=== PATIENT | female | born 1940 | race Two or more races ===

== ENCOUNTER 2017-01-17 09:47 | Inpatient (IN) | payer MEDICARE, OTHER ==
[2017-01-17] VITALS (7 sets, daily range): BP systolic 119–149; BP diastolic 55–71; PULSE 74–82; RESP 18–22; TEMP 98.4; Ht 157.5 cm; Wt 114.0 kg
[~2017-01-17] VITALS: Ht 157.5 cm; Wt 114.0 kg
[~2017-01-17 09:47] MED LIST: ALBU8.5H5 IH; ASPI-781 PO; BACL10TA PO; CARV3.12 PO; CELE200C PO; CHOL2000 PO; CLON-379 PO; GABA300C16 PO; GLIM2TAB PO; LEVO112T42 PO; LINA145C PO; LORA1TAB PO; MONT10TA21 PO; NIT4 SL; PANT40TA3 PO; PRAM0.25 PO; TRAM50TA2 PO
--- NOTE | 2017-01-17 10:27 | RADRPT ---
PROCEDURE: XR Chest. CLINICAL INDICATION: Stroke TECHNIQUE: Chest AP portable. COMPARISON: 09/25/2015 FINDINGS: The mediastinal structures are unremarkable. There is calcification of the thoracic aorta (consiste nt with atherosclerosis). There is mild cardiomegaly. There is pulmonary venous hypertension. Ther e are low lung volumes. No consolidation is identified. The pleural spaces are unremarkable. Ther e are senescent changes of the axial skeleton. IMPRESSION: Mild cardiomegaly. Pulmonary venous hypertension. RPTAT: HGDB .Erasmo Ziegler MD, MD Date Time Electronically viewed and signed by .Erasmo Ziegler MD, on 01/17/2017 10:26 .B/
[2017-01-17 10:37] LABS: ADD SCAN DIFF NO
[2017-01-17] MEDS ORDERED: AMLO-147 PO (10:37)
[2017-01-17] MEDS ORDERED: SIMV40TA2 PO (10:38)
[2017-01-17] MEDS ORDERED: POTA8CAP PO (10:38)
[2017-01-17] MEDS ORDERED: FURO40TA4 PO (10:38)
[2017-01-17] MEDS ORDERED: EZET10TA3 PO (10:39)
[2017-01-17] MEDS ORDERED: ZOLP10TA5 PO (10:39)
[2017-01-17] MEDS ORDERED: GLIM4TAB PO (10:41)
[2017-01-17] MEDS ORDERED: LORA10TA3 PO (10:42)
[2017-01-17 10:43] LABS: BASOPHILS % 0.3 % (0.0-2.0); EOSINOPHILS % 0.1 % (0.0-7.0); HEMATOCRIT 37.4 % (37.0-47.0); HEMOGLOBIN 11.6 g/dl (12.0-16.0); LYMPHOCYTES # 0.6 10^3/ul (0.8-2.9); LYMPHOCYTES % 7.9 % (15.0-51.0); MEAN CORPUSCULAR HEMOGLOBIN 28.2 pg (29.0-33.0); MEAN PLATELET VOLUME 10.5 fl (7.4-10.4); MONOCYTE # 0.6 10^3/ul (0.3-0.9); MONOCYTES % 7.1 % (0.0-11.0); NEUTROPHIL # 6.6 10^3/ul (1.6-7.5); NEUTROPHILS % 83.7 % (39.0-77.0); PLATELET COUNT 260 10^3/UL (140-415); RED BLOOD COUNT 4.11 10^6/ul (4.20-5.40); RED CELL DISTRIBUTION WIDTH 12.9 % (11.5-14.5); WHITE BLOOD COUNT 7.9 10^3/ul (4.8-10.8)
[2017-01-17] MEDS ORDERED: PRAM0.5T PO (10:48)
[2017-01-17] MEDS ORDERED: VALS1TAB78 PO (10:48)
[2017-01-17] MEDS ORDERED: METF-480 PO (10:51)
[2017-01-17] MEDS ORDERED: ASPI81TA3 PO (10:55)
--- NOTE | 2017-01-17 10:58 | RADRPT ---
PROCEDURE: CT Brain without contrast. CLINICAL INDICATION: Confusion. Evaluate for possible stroke. TECHNIQUE: A CT of the brain was performed on a high-resolution CT scanner utilizing a low dose te chnique with axial imaging from the skull base through the vertex without IV contrast. Multiplanar reformatted images were made. Images were reviewed on a PACS workstation. The CTDIvol is 44 mGy an d the DLP is 630.2 mGycm. One or more of the following dose reduction techniques were used: - Automated exposure control. - Adjustment of the mA and/or kV according to patient size. Use of iterative reconstruction technique. COMPARISON: None FINDINGS: The fourth ventricle is normal in size. The third and lateral ventricles are normal in size and con figuration. ) The brain parenchyma is unremarkable with idiopathic calcifications present in the bas al ganglia. There are chronic small vessel ischemic changes in the periventricular white matter tra cts adjacent to the lateral ventricles. There are vascular calcifications in the cavernous and supra cavernous portions of the internal carotid arteries. The visible portions of the globes and extraocular muscles are normal. The paranasal sinuses are cl ear. The mastoid air cells and internal auditory canals are normal. The bony calvarium is intact. IMPRESSION: 1. No evidence of an acute intracranial bleed or mass. No acute ischemic change is identified. 2. Chronic small vessel ischemic changes in the periventricular white matter tracts adjacent to the lateral ventricles. 3. There are vascular calcifications in the cavernous and supracavernous portions of the internal c arotid arteries. RPTAT:AAJJ Physician Bettina Date Time Electronically viewed and signed by Physician Bettina on 01/17/2017 10:58 NAVARRO/
[2017-01-17 11:02] LABS: CREATININE 9.24 mg/dl (0.44-1.00)
[2017-01-17 11:05] LABS: INR 1.1; PROTIME 14.2 Sec (12.2-14.2); PT RATIO 1.1
[2017-01-17 11:06] LABS: PARTIAL THROMBOPLASTIN TIME 29.8 Sec (25.0-35.0)
[2017-01-17 11:14] LABS: POTASSIUM 7.4 mmol/L (3.5-5.1)
[2017-01-17 11:15] LABS: TROPONIN-I 0.022 ng/ml (0.00-0.12)
[2017-01-17] MEDS ORDERED: DEXTROSE 50% 50 ML SYRINGE IV STA (11:15)
[2017-01-17 11:59] LABS: POTASSIUM 5.5 mmol/L (3.5-5.1)
[2017-01-17 12:01] LABS: CREATININE 7.52 mg/dl (0.44-1.00)
[2017-01-17 12:02] LABS: CALCIUM 6.9 mg/dl (8.4-10.2)
[2017-01-17] MEDS ORDERED: ONDANSETRON 4 MG INJ IV PRN (12:30)
[2017-01-17] MEDS ORDERED: NA BICARBONATE 8.4% 50 ML SYG IV ONE (12:30)
[2017-01-17] MEDS ORDERED: ACETAMINOPHEN 325 MG TAB PO PRN (12:30)
--- NOTE | 2017-01-17 13:50 | ERA ---
ER Documentation Chief Complaint Date/Time DATE: 01/17/17 TIME: 13:47 Chief Complaint fall HPI Patient is a 76-year-old female with diabetes who presents week. The patient was brought in by ambulance. The patient fell down in the street. She feels weak in the right leg and that started today at approximately 8:30 per the [id number]. The patient has had decreased intake by mouth. It is difficult to obtain history otherwise. ROS All systems reviewed and are negative except as per history of present illness. Medications Home Meds Active Scripts Nitroglycerin* (Nitrostat*) 25 Tab Subl, 0.4 MG SL Q5M Y for ANGINA, #30 3 dose max Prov:DAFNE GARCIA 09/27/15 Albuterol Sulfate* (Albuterol Sulfate* HFA) 8.5 Gm Hfa.aer.ad, 2 PUFF IH Q4 for SHORTNESS OF BREATH for 30 Days, EA 2 Refills Prov:RACHID SHAH MD 12/22/14 Reported Medications Aspirin* (Aspirin* Chew) 81 Mg Tab.chew, 81 MG PO DAILY, TAB.CHEW 01/17/17 Metformin* (Glucophage*) 850 Mg Tablet, 850 MG PO WITH BREAKFAST DINNE, #30 TAB 01/17/17 Valsartan-Hydrochlorothiazide (Valsartan-HCTZ) 160-25 Mg Tablet, 1 TAB PO DAILY , #30 TAB 01/17/17 Pramipexole* (Pramipexole*) 0.5 Mg Tablet, 0.5 MG PO HS, TAB 01/17/17 Loratadine* (Loratadine*) 10 Mg Tablet, 10 MG PO DAILY, #30 TAB 01/17/17 Glimepiride* (Glimepiride*) 4 Mg Tablet, 4 MG PO WITH BREAKFAST DINNE, TAB 01/17/17 Zolpidem Tartrate* (Zolpidem Tartrate*) 10 Mg Tablet, 10 MG PO QHS Y for INSOMNIA, #30 TAB 01/17/17 Ezetimibe* (Zetia*) 10 Mg Tablet, 10 MG PO DAILY, TAB 01/17/17 Simvastatin* (Zocor*) 40 Mg Tablet, 40 MG PO QHS, #30 TAB 01/17/17 Potassium Chloride* (Potassium Chloride*) 8 Meq Capsule.er, 8 MEQ PO DAILY, CAP 3/31/17 Furosemide* (Furosemide*) 40 Mg Tablet, 40 MG PO DAILY, TAB 01/17/17 Amlodipine Besylate* (Amlodipine Besylate*) 10 Mg Tablet, 10 MG PO DAILY, #30 TAB 01/17/17 Montelukast Sodium* (Singulair*) 10 Mg Tablet, 10 MG PO QHS, #30 TAB 09/25/15 Celecoxib* (Celebrex*) 200 Mg Capsule, 200 MG PO DAILY, CAP 09/25/15 Gabapentin* (Gabapentin*) 300 Mg Capsule, 300 MG PO BID, CAP 09/25/15 Linaclotide (LINZESS) 145 Mcg Capsule, 145 MCG PO DAILY, CAP 09/25/15 Carvedilol* (Coreg*) 3.125 Mg Tablet, 3.125 MG PO BID, TAB 12/20/14 Levothyroxine Sodium* (Levoxyl*) 112 Mcg Tablet, 112 MCG PO AC BREAKFAST, TAB 08/05/14 Tramadol HCl (Tramadol HCl) 50 Mg Tab, 50 MG PO BID Y for PAIN, TAB 08/05/14 Discontinued Reported Medications Cholecalciferol* (Vitamin D3*) 2,000 Unit Cap, 2000 UNIT PO DAILY, CAP 09/25/15 Lorazepam* (Lorazepam*) 1 Mg Tablet, 1 MG PO DAILY Y for ANXIETY, TAB 12/20/14 Baclofen* (Baclofen*) 10 Mg Tablet, 10 MG PO BID, TAB 08/05/14 Glimepiride* (Glimepiride*) 2 Mg Tablet, 2 MG PO BID, TAB 08/05/14 Pramipexole* (Pramipexole*) 0.25 Mg Tablet, 0.25 MG PO HS, TAB 08/05/14 Discontinued Scripts Pantoprazole* (Protonix*) 40 Mg Tablet.dr, 40 MG PO BID for 30 Days, TAB Prov:DAFNE GARCIA 09/28/15 Clonidine Hcl* (Clonidine Hcl*) 0.1 Mg Tab, 0.1 MG PO Q6H Y for ELEVATED BLOOD PRESSURE, #30 TAB Prov:DAFNE GARCIA 09/27/15 Aspirin* (Ecotrin*) 325 Mg Tabec, 81 MG PO DAILY for 30 Days Prov:DAFNE GARCIA 09/27/15 Allergies Allergies: Coded Allergies: No Known Drug Allergy (Verified Allergy, Unknown, 09/25/15) PMhx/Soc History of Surgery: Yes (HYSTERECTOMY) Anesthesia Reaction: No Hx Neurological Disorder: No Hx Respiratory Disorders: Yes (ASTHMA,BRONCHITIS) Hx Cardiac Disorders: Yes (CHF,HTN) Hx Psychiatric Problems: No Hx Miscellaneous Medical Probl: No Hx Alcohol Use: No Hx Substance Use: No Hx Tobacco Use: No FmHx Family History: No diabetes Physical Exam Vitals Vital Signs Date Time Temp Pulse Resp B/P Pulse Ox O2 Delivery O2 Flow Rate FiO2 01/17/17 12:09 89 19 118/63 100 Nasal Cannula 5.0 01/17/17 10:32 98.4 87 13 130/54 92 01/17/17 10:15 98.4 87 13 130/54 92 Room Air Physical Exam Const: No acute distress Head: Atraumatic Eyes: Normal Conjunctiva ENT: Normal External Ears, Nose and Mouth. Neck: Full range of motion..~ No meningismus. Resp: Clear to auscultation bilaterally Cardio: Regular rate and rhythm, no murmurs Abd: Soft, non tender, non distended. Normal bowel sounds Skin: No petechiae or rashes Back: No midline or flank tenderness Ext: No cyanosis, or edema Neur: Awake and alert, cranial nerves II through XII are intact, right lower extremity appears weaker than the left lower extremity although she is able to lift off the bed, no pronator drift Psych: Normal Mood and Affect Result Diagram: 01/17/17 1029 01/17/17 1145 Results 24 hrs Laboratory Tests Test 01/17/17 10:29 01/17/17 11:45 White Blood Count 7.910^3/ul Red Blood Count 4.1110^6/ul Hemoglobin 11.6g/dl Hematocrit 37.4% Mean Corpuscular Volume 91.0fl Mean Corpuscular Hemoglobin 28.2pg Mean Corpuscular Hemoglobin Concent 31.0g/dl Red Cell Distribution Width 12.9% Platelet Count 59905^3/UL Mean Platelet Volume 10.5fl Neutrophils % 83.7% Lymphocytes % 7.9% Monocytes % 7.1% Eosinophils % 0.1% Basophils % 0.3% Nucleated Red Blood Cells % 0.0/100WBC Neutrophils # 6.610^3/ul Lymphocytes # 0.610^3/ul Monocytes # 0.610^3/ul Eosinophils # 0.010^3/ul Basophils # 0.010^3/ul Nucleated Red Blood Cells # 0.010^3/ul Prothrombin Time 14.2Sec Prothrombin Time Ratio 1.1 INR International Normalized Ratio 1.10 Activated Partial Thromboplast Time 29.8Sec Sodium Level 132mmol/L 134mmol/L Potassium Level 7.4mmol/L 5.5mmol/L Chloride Level 94mmol/L 102mmol/L Carbon Dioxide Level 19mmol/L 18mmol/L Anion Gap 26 20 Blood Urea Nitrogen 91mg/dl 81mg/dl Creatinine 9.24mg/dl 7.52mg/dl Glucose Level 43mg/dl 398mg/dl Hemoglobin A1c 7.8% Calcium Level 9.0mg/dl 6.9mg/dl Troponin I 0.022ng/ml Current Medications Medications (Trade) Dose Ordered Sig/Tristian Route PRN Reason Start Time Stop Time Status Last Admin Dose Admin Dextrose (D50w Syringe) 50 ml ONCE STAT IV 01/17/17 11:15 01/17/17 11:16 DC 01/17/17 11:37 Sodium Bicarbonate (Na Bicarb 8.4% Syg) 50 ml ONCE ONCE IV 01/17/17 12:30 01/17/17 12:31 DC 01/17/17 12:27 Ondansetron HCl (Zofran Inj) 4 mg ER BRIDGE PRN IV NAUSEA AND/OR VOMITING 01/17/17 12:30 01/18/17 12:29 Acetaminophen (Tylenol Tab) 650 mg ER BRIDGE PRN PO MILD PAIN/FEVER 01/17/17 12:30 01/18/17 12:29 Procedures/MDM EKG read by me: Rate/Rhythm: Regular rate and rhythm at a normal rate Intervals: Normal Impression: No evidence of ischemia or arrhythmia PROCEDURE: CT Brain without contrast. CLINICAL INDICATION: Confusion. Evaluate for possible stroke. TECHNIQUE: A CT of the brain was performed on a high-resolution CT scanner utilizing a low dose technique with axial imaging from the skull base through the vertex without IV contrast. Multiplanar reformatted images were made. Images were reviewed on a PACS workstation. The CTDIvol is 44 mGy and the DLP is 630.2 mGycm. One or more of the following dose reduction techniques were used: - Automated exposure control. - Adjustment of the mA and/or kV according to patient size. Use of iterative reconstruction technique. COMPARISON: None FINDINGS: The fourth ventricle is normal in size. The third and lateral ventricles are normal in size and configuration. ) The brain parenchyma is unremarkable with idiopathic calcifications present in the basal ganglia. There are chronic small vessel ischemic changes in the periventricular white matter tracts adjacent to the lateral ventricles. There are vascular calcifications in the cavernous and supracavernous portions of the internal carotid arteries. The visible portions of the globes and extraocular muscles are normal. The paranasal sinuses are clear. The mastoid air cells and internal auditory canals are normal. The bony calvarium is intact. IMPRESSION: 1. No evidence of an acute intracranial bleed or mass. No acute ischemic change is identified. 2. Chronic small vessel ischemic changes in the periventricular white matter tracts adjacent to the lateral ventricles. 3. There are vascular calcifications in the cavernous and supracavernous portions of the internal carotid arteries. RPTAT:AAJJ Physician Bettina Date Time Electronically viewed and signed by Ishaan Mayes Physician on 01/17/2017 10:58 Patient is a 76-year-old female with diabetes who presents with weakness. The patient had a full workup but at this point I doubt true stroke. She was found to have acute renal failure with a BUN and creatinine of 81 and 7.52 and a potassium of 5.5. I believe this is likely the cause of her symptoms and weakness. The patient will likely need fluid resuscitation and will need to be evaluated to see if she will require dialysis. She was given D50 for hypoglycemia and then was given bicarbonate for the hyperkalemia. The patient will be admitted to Dr. Royal from the panel team to a telemetry bed. Given the age her prognosis is poor. At this point I doubt stroke, acute coronary syndrome, pulmonary embolism, or aortic dissection. Critical Care: Time: 35 minutes excluding all billable procedures. Treatments/Evaluations: Close monitoring and treatment of unstable vital signs, cardiorespiratory, and neurologic status, while maintaining tight balance of fluid, respiratory, and cardiac interventions. Departure Diagnosis: Primary Impression: Hyperkalemia Additional Impressions: Acute renal failure Qualified Code: N17.9 - Acute renal failure, unspecified acute renal failure type Weakness Condition: Serious RAFFAELE DONALDSON MD Jan 17, 2017 13:50
[2017-01-17] MEDS ORDERED: NACL 0.9% 3 ML SYG IV SCH (15:00)
[2017-01-17] MEDS ORDERED: ZOLPIDEM 5 MG TAB PO PRN (15:00)
[2017-01-17] MEDS ORDERED: NITROGLYCERIN (SL) 0.4 MG TAB SL PRN (15:00)
[2017-01-17] MEDS ORDERED: ALBUTEROL/IPRATROPIUM (NEB) 3 ML AMP HHN PRN (15:00)
--- NOTE | 2017-01-17 16:25 | HP ---
DATE OF ADMISSION: 01/17/2017 CHIEF COMPLAINT: Recent mechanical fall with suspicion of syncope. HISTORY OF PRESENT ILLNESS: This is a 76-year-old female with reported past medical history of diab etes as well as reported CHF, dyslipidemia, hypertension, obesity, diabetes, hypothyroidism who came to [facility] after suffering from a mechanical fall with suspect syncope. Accor ding to report, the patient was in her normal state of health. It was reported that she went to the bank this morning and that she had fallen to the floor. Accounts of this story are not very clear as the patient reported to be somnolent during visit and most history obtained from family members. The patient, however, was brought to [facility] by paramedics. On further examin ation, she was found to be in acute renal failure with a creatinine as high as 9.24. BUN respective ly at 91. She was also found to be hypoglycemic with blood glucose as low as 43. She was reportedl y given dextrose in the ER with good response. After discussion with family, was reported that she had just started to be placed on insulin. Exact units of this are unknown. Additionally, on admiss ion, she was found to have hyperkalemia at 10.4. From a recent review, she did have normal renal fu nction, roughly in September 2015 when she was admitted to the hospital. However, further decline of her renal function and etiology is unknown at this time. She also did have a chest x-ray done that did show her to have some mild cardiomegaly and pulmonary venous congestion. She also had brain CT scan of her head that did show no evidence of acute intracranial bleed or mass. No acute ischemic changes seen. There was seen chronic small vessel ischemic changes. The patient was afebrile. Cur rently, the patient is alert. She does report better breathing, but she is somewhat somnolent. We will evaluate her for the aforementioned issues. MEDICAL AND SURGICAL HISTORY 1. Congestive heart failure. 2. Diabetes. 3. Hypertension. 4. History of chronic obstructive pulmonary disease. 5. Hypothyroidism. 6. Dyslipidemia. SOCIAL HISTORY: No reports of cigarette smoking, alcohol consumption, or other illicit drug use. ALLERGIES: NO KNOWN ALLERGIES. FAMILY HISTORY: Noncontributory. HOME MEDICATIONS: 1. Loratadine 10 mg p.o. daily. 2. Albuterol HFA 2 puffs q hours as needed for shortness of breath. 3. Amlodipine 10 mg p.o. daily. 4. Carvedilol 3.125 mg p.o. b.i.d. 5. Zetia 10 mg p.o. every day. 6. Nitrostat 0.4 mg sublingual every 5 minutes as needed for chest pain. 7. Zocor 40 mg p.o. at bedtime. 8. Valsartan hydrochlorothiazide 160/25 one tab p.o. every day. 9. Aspirin 81 mg p.o. daily. 10. Celebrex 200 mg p.o. daily. 11. Neurontin 300 mg p.o. b.i.d. 12. Pramipexole 0.5 mg p.o. at bedtime. 13. Ambien 10 mg p.o. at bedtime as needed for insomnia. 14. Lasix 40 mg p.o. daily. 15. Potassium chloride 8 mEq p.o. every day. 16. Singulair 10 mg p.o. at bedtime. 17. Linzess 145 mcg p.o. daily. 18. Glimepiride 4 mg p.o. with breakfast. 19. Levothyroxine 112 mcg p.o. before every meal. 20. Metformin 850 mg p.o. with breakfast. REVIEW OF SYSTEMS: Unable to obtain full review of systems as the patient was somewhat somnolent du [facility]. PHYSICAL EXAMINATION: VITAL SIGNS: Temperature is 98.0, pulse 82, respiratory rate is 19, blood pressure 0.119/55, and pu lse ox is 94% on room air. GENERAL: This is a 76-year-old female, somewhat somnolent. No apparent signs or symptoms of distre ss at this time. EYES: Pupils equal, round, and reactive to light. Anicteric sclerae. NECK: The neck is supple, nontender, no JVD. CARDIOVASCULAR: S1, S2 auscultated, regular rate. PULMONARY: Diminished at lung bases. ABDOMEN: The patient is noted to be obese, but soft, nontender. EXTREMITIES: There is edema of bilateral lower extremities, +1 to +2. SKIN: Warm, dry, and intact. NEUROLOGIC: The patient is alert to verbal response, but somewhat lethargic. LABORATORY DATA: WBC 7.9, hemoglobin 11.6, hematocrit is 37.4, and platelets are 260. Sodium is 13 4, potassium now is 5.5, BUN is 81, creatinine 7.52, glucose now at 398. IMAGING: Chest x-ray done on 01/17/2017 did show mild cardiomegaly and pulmonary venous hypertensio n. Brain CT scan of the head on 01/17/2017 did show no evidence of acute intracranial bleed or mass , and no acute ischemic change identified and only chronic small vessel ischemic changes. IMPRESSION AND PLAN: 1. Mechanical fall, suspect syncope. The patient noted to be hypoglycemic during admission, likely attributing to her fall. Will adjust antidiabetic medications. Place the patient on mild insulin scale for now. Will get cylinder dyer pending clinical course. Of note, CT scan of the brain was negative. We will follow up on carotid study and echocardiogram. 2. Hypoglycemia. It was noted per patient's family that she was recently started on insulin. Exac t units of this are unknown. Will adjust insulin regimen. We will continue to monitor neuro status . Appears improved at present. 3. Acute renal failure. The patient with initial creatinine of 9.24 and BUN of 91. This is a sign ificant change from her baseline seen in September 2015. Stereoplotter Operator consulted. The patient also n oted to be hyperkalemic with renal dysfunction. Will provide with Kayexalate as needed. Follow up with the day care home mother's recommendations. 4. Hyperkalemia. We will provide with Kayexalate as needed. Follow up with nephrology recommendat ions. 5. Congestive heart failure with exacerbation. The patient was noted with pulmonary venous congest ion. Will defer diuretics to day care home mother. Will get a hedge fund principal to follow. We will place alex ent on bronchodilators as needed. We will continue the patient on oxygen supplement. 6. History of diabetes. We will follow up on A1c. The patient on insulin regimen for now. 7. Essential hypertension. We will continue with antihypertensives and adjust as needed. 8. History of dyslipidemia. Follow up on fasting lipid panel. We will continue the patient on dys lipidemia medication. 9. History of hypothyroidism. We will resume the patient's Synthroid medication for now. 10. History of diabetes. Follow up with A1c. The patient to will be continued on Neurontin for ne uropathy. ADMISSION PROCESS TIME: Forty minutes. Discussed plan of care with Dr. Villalba. Dictated By: DAFNE GARCIA MONOGRAM MACHINE OPERATOR for RODY HICKS/AYDIN Conf#: [id number] DID#: [id number]
[2017-01-17] MEDS ORDERED: GLUCOSE GEL 15 GRAM TUBE BUCCAL PRN (16:30)
[2017-01-17] MEDS ORDERED: GLUCAGON 1 MG INJ IM PRN (16:30)
[2017-01-17] MEDS ORDERED: GLUCOSE GEL 15 GRAM TUBE PO PRN ×2 (16:30)
[2017-01-17 16:47] LABS: ALBUMIN 4.3 g/dl (3.3-4.9)
[2017-01-17 16:50] LABS: TOTAL PROTEIN 7.4 g/dl (6.1-8.1)
--- NOTE | 2017-01-17 16:52 | RADRPT ---
Echocardiogram Report Patient Name: MAYUR RICHARDSON Gender: Female Date: 1940 Study Date: 17-Jan-2017 Associate Creative Director: Zayra Slater [facility] Location: [facility] Ref. Physician: DAFNE GARCIA Quality: Technically Difficult Study Procedures: Transthoracic echocardiogram with complete 2D, M-Mode, and doppler examination. Indications: Dyspnea. 2D/M Mode Doppler Measurement Value Normal Ranges Measurement Value Normal Ranges LVIDd 2D 5.3 3.5 - 5.6 cm AV Peak Ariel 2.3 m/sec LVIDs 2D 2.3 2.1 - 4.1 cm AV Peak PG 21.0 mmHg FS 2D 57.8 % LVOT Peak Ariel 1.5 m/sec LVPWd 2D 1.1 0.6 - 1.1 cm LVOT Peak PG 9.0 mmHg IVSd 2D 1.1 0.6 - 1.1 cm MV E Peak Ariel 0.8 m/sec IVS/LVPW 2D 1.0 MV A Peak Ariel 0.8 m/sec AoR Diam 2D 2.9 2.0 - 3.7 cm MV E/A 0.9 LA/Ao 2D 1 0 - 1 MV Decel Time 225 msec EDV 2D 151.0 cm3 MV E/A 0.9 ESV 2D 11.4 cm3 TR Peak Ariel 3.2 m/sec LA Dimen 2D 3.3 2.3 - 4.0 cm TR Peak PG 41.0 mmHg RVSP 49.0 mmHg Findings Left Ventricle: Normal left ventricular systolic function. Normal left ventricular cavity size. Normal left ventricular wall thickness. Ejection fraction is visually estimated at 6065 %. Tissue Doppler/Mitral Doppler indices are consistent with impaired relaxation (Stage I diastolic dysfunction). Right Ventricle: Normal right ventricular size. Normal right ventricular systolic function. Left Atrium: The left atrium is normal in size. Right Atrium: The right atrium is normal in size. Mitral Valve: Normal appearance of the mitral valve. Mild mitral annular calcification. Trace mitral regurgitation. Aortic Valve: Aortic sclerosis without stenosis. Trace aortic valve regurgitation. Tricuspid Valve: Estimated peak PA systolic pressure 49 mmHg. There is mild tricuspid regurgitation. Pulmonic Valve: Normal pulmonic valve appearance. Pericardium: Normal pericardium with no significant pericardial effusion. Aorta: Normal aortic root. IVC: Normal size and no respiratory collapse consistent with elevated right atrial pressure. Conclusions 1.The left ventricle is normal in size and systolic function. 2.Estimated left ventricular ejection fraction of 60-65%. 3.Mild left ventricular diastolic dysfunction. 4.Estimated RVSP of 49 mmHg. Electronically Signed By: Erick Sanchez 17-Jan-2017 16:51:53 -0700 Patient Name: MAYUR RICHARDSON Study Date: 17-Jan-2017 [id number]
[2017-01-17] MEDS: ALBUTEROL 18 GM INHALER INH SCH ×2 (17:00→21:00)
[2017-01-17] MEDS: ALBUTEROL/IPRATROPIUM (NEB) 3 ML AMP HHN SCH ×2 (17:00→20:58)
[2017-01-17] MEDS: DEXTROSE 50% 50 ML SYRINGE IV PRN (17:28)
[2017-01-17] MEDS: INSULIN ASPART [NOVOLOG] 3 ML PEN SC SCH ×2 (17:28→21:00)
[2017-01-17] MEDS ORDERED: SOD CHLORIDE 0.9% 1,000 ML IV SCH (18:00)
[2017-01-17] MEDS ORDERED: NA POLYST SULFON 15 GM/60 ML BTL PO ONE ×2 (18:00→22:30)
--- NOTE | 2017-01-17 20:14 | RADRPT ---
PROCEDURE: Renal US. CLINICAL INDICATION: Acute kidney injury. TECHNIQUE: Multiple sonographic images of the kidneys and urinary bladder were obtained. The imag es were reviewed on a PACS workstation. COMPARISON: No prior studies are available for comparison. FINDINGS: The right kidney measures 12.3 cm. The left kidney measures 11.1 cm. There is no renal mass. There is no hydronephrosis. There is no renal calculus. Renal parenchymal thickness and echogenicity is normal bilaterally. The perirenal regions are normal with no fluid collection or mass. The urinary bladder is empty. IMPRESSION: 1. Empty urinary bladder. 2. Normal kidneys with no hydronephrosis. RPTAT: QQ .Scott Borrego MD, Date Time Electronically viewed and signed by .Scott Borrego MD, MD on 01/17/2017 20:14 .R/
[2017-01-17 20:16] LABS: CREATININE 9.91 mg/dl (0.44-1.00)
[2017-01-17 20:17] LABS: CALCIUM 8.7 mg/dl (8.4-10.2)
[2017-01-17 20:21] LABS: POTASSIUM 7.2 mmol/L (3.5-5.1)
[2017-01-17] MEDS ORDERED: NON-FORMULARY/PATIENT OWN MED (Simvastatin* (Zocor*) 40 MG) PO SCH (21:00)
[2017-01-17] MEDS: MONTELUKAST 10 MG TAB PO SCH (21:12)
[2017-01-17] MEDS: ATORVASTATIN 20 MG TAB PO SCH (21:12)
[2017-01-17] MEDS: GABAPENTIN 300 MG CAP PO SCH (21:12)
[2017-01-17] MEDS ORDERED: CALCIUM GLUCONATE 10% 2 GM in SOD CHLORIDE 0.9% 100 ML IVPB ONE (23:00)
[2017-01-17] MEDS: PRAMIPEXOLE 0.25 MG TAB PO SCH (23:06)
[2017-01-17] MEDS ORDERED: ONDANSETRON INJ 8 MG in DEXTROSE 5% 50 ML IV PRN (23:30)
[2017-01-18] VITALS (18 sets, daily range): BP systolic 94–140; BP diastolic 52–68; PULSE 50–92; RESP 18–20
[2017-01-18] MEDS: ALBUTEROL 18 GM INHALER INH SCH ×6 (01:14→20:26)
[2017-01-18] MEDS: DEXTROSE 50% 50 ML SYRINGE IV PRN ×3 (02:54→11:11)
[2017-01-18] MEDS: ACCU-CHEK XX SCH (02:54)
[2017-01-18] MEDS: DEXTROSE 5%-0.45% NACL 1,000 ML IV SCH (04:00)
--- NOTE | 2017-01-18 05:45 | CONS ---
DATE OF ADMISSION: 01/17/2017 DATE OF CONSULTATION: 01/17/2017 TYPE OF CONSULTATION: Nephrology. REASON FOR CONSULTATION: Acute kidney injury and hyperkalemia. PHYSICIAN REQUESTING CONSULT: Nehemias Reyes NP HISTORY OF PRESENT ILLNESS: This is a 76-year-old female with a past medical history of CKD stage I II with unknown baseline creatinine, history of diabetes, history of CHF, dyslipidemia, hypertension , obesity, hypothyroidism, history of venous insufficiency, who presents to [facility] after suffering a mechanical fall with possible syncope. The patient was apparently in her [facility] state of health until 1 week ago according to the patient's daughter who was at bedside. She st ates over this time, the patient has been slightly more lethargic and confused. The patient had an apparent syncopal episode. As a result she was brought into the emergency room for evaluation. Upo n arrival, the patient was noted to be in acute kidney injury with a creatinine of 9.24, BUN of 91 a nd potassium 7.4. In the emergency room, the patient had a chest x-ray which showed mild cardiomega ly, pulmonary venous hypertension, and a CT scan of the head which showed no acute findings. The pa delgado was treated with sodium bicarbonate IV and dextrose. She was admitted to telemetry for furthe r evaluation. In terms of patient's renal history, per patient's daughter, she had some underlying CKD according t o her primary care physician but does not know what her baseline creatinine or her estimated EGFR is . The patient reports taking NSAIDs, Celebrex as well as taking diuretics, Lasix, hydrochlorothiazi de and valsartan as well as potassium supplementation. The patient denies any recent change in urin sindy output and denies any frothy urine. She denies any rashes, hematochezia or hemoptysis. PAST MEDICAL HISTORY: History of congestive heart failure, diabetes, hypertension, COPD, hypothyroi dism and dyslipidemia. SOCIAL HISTORY: No drinking or alcohol use. ALLERGIES: NO KNOWN DRUG ALLERGIES. FAMILY HISTORY: Noncontributory. MEDICATIONS: The patient's medications have been reviewed. PAST SURGICAL HISTORY: None. REVIEW OF SYSTEMS: A 14-point review of systems was conducted. Pertinent positives in HPI, otherwi se negative. PHYSICAL EXAMINATION: VITAL SIGNS: Blood pressure is 125/60, respiration is 14, pulse 82, temperature 98.0. HEENT: Head is normocephalic. NECK: Supple. Pupils are reactive. HEART: Regular rate. LUNGS: Show diminished breath sounds at base. ABDOMEN: Soft, obese, nontender to palpation without rebound or guarding. EXTREMITIES: Negative for clubbing, cyanosis. Positive nonpitting edema. DERMATOLOGIC: No rashes. MUSCULOSKELETAL: No joint effusions. NEUROLOGIC: Limited exam but no focal deficits. LABORATORY DATA: Shows a sodium 134, potassium 5, chloride 102, bicarbonate 18, BUN 81, creatinine 7.52, glucose 398. Hemoglobin A1c 7.8, calcium 6.9. White count 7.9, hemoglobin 11.6, hematocrit 3 7.4, platelet count is 260. IMAGING STUDIES: As stated in HPI. ASSESSMENT AND PLAN: This is a 76-year-old female who presents with: 1. Nonoliguric acute kidney injury on top of chronic kidney disease with unknown baseline creatinin e. Etiology of acute kidney injury is multifactorial secondary to hemodynamics, volume depletion fr om diuretic use and ARB effect. The possibility of tubular injury is also a consideration. Less l ikely is an acute GN, vasculitis or interstitial nephritis given the patient's clinical presentation . However, a full work will be done. We will check a renal ultrasound to rule out obstruction. Wi ll check UA with microanalysis. Will check urine electrolytes, calculate FENa (fractional excretio n of urea). Will start the patient on gentle IV hydration. Will hold diuretics, ARB and NSAID use. Will monitor renal function and I's and O's closely. There is no immediate need for renal replace ment therapy at this time; however, if renal function should not improve and/or the patient's hyperk alemia should worsen, would consider starting dialysis. 2. Hyperkalemia. Etiology is multifactorial secondary to acute kidney injury, ARB effect and potas sium supplementation. The patient's potassium levels have improved with medical management. Plan a t this point is to continue current IV hydration and will monitor potassium levels closely. We will repeat a BMP. If potassium levels are not able to be controlled through medical management, will th en consider starting renal replacement therapy. Please also note the patient's underlying hyperglyce miguel is a contributing factor. Would also expect potassium levels to improve once the patient achiev es euglycemic status. 3. Hyponatremia secondary to acute kidney injury and hyperglycemia. Continue to monitor. 4. Metabolic acidosis secondary to acute kidney injury. The plan is to monitor bicarbonate levels, consider checking an ABG. Patient is status post bicarbonate. No need for bicarbonate drip at thi s time. 5. Mineral bone disorder. Continue to monitor calcium and phosphorus levels. 6. Possible syncope, etiology was secondary to hemodynamics CT scan is negative. Continue to monit or. 7. History of congestive heart failure. The patient appears to be near euvolemic status. Chest x- ray shows pulmonary hypertension but no pulmonary edema. A 2D echo shows preserved ejection fractio n, elevated and dilated IVC, which may be secondary to pulmonary hypertension. At this point, will give the patient very gentle fluid challenge monitoring respiratory status, I's and O's closely. Ho ld diuretic therapy at this time. 8. Dyslipidemia. Continue statin therapy. 9. Hypothyroidism. Continue Synthroid. 10. Diabetes, continue Accu-Cheks and sliding scale. Thank you, Nehemias, for this interesting consultation. It will be a pleasure to follow patient with you throughout the hospital course. Dictated By: ELINA LAFLEUR/AYDIN Conf#: [id number] DID#: [id number]
[2017-01-18 07:20] LABS: ADD SCAN DIFF NO
[2017-01-18 07:37] LABS: BASOPHILS % 0.1 % (0.0-2.0); EOSINOPHILS % 0.1 % (0.0-7.0); HEMATOCRIT 36.1 % (37.0-47.0); HEMOGLOBIN 11.2 g/dl (12.0-16.0); LYMPHOCYTES % 11.5 % (15.0-51.0); MEAN CORPUSCULAR HEMOGLOBIN 28.5 pg (29.0-33.0); MEAN CORPUSCULAR VOLUME 91.9 fl (82.0-101.0); MEAN PLATELET VOLUME 11.2 fl (7.4-10.4); MONOCYTE # 0.6 10^3/ul (0.3-0.9); MONOCYTES % 7.6 % (0.0-11.0); NEUTROPHIL # 6.7 10^3/ul (1.6-7.5); NEUTROPHILS % 80.1 % (39.0-77.0); PLATELET COUNT 250 10^3/UL (140-415); RED BLOOD COUNT 3.93 10^6/ul (4.20-5.40); WHITE BLOOD COUNT 8.3 10^3/ul (4.8-10.8)
[2017-01-18 07:55] LABS: ALBUMIN 3.8 g/dl (3.3-4.9)
[2017-01-18] MEDS: INSULIN ASPART [NOVOLOG] 3 ML PEN SC SCH ×4 (07:55→20:35)
[2017-01-18 07:58] LABS: ALBUMIN/GLOBULIN RATIO 1.58; CREATININE 9.65 mg/dl (0.44-1.00); TOTAL PROTEIN 6.2 g/dl (6.1-8.1)
[2017-01-18 07:59] LABS: MAGNESIUM 1.9 mg/dl (1.7-2.5); PHOSPHORUS 7.9 mg/dl (2.5-4.9)
[2017-01-18 08:00] LABS: CHOL/HDL RATIO 4.3 RATIO
[2017-01-18 08:03] LABS: POTASSIUM 6.5 mmol/L (3.5-5.1)
[2017-01-18 08:13] LABS: T3 UPTAKE 41.7 % (23.5-40.5)
[2017-01-18 08:27] LABS: THYROID STIMULATING HORMONE 0.558 MIU/L (0.465-4.680)
[2017-01-18] MEDS ORDERED: NA POLYST SULFON 15 GM/60 ML BTL PO ONE (08:30)
[2017-01-18] MEDS ORDERED: CELECOXIB 200 MG CAP PO SCH (09:00)
[2017-01-18] MEDS ORDERED: NON-FORMULARY/PATIENT OWN MED (Linaclotide (Linzess) 145 MCG) PO SCH (09:00)
[2017-01-18] MEDS ORDERED: AMLODIPINE 10 MG TAB PO SCH (09:00)
[2017-01-18] MEDS: ALBUTEROL/IPRATROPIUM (NEB) 3 ML AMP HHN SCH ×4 (09:00→19:59)
[2017-01-18] MEDS: ASPIRIN 81 MG TAB PO SCH (09:20)
[2017-01-18] MEDS: EZETIMIBE 10 MG TAB PO SCH (09:20)
[2017-01-18] MEDS: LORATADINE 10 MG TAB PO SCH (09:20)
[2017-01-18] MEDS: LEVOTHYROXINE 112 MCG TAB PO SCH (09:20)
[2017-01-18] MEDS: GABAPENTIN 300 MG CAP PO SCH ×2 (09:21→20:23)
--- NOTE | 2017-01-18 09:53 | HP ---
DATE OF ADMISSION: 01/17/2017 VASCULAR SURGERY CONSULTATION Dear Doctors: Ms. Shetty is a 76-year-old female with a plethora of medical conditions who presented to [facility] secondary to a mechanical fall, with a suggestion of possible syncope. Niurka g her workup it was identified the patient having significant renal failure with hyperkalemia, in wh ich she requires emergent hemodialysis. Vascular surgical consultation was obtained for evaluation. At the moment, the patient does not seem to be mentating well and unable to answer any further que stions. REVIEW OF SYSTEMS: Unable to ascertain, as the patient unable to answer questions appropriately. PAST MEDICAL HISTORY: Entails congestive heart failure, unspecified diastolic or systolic, diabetes , hypertension, chronic obstructive pulmonary disease, hypothyroidism, dyslipidemia, significant mor bid obesity, BMI of 46, coronary artery disease, varicose veins. SURGICAL HISTORY: Unable to obtain any further information in regards to that for now, as the fami ly is not available at the bedside. SOCIAL HISTORY: There are reports from her records of no tobacco, alcohol or illicit drug use. ALLERGIES: NO KNOWN DRUG ALLERGIES. FAMILY HISTORY: Unable to ascertain. PHYSICAL EXAMINATION: GENERAL: Patient is awake and alert; however, not to orientation and time. HEENT: Normocephalic, atraumatic. EOMI. Mucosa moist. NECK: Supple. No carotid bruit. PULMONARY: Coarse breath sounds bilaterally, some crackles at the bases. CARDIOVASCULAR: S1, S2 present. No murmurs identified. ABDOMEN: Soft, nontender, nondistended. Bowel sounds positive. Large truncal obesity and pannus. EXTREMITIES: Very large legs. Unable to palpate the femoral pulse secondary to body habitus. Unab le to palpate pedal pulses secondary to edema. Motor and sensory seem to be intact. Capillary refi ll of 3 to 4 seconds. Extensive varicose veins throughout the lower legs from ankles all the way up to the knees and the large calves. ASSESSMENT AND PLAN: 1. Acute renal failure. It seems the patient has developed significant renal failure and hyperkalem ia in which she would require her hemodialysis urgently. Will plan to place an emergent hemodialysi s catheter for the patient. Will continue to follow with our nephrology colleagues as to ascertain if the patient had a baseline chronic kidney disease and if there is any further advancement of her renal failure. 2. Optimize vascular status (BP meds, diet, nutrition, exercise, sugar control, antiplatelets and w eight loss). 3. Discussed findings, plan and management with the patient's primary service. Thank you for allowing us to partake in the care of your patient. Please call with any questions. Dictated By: ALEIDA MUÑOZ/AYDIN Conf#: [id number] DID#: [id number]
--- NOTE | 2017-01-18 11:18 | PN ---
Date/Time of Note Date/Time of Note DATE: 01/18/17 TIME: 11:05 Assessment/Plan VTE Prophylaxis VTE Prophylaxis Intervention: SCD's Lines/Catheters IV [facility] Saline Lock Urinary Cath still in place: No Assessment/Plan Chief Complaint/Hosp Course 1. Mechanical fall, suspect syncope. The patient noted to be hypoglycemic during admission, likely attributing to her fall. Continue the patient on mild insulin scale for now. . Of note, CT scan of the brain was negative. We will follow up on carotid study and echocardiogram. 2. Hypoglycemia. It was noted per patient's family that she was recently started on insulin. Exact units of this are unknown. Considering patient's renal failure and patient on glimepiride at home, could have contributed to prolonged hypoglycemia. Will discontinue the medication of glimepiride. Monitor blood glucose before meals at bedtime 3. Acute renal failure. The patient with initial creatinine of 9.24 and BUN of 91. This is a significant change from her baseline seen in September 2015. Disk Sharpener following. Still with worse renal function. continue a diagnostic workup. Plan for dialysis 4. Hyperkalemia. We will provide with Kayexalate as needed. Follow up with nephrology recommendations. Plan for dialysis 5. Congestive heart failure with exacerbation. The patient was noted with pulmonary venous congestion. Will defer diuretics to kitchen lead. special technical operations officer to follow. We will place patient on bronchodilators as needed. We will continue the patient on oxygen supplement and titrate down as tolerated 6. History of diabetes. A1c: 7.7. The patient on insulin regimen for now. 7. Essential hypertension. We will continue with antihypertensives and adjust as needed. 8. History of dyslipidemia. Follow up on fasting lipid panel. We will continue the patient on dyslipidemia medication. 9. History of hypothyroidism. We will resume the patient's Synthroid medication for now. DISPO/PLAN: with worse renal function. plan for HD per kitchen lead Discussed plan of care with Dr. Villalba Problems: Subjective 24 Hr Interval Summary Free Text/Dictation more awake and alert at this time. family at bedside. Exam/Review of Systems Vital Signs Vitals Vital Signs Date Time Temp Pulse Resp B/P Pulse Ox O2 Delivery O2 Flow Rate FiO2 01/18/17 08:14 77 01/18/17 07:47 98.1 18 115/53 95 01/18/17 00:57 3.0 01/17/17 17:37 Nasal Cannula Intake and Output 01/17/17 01/17/17 01/18/17 15:00 23:00 07:00 Intake Total 240 ml 400 ml Output Total 3 ml Balance 240 ml 397 ml Exam General: Comfortable Eyes: Equal round Neck: Supple nontender, no JVD Cardiac: Regular rate. Pulmonary: No obvious wheezing rhonchi GI: Obese. Soft nontender Extremities: Minimal edema bilateral lower extremities Skin: CDI Neurologic: Alert and oriented 3 Results Result Diagram: 01/18/17 0602 01/18/17 0602 Results 24 hrs Laboratory Tests Test 01/17/17 11:45 01/17/17 16:20 01/17/17 17:27 01/17/17 17:59 Sodium Level 134 L Potassium Level 5.5 H Chloride Level 102 Carbon Dioxide Level 18 L Anion Gap 20 H Blood Urea Nitrogen 81 H Creatinine 7.52 H Glucose Level 398 #H Calcium Level 6.9 L Total Bilirubin 0.0 L Direct Bilirubin 0.00 Indirect Bilirubin 0.0 Aspartate Amino Transf (AST/SGOT) 45 Alanine Aminotransferase (ALT/SGPT) 35 Alkaline Phosphatase 77 Creatine Kinase 225 H Total Protein 7.4 Albumin 4.3 Bedside Glucose 47 *L 119 Test 01/17/17 19:55 01/17/17 21:03 01/18/17 02:38 01/18/17 02:53 Sodium Level 132 L Potassium Level 7.2 *H Chloride Level 91 #L Carbon Dioxide Level 22 Anion Gap 26 H Blood Urea Nitrogen 96 H Creatinine 9.91 #H Glucose Level 150 # Calcium Level 8.7 Bedside Glucose 101 27 *L 161 Test 01/18/17 03:18 01/18/17 03:37 01/18/17 05:26 01/18/17 06:02 Bedside Glucose 118 100 64 L 61 L White Blood Count 8.3 Red Blood Count 3.93 L Hemoglobin 11.2 L Hematocrit 36.1 L Mean Corpuscular Volume 91.9 Mean Corpuscular Hemoglobin 28.5 L Mean Corpuscular Hemoglobin Concent 31.0 L Red Cell Distribution Width 13.0 Platelet Count 250 Mean Platelet Volume 11.2 H Neutrophils % 80.1 H Lymphocytes % 11.5 L Monocytes % 7.6 Eosinophils % 0.1 Basophils % 0.1 Nucleated Red Blood Cells % 0.0 Neutrophils # 6.7 Lymphocytes # 1.0 Monocytes # 0.6 Eosinophils # 0.0 Basophils # 0.0 Nucleated Red Blood Cells # 0.0 Sodium Level 132 L Potassium Level 6.5 *H Chloride Level 93 L Carbon Dioxide Level 24 Anion Gap 22 H Blood Urea Nitrogen 95 H Creatinine 9.65 H Glucose Level 48 #*L Hemoglobin A1c 7.7 H Calcium Level 9.0 Phosphorus Level 7.9 H Magnesium Level 1.9 Total Bilirubin 0.0 L Direct Bilirubin 0.00 Indirect Bilirubin 0.0 Aspartate Amino Transf (AST/SGOT) 37 Alanine Aminotransferase (ALT/SGPT) 38 Alkaline Phosphatase 69 Total Protein 6.2 # Albumin 3.8 Globulin 2.40 Albumin/Globulin Ratio 1.58 Triglycerides Level 197 H Cholesterol Level 188 LDL Cholesterol, Calculated 106 HDL Cholesterol 43 Cholesterol/HDL Ratio 4.3 Thyroid Stimulating Hormone (TSH) 0.558 Free Thyroxine Index 1.33 Thyroxine (T4) 3.2 L Triiodothyronine (T3) Uptake 41.7 H Test 01/18/17 06:35 01/18/17 07:58 Bedside Glucose 123 75 Medications Medications Current Medications Albuterol (Ventolin Hfa) 2 puff Q4 INH Last administered on 01/18/17 05:00; Admin Dose 2 PUFF; Start 01/17/17 at 17:00 Amlodipine Besylate (Norvasc) 10 mg DAILY PO Last administered on 01/18/17 09: 20; Admin Dose 10 MG; Start 01/18/17 at 09:00 Aspirin (Aspirin) 81 mg DAILY PO Last administered on 01/18/17 09:20; Admin Dose 81 MG; Start 01/18/17 at 09:00 Carvedilol (Coreg) 3.125 mg BID PO Last administered on 01/18/17 09:21; Admin Dose 3.125 MG; Start 01/17/17 at 21:00 EZETIMIBE (Zetia) 10 mg DAILY PO Last administered on 01/18/17 09:20; Admin Dose 10 MG; Start 01/18/17 at 09:00 Gabapentin (Neurontin) 300 mg BID PO Last administered on 01/18/17 09:21; Admin Dose 300 MG; Start 01/17/17 at 21:00 Loratadine (Claritin) 10 mg DAILY PO Last administered on 01/18/17 09:20; Admin Dose 10 MG; Start 01/18/17 at 09:00 Montelukast Sodium (Singulair) 10 mg QHS PO Last administered on 01/17/17 21: 12; Admin Dose 10 MG; Start 01/17/17 at 21:00 Nitroglycerin (Nitroglycerin (Sl Tab) 0.4 Mg) 1 tab Q5M PRN SL ANGINA; Start at 15:00 Pramipexole (Mirapex) 0.5 mg HS PO Last administered on 01/17/17 23:06; Admin Dose 0.5 MG; Start 01/17/17 at 21:00 Tramadol HCl (Ultram) 50 mg BID PRN PO PAIN; Start 01/17/17 at 15:00 Miscellaneous Information 145 mcg DAILY PO ; Start 01/18/17 at 09:00; Status UNV Diagnostic Test (Pha) (Accu-Chek) 1 ea 02 XX Last administered on 01/18/17 02: 54; Admin Dose 1 EA; Start 01/18/17 at 02:00 Atorvastatin Calcium (Lipitor) 20 mg DAILY@21 PO Last administered on 21:12; Admin Dose 20 MG; Start 01/17/17 at 21:00 Miscellaneous Information 1 ea NOTE XX ; Start 01/17/17 at 16:30 Glucose (Glutose) 15 gm Q15M PRN PO DECREASED GLUCOSE; Start 01/17/17 at 16:30 Glucose (Glutose) 22.5 gm Q15M PRN PO DECREASED GLUCOSE; Start 01/17/17 at 16: 30 Dextrose (D50w Syringe) 25 ml Q15M PRN IV DECREASED GLUCOSE Last administered on 01/18/17 06:06; Admin Dose 25 ML; Start 01/17/17 at 16:30 Dextrose (D50w Syringe) 50 ml Q15M PRN IV DECREASED GLUCOSE Last administered on 01/17/17 17:28; Admin Dose 50 ML; Start 01/17/17 at 16:30 Glucagon (Glucagen) 1 mg Q15M PRN IM DECREASED GLUCOSE; Start 01/17/17 at 16:30 Glucose 15 gm 15 gm Q15M PRN BUCCAL DECREASED GLUCOSE; Start 01/17/17 at 16:30 Ondansetron HCl 8 mg/Dextrose 54 ml @ 108 mls/hr Q6H PRN IV NAUSEA AND/OR VOMITING Last administered on 01/18/17 01:13; Admin Dose 108 MLS/HR; Start 01/17 at 23:30 Dextrose/Sodium Chloride (D5-1/2ns) 1,000 ml @ 50 mls/hr Q20H IV Last administered on 01/18/17 04:00; Admin Dose 50 MLS/HR; Start 01/18/17 at 04:00 DAFNE GARCIA Jan 18, 2017 11:15
[2017-01-18 11:33] LABS: ADD UMIC YES; URINE BILIRUBIN (Dip) NEGATIVE (NEGATIVE); URINE BLOOD (Dip) 2+ (NEGATIVE); URINE COLOR LT. YELLOW (YELLOW); URINE GLUCOSE (Dip) NEGATIVE (NEGATIVE); URINE KETONES (Dip) NEGATIVE (NEGATIVE); URINE LEUKOCYTE ESTERASE (Dip) NEGATIVE (NEGATIVE); URINE NITRITE (Dip) NEGATIVE (NEGATIVE); URINE TOTAL PROTEIN (Dip) 2+ (NEGATIVE); URINE UROBILINOGEN (Dip) 0.2 E.U./dL (0.1-1.0)
[2017-01-18 11:53] LABS: BACTERIA,URINE FEW
[2017-01-18 12:00] LABS: BARBITURATES Negative (NEGATIVE); BENZODIAZEPINES Negative (NEGATIVE); CANNABINOIDS Negative (NEGATIVE); COCAINE Negative (NEGATIVE); OPIATES Negative (NEGATIVE)
[2017-01-18] MEDS ORDERED: HEPARIN 1000 UNITS/ML 10 ML INJ CATHETER ONE (12:30)
--- NOTE | 2017-01-18 13:11 | RADRPT ---
PROCEDURE: XR Chest. CLINICAL INDICATION: Status post Chano catheter placement. TECHNIQUE: Single frontal view of the chest was obtained COMPARISON: Chest x-ray 01/17/2017. FINDINGS: The soft tissues are normal. There are osteophytes in the thoracic spine. The there is a suboptima l inspiratory effort given the heart a transverse configuration. The heart is mildly enlarged. The cardiomediastinal silhouette and hilar structures are normal. The pulmonary vasculature is increase d. There are vascular calcifications in the aortic arch. The Chano catheter enters from a left in ternal jugular approach with its tip projecting on the as the lateral wall of the superior vena cava . There are interstitial infiltrates in the perihilar areas and compressive atelectasis in the bases of the lungs. Small pleural effusions are suspected. IMPRESSION: 1. Cardiomegaly with mild heart failure with interstitial pulmonary edema. 2. No evidence of pneumothorax following placement of a Chano catheter. 3. The Chano catheter tip is directed horizontally against the side wall of the superior vena cav a. Repositioning of the catheter parallel to the wall of the superior vena cava recommended if poss ible. RPTAT:AAJJ Physician Bettina Date Time Electronically viewed and signed by Physician Bettina on 01/18/2017 13:11 NAVARRO/
--- NOTE | 2017-01-18 14:38 | RADRPT ---
PROCEDURE: US Carotids. CLINICAL INDICATION: Syncope TECHNIQUE: Multiple sonographic of the carotid arteries were obtained utilizing solomon scale imaging . Color and Doppler imaging was performed. The images were reviewed on a PACS workstation. COMPARISON: No prior studies are available for comparison. FINDINGS: LocationRightLeft CCA64 cm/sec88 cm/sec Prox ICA71 cm/sec58 cm/sec Mid ICA89 cm/sec61 cm/sec Dist ICA92 cm/sec58 cm/sec ECA80 cm/sec62 cm/sec ICA/CCA1.40.7 Antegrade flow is seen within the vertebral arteries bilaterally. Mild plaque is noted within the bi lateral carotid bulbs. No hemodynamically significant stenosis or occlusion is identified. IMPRESSION: 1. No evidence for hemodynamically significant stenosis or occlusion. 2. Antegrade flow seen within the vertebral arteries bilaterally. Validated velocity measurements with angiographic measurements, velocity criteria are extrapolated f rom diameter data as defined by the Society of Radiologists in Ultrasound Consensus Conference (Radi ology 2003; 229; 340-346). This study does indirectly reference the measurement of the distal ICA d iameter as the denominator for stenosis measurement. RPTAT: QQ .Bud Escobedo MD, Date Time Electronically viewed and signed by .Bud Escobedo MD, on 01/18/2017 14:37 .R/
[2017-01-18] MEDS: [UNRECOGNIZED DRUG - REMARK] XX SCH (17:00)
[2017-01-18] MEDS: traMADol 50 MG TAB PO PRN (20:23)
[2017-01-18] MEDS: ATORVASTATIN 20 MG TAB PO SCH (20:23)
[2017-01-18] MEDS: MONTELUKAST 10 MG TAB PO SCH (20:24)
[2017-01-18] MEDS: PRAMIPEXOLE 0.25 MG TAB PO SCH (20:24)
[2017-01-18] MEDS: ZOLPIDEM 5 MG TAB PO PRN (22:30)
[2017-01-19] VITALS (19 sets, daily range): BP systolic 99–163; BP diastolic 43–89; PULSE 64–99; RESP 16–18
[2017-01-19] MEDS: DEXTROSE 5%-0.45% NACL 1,000 ML IV SCH
[2017-01-19] MEDS: [UNRECOGNIZED DRUG - REMARK] XX SCH ×3 (01:00→17:00)
[2017-01-19] MEDS: ALBUTEROL 18 GM INHALER INH SCH ×4 (01:00→13:00)
[2017-01-19] MEDS: ACCU-CHEK XX SCH (02:00)
--- NOTE | 2017-01-19 05:48 | CONS ---
DATE OF ADMISSION: 01/17/2017 DATE OF CONSULTATION: 01/18/2017 PRIMARY PHYSICIAN: Nehemias Garcia NP REASON FOR CONSULTATION: Shortness of breath. HISTORY OF PRESENT ILLNESS: Briefly, this is a 76-year-old female with history of stage III CKD, di abetes, hypertension, congestive heart failure, hyperlipidemia, obesity, hypertension, hypothyroidis m, chronic peripheral venous insufficiency who was admitted a day prior after sustaining a mechanica l fall with possible presyncope. Apparently, she has been somewhat lethargic during this period of time and has had worsening of her BUN and creatinine as well as hyperkalemia. The patient has been evaluated now by nephrology and has a dialysis catheter in place with plans to initiate dialysis. PAST MEDICAL HISTORY: As noted above. ALLERGIES: NONE. MEDICATIONS: Please see MAR. FAMILY HISTORY: Noncontributory. SOCIAL HISTORY: No tobacco, alcohol or illicit drug use. REVIEW OF SYSTEMS: As noted in the HPI. PHYSICAL EXAMINATION: VITAL SIGNS: Heart rate is 78, blood pressure 108/57, oxygen saturation 94% on 2 liters. HEENT: Large neck. Crowded oropharynx. Elevated jugular venous pressures. CARDIOVASCULAR: Regular rate and rhythm, distant S1 and S2. CHEST: Fine coarse bibasilar crackles. ABDOMEN: Obese, nontender, no hepatosplenomegaly. EXTREMITIES: There is extensive lower extremity edema bilaterally. No cyanosis or clubbing. LABORATORY DATA: WBC is 8.3, hemoglobin is 11.2, platelets are 250, BUN is 95 and creatinine is 9.6 . Chest x-ray shows evidence of pulmonary venous congestion. IMPRESSION: 1. Shortness of breath and mild hypoxemia, likely secondary to volume overload due to the patient's renal failure as well as a component of congestive heart failure exacerbation. 2. Renal failure requiring hemodialysis. 3. Hypertensive heart disease. 4. Morbid obesity. 5. Hyperlipidemia. 6. Hypothyroidism. RECOMMENDATIONS: 1. As per food assembler, plan for HD and ultrafiltration. 2. Would benefit from an arterial blood gas to assess baseline PaCO2. 3. We will obtain a chest x-ray in 1 to 2 days after undergoing hemodialysis and ultrafiltration. 4. DVT prophylaxis in place. Dictated By: NYLA BRUMFIELD/AYDIN Conf#: [id number] DID#: [id number] CC: NEHEMIAS GARCIA NP; LIN BARRAZA MD;*[facility]*
[2017-01-19 06:15] LABS: ADD SCAN DIFF NO
[2017-01-19 06:32] LABS: BASOPHILS % 0.3 % (0.0-2.0); EOSINOPHILS # 0.1 10^3/ul (0.0-0.5); EOSINOPHILS % 1.6 % (0.0-7.0); HEMATOCRIT 33.8 % (37.0-47.0); HEMOGLOBIN 10.6 g/dl (12.0-16.0); LYMPHOCYTES # 0.8 10^3/ul (0.8-2.9); LYMPHOCYTES % 12.4 % (15.0-51.0); MEAN CORPUSCULAR HEMOGLOBIN 28.4 pg (29.0-33.0); MEAN CORPUSCULAR HGB CONC 31.4 g/dl (32.0-37.0); MEAN CORPUSCULAR VOLUME 90.6 fl (82.0-101.0); MEAN PLATELET VOLUME 10.9 fl (7.4-10.4); MONOCYTE # 0.6 10^3/ul (0.3-0.9); NEUTROPHIL # 4.7 10^3/ul (1.6-7.5); NEUTROPHILS % 76.1 % (39.0-77.0); PLATELET COUNT 202 10^3/UL (140-415); RED BLOOD COUNT 3.73 10^6/ul (4.20-5.40); RED CELL DISTRIBUTION WIDTH 12.9 % (11.5-14.5); WHITE BLOOD COUNT 6.2 10^3/ul (4.8-10.8)
[2017-01-19 06:39] LABS: POTASSIUM 4.6 mmol/L (3.5-5.1)
[2017-01-19 06:41] LABS: CREATININE 8.84 mg/dl (0.44-1.00)
[2017-01-19 06:42] LABS: CALCIUM 7.7 mg/dl (8.4-10.2)
[2017-01-19] MEDS: INSULIN ASPART [NOVOLOG] 3 ML PEN SC SCH ×4 (07:55→21:57)
[2017-01-19] MEDS: LEVOTHYROXINE 112 MCG TAB PO SCH (09:00)
[2017-01-19] MEDS: ALBUTEROL/IPRATROPIUM (NEB) 3 ML AMP HHN SCH ×4 (09:00→21:00)
[2017-01-19 09:26] LABS: HAAIG REFLEX REFLEX FILED
[2017-01-19] MEDS: EZETIMIBE 10 MG TAB PO SCH (09:48)
[2017-01-19] MEDS: LORATADINE 10 MG TAB PO SCH (09:48)
[2017-01-19] MEDS: GABAPENTIN 300 MG CAP PO SCH ×2 (09:48→21:59)
[2017-01-19] MEDS: ASPIRIN 81 MG TAB PO SCH (09:48)
--- NOTE | 2017-01-19 10:09 | PN ---
DATE: 01/19/2017 SUBJECTIVE: Yesterday, the patient had urgent hemodialysis which she tolerated well. The patient i s currently clinically stable this morning. No hemoptysis, hematemesis, or hematochezia. No other events noted. OBJECTIVE: VITAL SIGNS: Blood pressure is 115/63, respiration 18, pulse 63, temperature 99.0. HEENT: Head is normocephalic. NECK: Supple. HEART: Regular rate. LUNGS: Show diminished breath sounds at base. Positive rhonchi. ABDOMEN: Soft, nontender to palpation. No rebound or guarding. EXTREMITIES: Negative for clubbing, cyanosis. Positive edema, nonpitting. DERMATOLOGIC: No rashes. MUSCULOSKELETAL: No joint effusions. NEUROLOGIC: No change in exam. MEDICATIONS: The patient's medications have been reviewed. LABORATORY DATA: Shows sodium 136, potassium 4.6, chloride 93, BUN 71, creatinine 8.84. White coun t 6.2, hemoglobin 10.6, hematocrit 30.8, platelet count 202. Urinalysis shows coarse granular casts , protein creatinine ratio 2.5 g per gram of creatinine, minimal pyuria, hematuria. Renal ultrasoun d has been reviewed. ASSESSMENT AND PLAN: 1. Oligoanuric acute kidney injury on top of chronic kidney disease with unknown baseline creatinin e. Etiology of acute kidney injury is secondary to acute tubular necrosis, likely multifactorial in etiology due to NSAID use, ARB effect, diuretics. The possibility of an acute glomerulonephritis i s less likely; however, given the patient's acute presentation and proteinuria on urinalysis, a full serological workup will be done. We will check complements, GOLDY, anti-double stranded DNA. We ciera l check SPEP and UPEP with immunofixation, cryoglobulins, and hepatitis panel. The patient is curre ntly dialysis dependent due to hyperkalemia and uremia. The patient had hemodialysis yesterday and tolerated well. Plan for dialysis again today and tomorrow for solute clearance and volume removal. We will continue to monitor any evidence of renal recovery closely. 2. Hyperkalemia secondary to acute kidney injury, improved. Continue dialysis on a low potassium b ath. 3. Hyponatremia secondary to acute kidney injury, improved. Continue dialysis 140 sodium bath. 4. Metabolic acidosis secondary to acute kidney injury, resolved. Continue dialysis. 5. Mineral bone disorder. Continue to monitor calcium and phosphorus levels. 6. Possible syncope. Continue to monitor. 7. Congestive heart failure. The patient appears volume overloaded. Continue ultrafiltration dial ysis. We will discontinue IV fluids. 8. Dyslipidemia. Continue statin therapy. 9. Hypothyroidism. Continue Synthroid. 10. Diabetes. Continue Accu-Cheks and insulin sliding scale. Dictated By: ELINA LAFLEUR/AYDIN Conf#: [id number] DID#: [id number]
--- NOTE | 2017-01-19 11:04 | PN ---
Date/Time of Note Date/Time of Note DATE: 01/19/17 TIME: 10:59 Assessment/Plan VTE Prophylaxis VTE Prophylaxis Intervention: SCD's Lines/Catheters IV [facility]atheter [facility] (from [facility]): Chano cath Urinary Cath still in place: No Assessment/Plan Chief Complaint/Hosp Course 1. Mechanical fall, suspect syncope. The patient noted to be hypoglycemic during admission, likely attributing to her fall. Continue the patient on mild insulin scale for now. . Of note, CT scan of the brain was negative. echo with EF: 60-65%. carotid doppler: No evidence for hemodynamically significant stenosis or occlusion. Will monitor for now 2. Hypoglycemia. It was noted per patient's family that she was recently started on insulin. Exact units of this are unknown. Considering patient's renal failure and patient on glimepiride at home, could have contributed to prolonged hypoglycemia. Glimepiride was discontinued.. On mild insulin sliding scale for now. 3. Acute renal failure. Patient was noted with uremia and electrolyte abnormality. Now on dialysis per nephrology. Continue with recommendations 4. Hyperkalemia. Now on dialysis. Improved at this time. Continue to monitor level 5. Congestive heart failure with exacerbation. The patient was noted with pulmonary venous congestion. Will defer diuretics to supervisor wet pour. software design analyst to follow. We will place patient on bronchodilators as needed. We will continue the patient on oxygen supplement and titrate down as tolerated 6. History of diabetes. A1c: 7.7. The patient on insulin regimen for now. will adjust as needed 7. Essential hypertension. We will continue with antihypertensives and adjust as needed. 8. History of dyslipidemia. continue on dyslipidemia medication 9. History of hypothyroidism. cont synthroid. DISPO/PLAN: Continue dialysis per nephrology. Follow up with recommendations. Discharge when medically stable. Follow-up chest radiograph per pulmonary Discussed plan of care with Dr. Villalba Problems: Subjective 24 Hr Interval Summary Free Text/Dictation comfortable at present. no apparent distress at this time Exam/Review of Systems Vital Signs Vitals Vital Signs Date Time Temp Pulse Resp B/P Pulse Ox O2 Delivery O2 Flow Rate FiO2 01/19/17 09:00 94 20 94 Nasal Cannula 3.0 01/19/17 07:51 99.0 115/63 Intake and Output 01/18/17 01/18/17 01/19/17 14:59 22:59 06:59 Intake Total 1300 ml 675 ml Output Total 3600 ml Balance -2300 ml 675 ml Exam General: Comfortable. no s/s of resp distress Eyes: Equal round Neck: no JVD Cardiac: Regular rate. on monitor Pulmonary: No obvious wheezing rhonchi GI: Obese. Soft nontender Extremities: Minimal edema bilateral lower extremities unchanged Skin: CDI Neurologic: Alert and oriented 3 Results Result Diagram: 01/19/17 0540 01/19/17 0540 Results 24 hrs Laboratory Tests Test 01/18/17 12:45 01/18/17 16:15 01/18/17 20:33 01/19/17 05:40 Bedside Glucose 103 72 114 White Blood Count 6.2 # Red Blood Count 3.73 L Hemoglobin 10.6 L Hematocrit 33.8 L Mean Corpuscular Volume 90.6 Mean Corpuscular Hemoglobin 28.4 L Mean Corpuscular Hemoglobin Concent 31.4 L Red Cell Distribution Width 12.9 Platelet Count 202 Mean Platelet Volume 10.9 H Neutrophils % 76.1 Lymphocytes % 12.4 L Monocytes % 9.0 Eosinophils % 1.6 Basophils % 0.3 Nucleated Red Blood Cells % 0.0 Neutrophils # 4.7 Lymphocytes # 0.8 Monocytes # 0.6 Eosinophils # 0.1 Basophils # 0.0 Nucleated Red Blood Cells # 0.0 Sodium Level 136 Potassium Level 4.6 Chloride Level 93 L Carbon Dioxide Level 27 Anion Gap 21 H Blood Urea Nitrogen 71 H Creatinine 8.84 H Glucose Level 119 # Calcium Level 7.7 L Test 01/19/17 08:02 01/19/17 09:05 Bedside Glucose 102 Complement C3 Pending Complement C4 Pending Hepatitis B Surface Antigen Pending Hepatitis B Core Total Antibody Pending Hepatitis C Antibody Pending Medications Medications Current Medications Albuterol (Ventolin Hfa) 2 puff Q4 INH Last administered on 01/19/17 09:47; Admin Dose 2 PUFF; Start 01/17/17 at 17:00 Amlodipine Besylate (Norvasc) 10 mg DAILY PO Last administered on 01/18/17 09: 20; Admin Dose 10 MG; Start 01/18/17 at 09:00; Status Future Hold Aspirin (Aspirin) 81 mg DAILY PO Last administered on 01/19/17 09:48; Admin Dose 81 MG; Start 01/18/17 at 09:00 Carvedilol (Coreg) 3.125 mg BID PO Last administered on 01/19/17 09:48; Admin Dose 3.125 MG; Start 01/17/17 at 21:00 EZETIMIBE (Zetia) 10 mg DAILY PO Last administered on 01/19/17 09:48; Admin Dose 10 MG; Start 01/18/17 at 09:00 Gabapentin (Neurontin) 300 mg BID PO Last administered on 01/19/17 09:48; Admin Dose 300 MG; Start 01/17/17 at 21:00 Loratadine (Claritin) 10 mg DAILY PO Last administered on 01/19/17 09:48; Admin Dose 10 MG; Start 01/18/17 at 09:00 Montelukast Sodium (Singulair) 10 mg QHS PO Last administered on 01/18/17 20:24 ; Admin Dose 10 MG; Start 01/17/17 at 21:00 Nitroglycerin (Nitroglycerin (Sl Tab) 0.4 Mg) 1 tab Q5M PRN SL ANGINA; Start at 15:00 Pramipexole (Mirapex) 0.5 mg HS PO Last administered on 01/18/17 20:24; Admin Dose 0.5 MG; Start 01/17/17 at 21:00 Tramadol HCl (Ultram) 50 mg BID PRN PO PAIN Last administered on 01/18/17 20:23 ; Admin Dose 50 MG; Start 01/17/17 at 15:00 Miscellaneous Information 145 mcg DAILY PO ; Start 01/18/17 at 09:00; Status UNV Diagnostic Test (Pha) (Accu-Chek) 1 ea 02 XX Last administered on 01/18/17 02: 54; Admin Dose 1 EA; Start 01/18/17 at 02:00 Atorvastatin Calcium (Lipitor) 20 mg DAILY@21 PO Last administered on 01/18/17 20:23; Admin Dose 20 MG; Start 01/17/17 at 21:00 Miscellaneous Information 1 ea NOTE XX ; Start 01/17/17 at 16:30 Glucose (Glutose) 15 gm Q15M PRN PO DECREASED GLUCOSE; Start 01/17/17 at 16:30 Glucose (Glutose) 22.5 gm Q15M PRN PO DECREASED GLUCOSE; Start 01/17/17 at 16: 30 Dextrose (D50w Syringe) 25 ml Q15M PRN IV DECREASED GLUCOSE Last administered on 01/18/17 06:06; Admin Dose 25 ML; Start 01/17/17 at 16:30 Dextrose (D50w Syringe) 50 ml Q15M PRN IV DECREASED GLUCOSE Last administered on 01/18/17 11:11; Admin Dose 50 ML; Start 01/17/17 at 16:30 Glucagon (Glucagen) 1 mg Q15M PRN IM DECREASED GLUCOSE; Start 01/17/17 at 16:30 Glucose 15 gm 15 gm Q15M PRN BUCCAL DECREASED GLUCOSE; Start 01/17/17 at 16:30 Ondansetron HCl/ Dextrose (Zofran Inj/D5W) 54 ml @ 108 mls/hr Q6H PRN IV NAUSEA AND/OR VOMITING Last administered on 01/18/17 01:13; Admin Dose 108 MLS/ HR; Start 01/17/17 at 23:30 Miscellaneous Information (*Order Clarification Bulletin) BRYON IS NON FORMULARY...PLEASE CONSIDER AN OR... Q8H XX ; Start 01/18/17 at 17:00 DAFNE GARCIA Jan 19, 2017 11:04
[2017-01-19 13:00] LABS: HEPATITIS B CORE ANTIBODY REACTIVE (NEGATIVE)
[2017-01-19 13:20] LABS: COMPLEMENT C3 104 mg/dl (88-165); COMPLEMENT C4 31 mg/dl (14-44)
--- NOTE | 2017-01-19 16:34 | CONS ---
Date/Time of Note Date/Time of Note DATE: 01/19/17 TIME: 16:33 Consult Date/Type/Reason Admit Date/Time Jan 17, 2017 at 12:29 Initial Consult Date Subjective On HD. No events. Objective Vital Signs Date Time Temp Pulse Resp B/P Pulse Ox O2 Delivery O2 Flow Rate FiO2 01/19/17 16:08 86 01/19/17 15:54 98.3 18 126/63 91 01/19/17 13:28 Nasal Cannula 2.0 Intake and Output 01/18/17 01/18/17 01/19/17 15:00 23:00 07:00 Intake Total 1300 ml 675 ml Output Total 3600 ml Balance -2300 ml 675 ml Exam HEENT: Large neck. Crowded oropharynx. Elevated jugular venous pressures. CARDIOVASCULAR: Regular rate and rhythm, distant S1 and S2. CHEST: Fine coarse bibasilar crackles. ABDOMEN: Obese, nontender, no hepatosplenomegaly. EXTREMITIES: There is extensive lower extremity edema bilaterally. No cyanosis or clubbing. Results/Medications Result Diagram: 01/19/17 0540 01/19/17 0540 Results 24 hrs Laboratory Tests Test 01/18/17 20:33 01/19/17 05:40 01/19/17 08:02 01/19/17 09:05 Bedside Glucose 114 102 White Blood Count 6.2 # Red Blood Count 3.73 L Hemoglobin 10.6 L Hematocrit 33.8 L Mean Corpuscular Volume 90.6 Mean Corpuscular Hemoglobin 28.4 L Mean Corpuscular Hemoglobin Concent 31.4 L Red Cell Distribution Width 12.9 Platelet Count 202 Mean Platelet Volume 10.9 H Neutrophils % 76.1 Lymphocytes % 12.4 L Monocytes % 9.0 Eosinophils % 1.6 Basophils % 0.3 Nucleated Red Blood Cells % 0.0 Neutrophils # 4.7 Lymphocytes # 0.8 Monocytes # 0.6 Eosinophils # 0.1 Basophils # 0.0 Nucleated Red Blood Cells # 0.0 Sodium Level 136 Potassium Level 4.6 Chloride Level 93 L Carbon Dioxide Level 27 Anion Gap 21 H Blood Urea Nitrogen 71 H Creatinine 8.84 H Glucose Level 119 # Calcium Level 7.7 L Complement C3 104 Complement C4 31 Hepatitis B Surface Antigen NEGATIVE Hepatitis B Core Total Antibody REACTIVE H Hepatitis C Antibody NEGATIVE Test 01/19/17 11:15 Bedside Glucose 229 H Medications Current Medications Albuterol (Ventolin Hfa) 2 puff Q4 INH Last administered on 01/19/17 09:47; Admin Dose 2 PUFF; Start 01/17/17 at 17:00 Amlodipine Besylate (Norvasc) 10 mg DAILY PO Last administered on 01/18/17 09: 20; Admin Dose 10 MG; Start 01/18/17 at 09:00; Status Future Hold Aspirin (Aspirin) 81 mg DAILY PO Last administered on 01/19/17 09:48; Admin Dose 81 MG; Start 01/18/17 at 09:00 Carvedilol (Coreg) 3.125 mg BID PO Last administered on 01/19/17 09:48; Admin Dose 3.125 MG; Start 01/17/17 at 21:00 EZETIMIBE (Zetia) 10 mg DAILY PO Last administered on 01/19/17 09:48; Admin Dose 10 MG; Start 01/18/17 at 09:00 Gabapentin (Neurontin) 300 mg BID PO Last administered on 01/19/17 09:48; Admin Dose 300 MG; Start 01/17/17 at 21:00 Loratadine (Claritin) 10 mg DAILY PO Last administered on 01/19/17 09:48; Admin Dose 10 MG; Start 01/18/17 at 09:00 Montelukast Sodium (Singulair) 10 mg QHS PO Last administered on 01/18/17 20:24 ; Admin Dose 10 MG; Start 01/17/17 at 21:00 Nitroglycerin (Nitroglycerin (Sl Tab) 0.4 Mg) 1 tab Q5M PRN SL ANGINA; Start at 15:00 Pramipexole (Mirapex) 0.5 mg HS PO Last administered on 01/18/17 20:24; Admin Dose 0.5 MG; Start 01/17/17 at 21:00 Tramadol HCl (Ultram) 50 mg BID PRN PO PAIN Last administered on 01/18/17 20:23 ; Admin Dose 50 MG; Start 01/17/17 at 15:00 Miscellaneous Information 145 mcg DAILY PO ; Start 01/18/17 at 09:00; Status UNV Diagnostic Test (Pha) (Accu-Chek) XX Last administered on 01/18/17 02: 54; Admin Dose 1 EA; Start 01/18/17 at 02:00 Atorvastatin Calcium (Lipitor) 20 mg DAILY@21 PO Last administered on 01/18/17 20:23; Admin Dose 20 MG; Start 01/17/17 at 21:00 Miscellaneous Information 1 ea NOTE XX ; Start 01/17/17 at 16:30 Glucose (Glutose) 15 gm Q15M PRN PO DECREASED GLUCOSE; Start 01/17/17 at 16:30 Glucose (Glutose) 22.5 gm Q15M PRN PO DECREASED GLUCOSE; Start 01/17/17 at 16: 30 Dextrose (D50w Syringe) 25 ml Q15M PRN IV DECREASED GLUCOSE Last administered on 01/18/17 06:06; Admin Dose 25 ML; Start 01/17/17 at 16:30 Dextrose (D50w Syringe) 50 ml Q15M PRN IV DECREASED GLUCOSE Last administered on 01/18/17 11:11; Admin Dose 50 ML; Start 01/17/17 at 16:30 Glucagon (Glucagen) 1 mg Q15M PRN IM DECREASED GLUCOSE; Start 01/17/17 at 16:30 Glucose 15 gm 15 gm Q15M PRN BUCCAL DECREASED GLUCOSE; Start 01/17/17 at 16:30 Ondansetron HCl/ Dextrose (Zofran Inj/D5W) 54 ml @ 108 mls/hr Q6H PRN IV NAUSEA AND/OR VOMITING Last administered on 01/18/17 01:13; Admin Dose 108 MLS/ HR; Start 01/17/17 at 23:30 Miscellaneous Information (*Order Clarification Bulletin) TAMARAS IS NON FORMULARY...PLEASE CONSIDER AN OR... Q8H XX ; Start 01/18/17 at 17:00 Assessment/Plan Additional Assessment/Plan HEENT: Large neck. Crowded oropharynx. Elevated jugular venous pressures. CARDIOVASCULAR: Regular rate and rhythm, distant S1 and S2. CHEST: Fine coarse bibasilar crackles. ABDOMEN: Obese, nontender, no hepatosplenomegaly. EXTREMITIES: There is extensive lower extremity edema bilaterally. No cyanosis or clubbing. LABORATORY DATA: WBC is 8.3, hemoglobin is 11.2, platelets are 250, BUN is 95 and creatinine is 9.6. Chest x-ray shows evidence of pulmonary venous congestion. IMPRESSION: 1. Shortness of breath and mild hypoxemia, likely secondary to volume overload due to the patient's renal failure as well as a component of congestive heart failure exacerbation. 2. Renal failure requiring hemodialysis. 3. Hypertensive heart disease. 4. Morbid obesity. 5. Hyperlipidemia. 6. Hypothyroidism. RECOMMENDATIONS: 1. HD and ultrafiltration. 2. Am CXR 3. We will obtain a chest x-ray in 1 to 2 days after undergoing hemodialysis and ultrafiltration. 4. DVT prophylaxis NYLA COLEY MD Jan 19, 2017 16:34
[2017-01-19] MEDS: ATORVASTATIN 20 MG TAB PO SCH (21:59)
[2017-01-19] MEDS: PRAMIPEXOLE 0.25 MG TAB PO SCH (21:59)
[2017-01-19] MEDS: MONTELUKAST 10 MG TAB PO SCH (21:59)
[2017-01-19] MEDS: ALBUTEROL HFA 8 GM INHALER INH SCH (22:02)
[2017-01-20] VITALS (11 sets, daily range): BP systolic 100–108; BP diastolic 55–68; PULSE 67–87; RESP 16–20
[2017-01-20] MEDS: ZOLPIDEM 5 MG TAB PO PRN ×2 (00:34→22:02)
[2017-01-20] MEDS: ALBUTEROL HFA 8 GM INHALER INH SCH ×5 (01:00→17:31)
[2017-01-20] MEDS: [UNRECOGNIZED DRUG - REMARK] XX SCH ×3 (01:00→17:27)
[2017-01-20] MEDS: ACCU-CHEK XX SCH (02:15)
[2017-01-20] MEDS: traMADol 50 MG TAB PO PRN ×2 (06:44→22:02)
[2017-01-20 07:09] LABS: ADD SCAN DIFF NO
[2017-01-20 07:13] LABS: BASOPHILS % 0.5 % (0.0-2.0); EOSINOPHILS # 0.3 10^3/ul (0.0-0.5); EOSINOPHILS % 4.3 % (0.0-7.0); HEMATOCRIT 31.4 % (37.0-47.0); HEMOGLOBIN 10.3 g/dl (12.0-16.0); LYMPHOCYTES # 1.2 10^3/ul (0.8-2.9); LYMPHOCYTES % 18.5 % (15.0-51.0); MEAN CORPUSCULAR HEMOGLOBIN 29.3 pg (29.0-33.0); MEAN CORPUSCULAR HGB CONC 32.8 g/dl (32.0-37.0); MEAN CORPUSCULAR VOLUME 89.2 fl (82.0-101.0); MEAN PLATELET VOLUME 10.8 fl (7.4-10.4); MONOCYTE # 0.7 10^3/ul (0.3-0.9); MONOCYTES % 11.1 % (0.0-11.0); NEUTROPHIL # 4.1 10^3/ul (1.6-7.5); PLATELET COUNT 174 10^3/UL (140-415); RED BLOOD COUNT 3.52 10^6/ul (4.20-5.40); RED CELL DISTRIBUTION WIDTH 12.6 % (11.5-14.5); WHITE BLOOD COUNT 6.3 10^3/ul (4.8-10.8)
[2017-01-20 07:38] LABS: POTASSIUM 4.3 mmol/L (3.5-5.1)
[2017-01-20 07:41] LABS: CREATININE 6.84 mg/dl (0.44-1.00)
[2017-01-20 07:42] LABS: CALCIUM 7.4 mg/dl (8.4-10.2)
[2017-01-20] MEDS: ALBUTEROL/IPRATROPIUM (NEB) 3 ML AMP HHN SCH ×4 (08:04→20:23)
[2017-01-20] MEDS: EZETIMIBE 10 MG TAB PO SCH (08:33)
[2017-01-20] MEDS: ASPIRIN 81 MG TAB PO SCH (08:34)
[2017-01-20] MEDS: GABAPENTIN 300 MG CAP PO SCH ×2 (08:34→20:36)
[2017-01-20] MEDS: LORATADINE 10 MG TAB PO SCH (08:34)
[2017-01-20] MEDS: LEVOTHYROXINE 112 MCG TAB PO SCH (08:34)
[2017-01-20] MEDS: INSULIN ASPART [NOVOLOG] 3 ML PEN SC SCH ×4 (08:38→20:43)
--- NOTE | 2017-01-20 09:54 | PN ---
DATE: 01/18/2017 SUBJECTIVE: The patient this morning is stable, but is having some mild confusion. Overnight, the patient has had minimal urinary output. The patient has had 3 bowel movements. Patient's renal fun ction, however, has not improved and the patient remains hyperkalemic. I spoke with the patient thi s morning through a pencil maker informing her that she is going to need to start urgent hemodialysis. The patient agrees. I have attempted to contact the family on multiple occasions. I have called the family's phone number - contact information in the chart. Two phone numbers were called: [phone], as well as [phone]. The family is not available. I am not able to even leave message s, as both phone number answering machines are full. I have spoken with vascular surgeon, . has agreed to put a Chano catheter once a consent has been obtained. We will attempt every 20 to 30 minutes to get in touch with family to obtain consent. OBJECTIVE: VITAL SIGNS: Blood pressure /53, respiration 18, pulse 80, temperature 98.1. HEENT: Head is normocephalic. NECK: Supple. HEART: Regular rate. LUNGS: Show diminished breath sounds at base. ABDOMEN: Soft, nontender to palpation. No rebound or guarding. EXTREMITIES: Negative for clubbing, cyanosis. No edema. DERMATOLOGIC: No rashes. MUSCULOSKELETAL: No joint effusions. NEUROLOGIC: No focal deficits. LABORATORY DATA: Sodium 132, potassium 6.5, chloride 93, BUN 95, creatinine 9.65. White count 8.3, hemoglobin , hematocrit 36.1, platelet count is 250. The patient's renal ultrasound shows empt y urinary bladder, normal kidneys, no hydronephrosis. ASSESSMENT AND PLAN: 1. Oligoanuric acute kidney injury on top of chronic kidney disease with unknown baseline creatinin e. Etiology of acute kidney injury is likely secondary to acute tubular necrosis due to multifactor ial causes including NSAID use, ARB effect, diuretic use, volume depletion. The patient has not hazel wn any significant improvement despite being on IV fluids. Given the patient's persistent hyperkale melony state and developing uremia, the patient will be initiated on hemodialysis. I have attempted to contact the family, as I stated above, to obtain consent and at this point, the family has not resp onded. Once consent is obtained, a Chano catheter will be placed by vascular surgeon, , and the patient will be dialyzed today. Will monitor closely. 2. Hyperkalemia: Etiology is secondary to acute kidney injury. The patient is status post Kayexal ate, calcium gluconate, IV insulin. The patient's potassium levels have decreased from 7.2 to 6.5 m Eq per liter. Plan is for urgent hemodialysis once consent is obtained and Chano catheter can be placed. We will dialyze the patient for 3 hours on a 2K bath. Will anticipate dialysis today and t omorrow for both solute clearance. In the interim, we will continue medical management. Will give another dose of Kayexalate, will give calcium gluconate and monitor closely. 3. Hyponatremia secondary to acute kidney injury: Continue to monitor. 4. Metabolic acidosis secondary to acute kidney injury: We will continue to monitor bicarbonate le jamie and will check an ABG. 5. Mineral bone disorder: Continue to monitor calcium and phosphorus levels. 6. Syncope secondary to hemodynamics: Continue to monitor. 7. History of congestive heart failure: The patient is currently on IV fluids. Does not appear vo lume overloaded. Will monitor closely. 8. Dyslipidemia: Continue statin therapy. 9. Hypothyroidism: Continue Synthroid. 10. Diabetes: Continue Accu-Cheks and insulin sliding scale. Dictated By: ELINA LAFLEUR/NTS Conf#: [id number] DID#: [id number]
--- NOTE | 2017-01-20 10:17 | PN ---
DATE: 01/20/2017 SUBJECTIVE: The patient had hemodialysis yesterday, tolerated well with 2.5 liters removed. No oth er acute events noted. No hemoptysis, hematemesis or hematochezia. OBJECTIVE: VITAL SIGNS: Blood pressure 100/59, respirations 20, pulse 62, temperature 98.2. HEENT: Head is normocephalic. NECK: Supple. HEART: Regular rate. LUNGS: Show diminished breath sounds at base. ABDOMEN: Soft, nontender to palpation. No rebound or guarding. EXTREMITIES: Negative for clubbing, cyanosis. Trace edema. DERMATOLOGIC: No rashes. MUSCULOSKELETAL: No joint effusions. NEUROLOGIC: No change in exam. MEDICATIONS: The patient's medications have been reviewed. LABORATORY DATA: Shows white count 6.3, hemoglobin 10.3, hematocrit 31.4, platelet count is 174. S odium 132, potassium 4.3, chloride 96, BUN 59, creatinine 6.84, calcium 7.4. Patient's complements are normal, rheumatoid factor is negative hepatitis B core antibody is positive, hepatitis B antigen is negative. Hep C antibody is negative. ASSESSMENT AND PLAN: 1. Oligoanuric acute kidney injury on top of chronic kidney disease with unknown baseline creatinin e. Etiology of acute kidney injury is felt to be secondary to acute tubular necrosis, most likely d ue to NSAID use, ARB effect, diuretics. The possibility of an acute glomerulonephritis is less like ly as the patient has a nonactive sediment and nonglomerular proteinuria. However, given the patien t's acute presentation, a full serological workup is ongoing. The patient's complements and rheumat oid factor are negative to date. An GOLDY, anti-double stranded DNA, and ANCA, SPEP, UPEP, immunofixa tion cryoglobulins are pending. Hepatitis panel was evaluated. Currently, at this point, the patie nt is dialysis dependent, has had 2 sessions of dialysis. Will plan for dialysis again today and th en monitor for signs of renal recovery. Please also note I am attempting to contact the patient's [facility] physician, , in order to determine what the patient's previous renal function and ba seline were. Will continue to monitor closely. 2. Hyperkalemia secondary to acute kidney injury, resolved. Continue dialysis a low potassium bath . 3. Hyponatremia secondary to acute kidney injury. Continue to minimize free water intake. Continu e dialysis on 140 sodium bath. 4. Metabolic acidosis secondary to acute kidney injury, resolved. 5. Mineral bone disorder. Continue to monitor calcium and phosphorus levels. The patient is clini jack improving. Continue ultrafiltration dialysis. 6. Dyslipidemia. Continue statin therapy. 7. Hypothyroidism. Continue Synthroid. 8. Diabetes. Continue Accu-Cheks, insulin sliding scale. 9. Status post syncope. Dictated By: ELINA LAFLEUR/AYDIN Conf#: [id number] DID#: [id number]
--- NOTE | 2017-01-20 12:31 | PN ---
DATE: 01/20/2017 TIME OF EVALUATION: 11:30 a.m. SUBJECTIVE DATA: Vital signs remains stable. OBJECTIVE DATA: VITAL SIGNS: Temperature 98.2, pulse rate 76, respiratory rate 20, blood pressure 100/50, oxygen saturation 97% on low flow O2. GENERAL: This is a morbidly obese female lying in bed in no apparent distress. HEENT: Head normocephalic and atraumatic. Eyes: Anicteric sclerae. Conjunctivae clear. ENT: Nasal septum is midline. Oral mucosa is dry. NECK: Short and obese. Unable to visualize any neck veins. CARDIAC: Regular rate and rhythm. No murmurs. ABDOMEN: Obese. Soft. Nontender. Bowel sounds hypoactive in all 4 quadrants. GENITOURINARY: Deferred. EXTREMITIES: No cyanosis, no clubbing. Trace bilateral lower extremity edema. Peripheral pulses palpable. NEUROLOGIC: The patient is awake, alert, and oriented. Cranial nerves are grossly intact. LABORATORY AND DIAGNOSTIC DATA: WBC 6.3, hemoglobin 10.3, hematocrit 31.4, platelet count 174. Sodium 132, potassium 4.3, chloride 96, carbon dioxide 25, anion gap 15, BUN 15, creatinine 6.84, glucose 151, calcium 7.4. ASSESSMENT AND PLAN: 1. Acute kidney injury requiring hemodialysis. Etiology could be acute tubular necrosis versus induced by drugs including ARB or NSAIDs. Continue hemodialysis as per nephrology. 2. Hyperkalemia secondary to acute kidney injury, currently resolved. 3. Type 2 diabetes mellitus. Hemoglobin A1c is 7.7. Continue sliding scale insulin along with Lantus insulin. Blood sugars fairly well controlled. 4. Pulmonary hypertension. PA pressure of 49 mmHg as per 2-D echocardiogram. Continue supplemental oxygen. 5. Dyslipidemia. Continue statins. 6. Acute respiratory failure. Hypoxic, most probably secondary to volume overload as well as a combination of diastolic heart failure. Continue inhaled bronchodilators. 7. Hypothyroidism. Continue Synthroid. 8. Morbid obesity. BMI of 46.0 kg/m sq. Weight reduction will be advised. 9. Fluid, electrolytes, and nutrition. Carbohydrate controlled renal diet. 10. Deep venous thrombosis prophylaxis. Bilateral sequential compression devices. 11. Gastrointestinal prophylaxis. H2 receptor blockers. 12. Plan. Continue hemodialysis as per nephrology. Await further recommendations from nephrology. Case discussed with Dr. Silva. ZOEY SILVA MD AM/AYDIN Conf#: [id number] DID#: [id number] [id number]
[2017-01-20] MEDS: FAMOTIDINE 20 MG TAB PO SCH (13:01)
--- NOTE | 2017-01-20 13:20 | CONS ---
Date/Time of Note Date/Time of Note DATE: 01/20/17 TIME: 13:18 Assessment/Plan Assessment/Plan Additional Assessment/Plan Assessment recommendations; next 1. Patient admitted with shortness of breath due to fluid overload, history chronic renal failure patient on hemodialysis. 2. Obesity. 3. Mild thrombocytopenia. 4. History of hypothyroidism. 5. Hypertension. Continue current treatment. Patient responding well to current treatment regimen. Consultation Date/Type/Reason Admit Date/Time Jan 17, 2017 at 12:29 Initial Consult Date Type of Consultation: Pulmonary 24 HR Interval Summary Free Text/Dictation Patient condition is improved. She denies any chest pain, fever, chills. Shortness of breath is improving. General exam; elderly woman, appears quite overweight comfortably sitting in a chair by bedside eating her lunch. Currently in no distress. Exam/Review of Systems Vital Signs Vitals Vital Signs Date Time Temp Pulse Resp B/P Pulse Ox O2 Delivery O2 Flow Rate FiO2 01/20/17 12:33 2.0 01/20/17 12:33 55 18 90 Nasal Cannula 21 01/20/17 11:37 98.3 108/67 Intake and Output 01/19/17 01/19/17 01/20/17 15:00 23:00 07:00 Intake Total 900 ml 450 ml Output Total 3600 ml Balance -2700 ml 450 ml Exam HEENT exam is; supple neck, positive JVD difficult to see because of short neck. No neck masses. No thyromegaly. No neck bruits. Pharynx is clear. Patient has bilateral cataracts. Chest exam; diminished but clear breath sounds. S1-S2 audible, no murmurs. Regular rhythm. Abdomen exam is; soft, protuberant. Nontender. Bowel sounds audible. Extremity exam; trace peripheral edema. Pulses 1+ bilaterally. No clubbing. [employer] REPRESENTATIVE examination; no focal deficit. Results Result Diagram: 01/20/17 0630 01/20/17 0630 Results 24 hrs Laboratory Tests Test 01/19/17 17:26 01/19/17 21:47 01/20/17 02:08 01/20/17 06:30 Bedside Glucose 186 281 H 197 White Blood Count 6.3 Red Blood Count 3.52 L Hemoglobin 10.3 L Hematocrit 31.4 L Mean Corpuscular Volume 89.2 Mean Corpuscular Hemoglobin 29.3 Mean Corpuscular Hemoglobin Concent 32.8 Red Cell Distribution Width 12.6 Platelet Count 174 Mean Platelet Volume 10.8 H Neutrophils % 65.0 Lymphocytes % 18.5 Monocytes % 11.1 H Eosinophils % 4.3 Basophils % 0.5 Nucleated Red Blood Cells % 0.0 Neutrophils # 4.1 Lymphocytes # 1.2 Monocytes # 0.7 Eosinophils # 0.3 Basophils # 0.0 Nucleated Red Blood Cells # 0.0 Sodium Level 132 L Potassium Level 4.3 Chloride Level 96 L Carbon Dioxide Level 25 Anion Gap 15 Blood Urea Nitrogen 59 H Creatinine 6.84 #H Glucose Level 151 Calcium Level 7.4 L Test 01/20/17 07:55 01/20/17 11:40 Bedside Glucose 163 201 Medications Medications Current Medications Amlodipine Besylate (Norvasc) 10 mg DAILY PO Last administered on 01/18/17 09: 20; Admin Dose 10 MG; Start 01/18/17 at 09:00; Status Future Hold Aspirin (Aspirin) 81 mg DAILY PO Last administered on 01/20/17 08:34; Admin Dose 81 MG; Start 01/18/17 at 09:00 Carvedilol (Coreg) 3.125 mg BID PO Last administered on 01/20/17 08:35; Admin Dose 3.125 MG; Start 01/17/17 at 21:00 EZETIMIBE (Zetia) 10 mg DAILY PO Last administered on 01/20/17 08:33; Admin Dose 10 MG; Start 01/18/17 at 09:00 Gabapentin (Neurontin) 300 mg BID PO Last administered on 01/20/17 08:34; Admin Dose 300 MG; Start 01/17/17 at 21:00 Loratadine (Claritin) 10 mg DAILY PO Last administered on 01/20/17 08:34; Admin Dose 10 MG; Start 01/18/17 at 09:00 Montelukast Sodium (Singulair) 10 mg QHS PO Last administered on 01/19/17 21:59 ; Admin Dose 10 MG; Start 01/17/17 at 21:00 Nitroglycerin (Nitroglycerin (Sl Tab) 0.4 Mg) 1 tab Q5M PRN SL ANGINA; Start at 15:00 Pramipexole (Mirapex) 0.5 mg HS PO Last administered on 01/19/17 21:59; Admin Dose 0.5 MG; Start 01/17/17 at 21:00 Tramadol HCl (Ultram) 50 mg BID PRN PO PAIN Last administered on 01/20/17 06:44 ; Admin Dose 50 MG; Start 01/17/17 at 15:00 Miscellaneous Information 145 mcg DAILY PO ; Start 01/18/17 at 09:00; Status UNV Diagnostic Test (Pha) (Accu-Chek) 1 ea 02 XX Last administered on 01/20/17 02: 15; Admin Dose 1 EA; Start 01/18/17 at 02:00 Atorvastatin Calcium (Lipitor) 20 mg DAILY@21 PO Last administered on 01/19/17 21:59; Admin Dose 20 MG; Start 01/17/17 at 21:00 Miscellaneous Information 1 ea NOTE XX ; Start 01/17/17 at 16:30 Glucose (Glutose) 15 gm Q15M PRN PO DECREASED GLUCOSE; Start 01/17/17 at 16:30 Glucose (Glutose) 22.5 gm Q15M PRN PO DECREASED GLUCOSE; Start 01/17/17 at 16: 30 Dextrose (D50w Syringe) 25 ml Q15M PRN IV DECREASED GLUCOSE Last administered on 01/18/17 06:06; Admin Dose 25 ML; Start 01/17/17 at 16:30 Dextrose (D50w Syringe) 50 ml Q15M PRN IV DECREASED GLUCOSE Last administered on 01/18/17 11:11; Admin Dose 50 ML; Start 01/17/17 at 16:30 Glucagon (Glucagen) 1 mg Q15M PRN IM DECREASED GLUCOSE; Start 01/17/17 at 16:30 Glucose 15 gm 15 gm Q15M PRN BUCCAL DECREASED GLUCOSE; Start 01/17/17 at 16:30 Ondansetron HCl/ Dextrose (Zofran Inj/D5W) 54 ml @ 108 mls/hr Q6H PRN IV NAUSEA AND/OR VOMITING Last administered on 01/18/17 01:13; Admin Dose 108 MLS/ HR; Start 01/17/17 at 23:30 Miscellaneous Information (*Order Clarification Bulletin) LINZESS IS NON FORMULARY...PLEASE CONSIDER AN OR... Q8H XX Last administered on 01/20/17 08:35 ; Admin Dose 1 EA; Start 01/18/17 at 17:00 Famotidine (Pepcid) 20 mg DAILY PO Last administered on 01/20/17 13:01; Admin Dose 20 MG; Start 01/20/17 at 12:30 BRANDY HERNÁNDEZ Jan 20, 2017 13:20
[2017-01-20 17:11] LABS: MICROALBUMIN 44.1 mg/dL
[2017-01-20] MEDS: ATORVASTATIN 20 MG TAB PO SCH (20:37)
[2017-01-20] MEDS: PRAMIPEXOLE 0.25 MG TAB PO SCH (20:37)
[2017-01-20] MEDS: MONTELUKAST 10 MG TAB PO SCH (20:37)
[2017-01-21] VITALS (13 sets, daily range): BP systolic 108–142; BP diastolic 52–67; PULSE 75–108; RESP 18–24
[2017-01-21] MEDS: ALBUTEROL HFA 8 GM INHALER INH SCH ×7 (00:45→21:50)
[2017-01-21] MEDS: [UNRECOGNIZED DRUG - REMARK] XX SCH (00:46)
[2017-01-21] MEDS: ACCU-CHEK XX SCH (01:09)
[2017-01-21] MEDS: ALBUTEROL/IPRATROPIUM (NEB) 3 ML AMP HHN SCH ×4 (08:25→21:28)
[2017-01-21 08:44] LABS: ADD SCAN DIFF NO
[2017-01-21 08:48] LABS: BASOPHILS % 0.4 % (0.0-2.0); EOSINOPHILS # 0.4 10^3/ul (0.0-0.5); EOSINOPHILS % 4.4 % (0.0-7.0); HEMATOCRIT 34.6 % (37.0-47.0); HEMOGLOBIN 10.8 g/dl (12.0-16.0); LYMPHOCYTES # 1.5 10^3/ul (0.8-2.9); LYMPHOCYTES % 16.2 % (15.0-51.0); MEAN CORPUSCULAR HEMOGLOBIN 28.1 pg (29.0-33.0); MEAN CORPUSCULAR HGB CONC 31.2 g/dl (32.0-37.0); MEAN CORPUSCULAR VOLUME 90.1 fl (82.0-101.0); MEAN PLATELET VOLUME 10.9 fl (7.4-10.4); MONOCYTE # 0.9 10^3/ul (0.3-0.9); NEUTROPHIL # 6.5 10^3/ul (1.6-7.5); NEUTROPHILS % 69.4 % (39.0-77.0); PLATELET COUNT 213 10^3/UL (140-415); RED BLOOD COUNT 3.84 10^6/ul (4.20-5.40); RED CELL DISTRIBUTION WIDTH 12.7 % (11.5-14.5); WHITE BLOOD COUNT 9.4 10^3/ul (4.8-10.8)
[2017-01-21] MEDS: ASPIRIN 81 MG TAB PO SCH (08:51)
[2017-01-21] MEDS: LORATADINE 10 MG TAB PO SCH (08:51)
[2017-01-21] MEDS: GABAPENTIN 300 MG CAP PO SCH ×2 (08:51→21:51)
[2017-01-21] MEDS: FAMOTIDINE 20 MG TAB PO SCH (08:51)
[2017-01-21] MEDS: LEVOTHYROXINE 112 MCG TAB PO SCH (08:51)
[2017-01-21] MEDS: INSULIN ASPART [NOVOLOG] 3 ML PEN SC SCH ×4 (08:58→23:27)
[2017-01-21] MEDS: EZETIMIBE 10 MG TAB PO SCH (09:00)
--- NOTE | 2017-01-21 09:03 | PN ---
Date/Time of Note Date/Time of Note DATE: 01/21/17 TIME: 09:01 Assessment/Plan VTE Prophylaxis VTE Prophylaxis Intervention: SCD's Lines/Catheters IV C[facility]ter Type (from [facility]): HD CATH Urinary Cath still in place: No Assessment/Plan Chief Complaint/Hosp Course 1. Acute kidney injury requiring hemodialysis. Etiology could be acute tubular necrosis versus induced by drugs including ARB or NSAIDs. Continue hemodialysis as per nephrology. 2. Hyperkalemia secondary to acute kidney injury, currently resolved. 3. Type 2 diabetes mellitus. Hemoglobin A1c is 7.7. Continue sliding scale insulin along with Lantus insulin. Blood sugars fairly well controlled. 4. Pulmonary hypertension. PA pressure of 49 mmHg as per 2-D echocardiogram. Continue supplemental oxygen. 5. Dyslipidemia. Continue statins. 6. Acute respiratory failure. Hypoxic, most probably secondary to volume overload as well as a combination of diastolic heart failure. Continue inhaled bronchodilators. Pulmonary following. 7. Hypothyroidism. Continue Synthroid. 8. Morbid obesity. BMI of 46.0 kg/m sq. Weight reduction will be advised. 9. Fluid, electrolytes, and nutrition. Carbohydrate controlled renal diet. 10. Deep venous thrombosis prophylaxis. Bilateral sequential compression devices. 11. Gastrointestinal prophylaxis. H2 receptor blockers. 12. Plan. Continue hemodialysis as per nephrology. Await further recommendations from nephrology. Case discussed with Dr. Torres. Problems: Subjective 24 Hr Interval Summary Free Text/Dictation Eating breakfast. Denies any chest pain. Exam/Review of Systems Vital Signs Vitals Vital Signs Date Time Temp Pulse Resp B/P Pulse Ox O2 Delivery O2 Flow Rate FiO2 01/21/17 08:25 68 18 96 Nasal Cannula 3.0 01/21/17 04:17 96.5 113/61 01/20/17 20:28 28 Intake and Output 01/20/17 01/20/17 01/21/17 15:00 23:00 07:00 Intake Total 900 ml 120 ml Balance 900 ml 120 ml Exam GENERAL: This is a morbidly obese female lying in bed in no apparent distress. HEENT: Head normocephalic and atraumatic. Eyes: Anicteric sclerae. Conjunctivae clear. ENT: Nasal septum is midline. Oral mucosa is dry. NECK: Short and obese. Unable to visualize any neck veins. CARDIAC: Regular rate and rhythm. No murmurs. RESPIRATORY: Diminished breath sounds bilaterally with bilateral rales and occasional wheezing. ABDOMEN: Obese. Soft. Nontender. Bowel sounds hypoactive in all 4 quadrants. GENITOURINARY: Deferred. EXTREMITIES: No cyanosis, no clubbing. B/L LE edema. Peripheral pulses palpable. NEUROLOGIC: The patient is awake, alert, and oriented. Cranial nerves are grossly intact. Results Result Diagram: 01/21/17 0744 01/20/17 0630 Results 24 hrs Laboratory Tests Test 01/20/17 11:40 01/20/17 17:30 01/20/17 20:34 01/21/17 01:08 Bedside Glucose 201 269 H 207 198 Test 01/21/17 07:44 01/21/17 08:38 White Blood Count 9.4 # Red Blood Count 3.84 L Hemoglobin 10.8 L Hematocrit 34.6 L Mean Corpuscular Volume 90.1 Mean Corpuscular Hemoglobin 28.1 L Mean Corpuscular Hemoglobin Concent 31.2 L Red Cell Distribution Width 12.7 Platelet Count 213 # Mean Platelet Volume 10.9 H Neutrophils % 69.4 Lymphocytes % 16.2 Monocytes % 9.0 Eosinophils % 4.4 Basophils % 0.4 Nucleated Red Blood Cells % 0.0 Neutrophils # 6.5 Lymphocytes # 1.5 Monocytes # 0.9 Eosinophils # 0.4 Basophils # 0.0 Nucleated Red Blood Cells # 0.0 Bedside Glucose 147 Medications Medications Current Medications Amlodipine Besylate (Norvasc) 10 mg DAILY PO Last administered on 01/18/17 09: 20; Admin Dose 10 MG; Start 01/18/17 at 09:00; Status Future Hold Aspirin (Aspirin) 81 mg DAILY PO Last administered on 01/20/17 08:34; Admin Dose 81 MG; Start 01/18/17 at 09:00 Carvedilol (Coreg) 3.125 mg BID PO Last administered on 01/20/17 20:37; Admin Dose 3.125 MG; Start 01/17/17 at 21:00 EZETIMIBE (Zetia) 10 mg DAILY PO Last administered on 01/20/17 08:33; Admin Dose 10 MG; Start 01/18/17 at 09:00 Gabapentin (Neurontin) 300 mg BID PO Last administered on 01/20/17 20:36; Admin Dose 300 MG; Start 01/17/17 at 21:00 Loratadine (Claritin) 10 mg DAILY PO Last administered on 01/20/17 08:34; Admin Dose 10 MG; Start 01/18/17 at 09:00 Montelukast Sodium (Singulair) 10 mg QHS PO Last administered on 01/20/17 20:37 ; Admin Dose 10 MG; Start 01/17/17 at 21:00 Nitroglycerin (Nitroglycerin (Sl Tab) 0.4 Mg) 1 tab Q5M PRN SL ANGINA; Start at 15:00 Pramipexole (Mirapex) 0.5 mg HS PO Last administered on 01/20/17 20:37; Admin Dose 0.5 MG; Start 01/17/17 at 21:00 Tramadol HCl (Ultram) 50 mg BID PRN PO PAIN Last administered on 01/20/17 22:02 ; Admin Dose 50 MG; Start 01/17/17 at 15:00 Miscellaneous Information 145 mcg DAILY PO ; Start 01/18/17 at 09:00; Status UNV Diagnostic Test (Pha) (Accu-Chek) 1 ea 02 XX Last administered on 01/21/17 01: 09; Admin Dose 1 EA; Start 01/18/17 at 02:00 Atorvastatin Calcium (Lipitor) 20 mg DAILY@21 PO Last administered on 01/20/17 20:37; Admin Dose 20 MG; Start 01/17/17 at 21:00 Miscellaneous Information 1 ea NOTE XX ; Start 01/17/17 at 16:30 Glucose (Glutose) 15 gm Q15M PRN PO DECREASED GLUCOSE; Start 01/17/17 at 16:30 Glucose (Glutose) 22.5 gm Q15M PRN PO DECREASED GLUCOSE; Start 01/17/17 at 16: 30 Dextrose (D50w Syringe) 25 ml Q15M PRN IV DECREASED GLUCOSE Last administered on 01/18/17 06:06; Admin Dose 25 ML; Start 01/17/17 at 16:30 Dextrose (D50w Syringe) 50 ml Q15M PRN IV DECREASED GLUCOSE Last administered on 01/18/17 11:11; Admin Dose 50 ML; Start 01/17/17 at 16:30 Glucagon (Glucagen) 1 mg Q15M PRN IM DECREASED GLUCOSE; Start 01/17/17 at 16:30 Glucose 15 gm 15 gm Q15M PRN BUCCAL DECREASED GLUCOSE; Start 01/17/17 at 16:30 Ondansetron HCl/ Dextrose (Zofran Inj/D5W) 54 ml @ 108 mls/hr Q6H PRN IV NAUSEA AND/OR VOMITING Last administered on 01/18/17 01:13; Admin Dose 108 MLS/ HR; Start 01/17/17 at 23:30 Miscellaneous Information (*Order Clarification Bulletin) LINZESS IS NON FORMULARY...PLEASE CONSIDER AN OR... Q8H XX Last administered on 01/20/17 17:27 ; Admin Dose 1 EA; Start 01/18/17 at 17:00 Famotidine (Pepcid) 20 mg DAILY PO Last administered on 01/20/17 13:01; Admin Dose 20 MG; Start 01/20/17 at 12:30 ZOEY PAINTING NP Jan 21, 2017 09:03
[2017-01-21 09:11] LABS: MAGNESIUM 1.6 mg/dl (1.7-2.5); POTASSIUM 4.4 mmol/L (3.5-5.1)
[2017-01-21 09:14] LABS: CREATININE 6.09 mg/dl (0.44-1.00)
--- NOTE | 2017-01-21 09:51 | PN ---
DATE: 01/21/2017 SUBJECTIVE: The patient is stable, had hemodialysis yesterday, tolerated it well with 2.5 liters re moved. No other events noted. No hemoptysis, hematemesis, or hematochezia. OBJECTIVE: VITAL SIGNS: Blood pressure is 132/61, respiration 24, pulse 108, temperature 97.6. HEENT: Head is normocephalic. NECK: Supple. HEART: Regular rate. LUNGS: Show diminished breath sounds at the base. ABDOMEN: Soft, nontender to palpation, no rebound or guarding. EXTREMITIES: Negative for clubbing, cyanosis. Trace edema. DERMATOLOGIC: No rashes. MUSCULOSKELETAL: No joint effusions. NEUROLOGIC: No change in exam. MEDICATIONS: The patient's medications have been reviewed. LABORATORY DATA: Shows white count 9.4, hemoglobin 10.8, hematocrit 34.7, platelet count 213. The patient's serological workup has been reviewed, negative to date. ASSESSMENT AND PLAN: 1. Acute kidney injury on top of chronic kidney disease with unknown baseline creatinine. Etiology of acute kidney injury is felt to be secondary to acute tubular necrosis. The possibility of acute glomerulonephritis is less likely as the patient had nonactive sediment and non-glomerular proteinu neptali. However, given the patient's acute presentation a full serologic workup is ongoing. The patie nt's complement rheumatoid factors are negative to date. Other serological workup including an GOLDY, anti-double stranded DNA, and past acute therapy and fixation cryoglobulins are pending. I have al so attempted to contact the patient's primary care physician in order to obtain patient's baseline r enal function. Currently, the patient is dialysis dependent, the third session of dialysis today. Will then hold and see if there is any evidence of recovery. Otherwise, continue supportive care, r enally dose all meds, avoid nephrotoxins. 2. Hyperkalemia, improved. Continue low-potassium diet. 3. Hyponatremia secondary acute kidney injury. Continue to minimize free water intake, will dialyz e on a 140 sodium bath. 4. Metabolic acidosis secondary to acute kidney injury, resolved. 5. Mineral bone disorder. Continue to monitor calcium and phosphorus levels. 6. Dyslipidemia. Continue statin therapy. 7. Hypothyroidism. Continue Synthroid. 8. Diabetes, continue Accu-Cheks and insulin sliding scale. 9. Status post syncope. Dictated By: ELINA HARVEY DO NR/AYDIN Conf#: [id number] DID#: [id number]
[2017-01-21 12:11] LABS: CREATININE, RANDOM URINE 66 mg/dL (20-320); PROTEIN/CREATININE RATIO 985 mg/g creat (21-161)
[2017-01-21 13:26] LABS: ANA SCREEN NEGATIVE (NEGATIVE)
[2017-01-21 18:32] LABS: MYELOPEROXIDASE ANTIBODY <1.0 AI; PROTEINASE-3 ANTIBODY <1.0 AI
[2017-01-21] MEDS: ATORVASTATIN 20 MG TAB PO SCH (21:50)
[2017-01-21] MEDS: MONTELUKAST 10 MG TAB PO SCH (21:51)
[2017-01-21] MEDS: PRAMIPEXOLE 0.25 MG TAB PO SCH (23:19)
[2017-01-22 00:21] LABS: ALBUMIN 3.5 g/dL (3.8-4.8)
[2017-01-22] MEDS: ALBUTEROL HFA 8 GM INHALER INH SCH ×6 (01:00→21:00)
[2017-01-22] MEDS: ACCU-CHEK XX SCH (02:00)
[2017-01-22 05:11] LABS: ADD SCAN DIFF NO
[2017-01-22 05:21] LABS: BASOPHILS % 0.3 % (0.0-2.0); EOSINOPHILS # 0.3 10^3/ul (0.0-0.5); EOSINOPHILS % 3.1 % (0.0-7.0); HEMATOCRIT 32.9 % (37.0-47.0); HEMOGLOBIN 10.7 g/dl (12.0-16.0); LYMPHOCYTES # 1.4 10^3/ul (0.8-2.9); LYMPHOCYTES % 14.7 % (15.0-51.0); MEAN CORPUSCULAR HGB CONC 32.5 g/dl (32.0-37.0); MEAN CORPUSCULAR VOLUME 89.2 fl (82.0-101.0); MEAN PLATELET VOLUME 10.8 fl (7.4-10.4); MONOCYTE # 0.9 10^3/ul (0.3-0.9); MONOCYTES % 9.4 % (0.0-11.0); NEUTROPHILS % 71.7 % (39.0-77.0); PLATELET COUNT 187 10^3/UL (140-415); RED BLOOD COUNT 3.69 10^6/ul (4.20-5.40); RED CELL DISTRIBUTION WIDTH 12.4 % (11.5-14.5); WHITE BLOOD COUNT 9.7 10^3/ul (4.8-10.8)
[2017-01-22 05:36] LABS: POTASSIUM 4.5 mmol/L (3.5-5.1)
[2017-01-22 05:39] LABS: CREATININE 4.18 mg/dl (0.44-1.00)
[2017-01-22 05:40] LABS: CALCIUM 8.3 mg/dl (8.4-10.2)
[2017-01-22 05:42] LABS: MAGNESIUM 1.6 mg/dl (1.7-2.5); PHOSPHORUS 4.8 mg/dl (2.5-4.9)
[2017-01-22] MEDS: LEVOTHYROXINE 112 MCG TAB PO SCH (06:26)
[2017-01-22 07:00] VITALS: BP 117/58; RESP 18
--- NOTE | 2017-01-22 07:15 | PN ---
Date/Time of Note Date/Time of Note DATE: 01/22/17 TIME: 07:14 Assessment/Plan VTE Prophylaxis VTE Prophylaxis Intervention: SCD's Lines/Catheters [facility] DIALYSIS CATH Urinary Cath still in place: No Assessment/Plan Chief Complaint/Hosp Course 1. Acute kidney injury requiring hemodialysis. Etiology could be acute tubular necrosis versus induced by drugs including ARB or NSAIDs. Continue hemodialysis as per nephrology. 2. Hyperkalemia secondary to acute kidney injury, currently resolved. 3. Type 2 diabetes mellitus. Hemoglobin A1c is 7.7. Continue sliding scale insulin along with Lantus insulin. Blood sugars fairly well controlled. 4. Pulmonary hypertension. PA pressure of 49 mmHg as per 2-D echocardiogram. Continue supplemental oxygen. 5. Dyslipidemia. Continue statins. 6. Acute respiratory failure. Hypoxic, most probably secondary to volume overload as well as a combination of diastolic heart failure. Continue inhaled bronchodilators. Pulmonary following. 7. Hypothyroidism. Continue Synthroid. 8. Morbid obesity. BMI of 46.0 kg/m sq. Weight reduction will be advised. 9. Fluid, electrolytes, and nutrition. Carbohydrate controlled renal diet. 10. Deep venous thrombosis prophylaxis. Bilateral sequential compression devices. 11. Gastrointestinal prophylaxis. H2 receptor blockers. 12. Plan. Continue hemodialysis as per nephrology. Await further recommendations from nephrology. Case discussed with Dr. Torres. Problems: Subjective 24 Hr Interval Summary Free Text/Dictation Vital signs stable. Exam/Review of Systems Vital Signs Vitals Vital Signs Date Time Temp Pulse Resp B/P Pulse Ox O2 Delivery O2 Flow Rate FiO2 01/21/17 21:30 98 22 97 Nasal Cannula 3.0 01/21/17 19:52 98.6 118/56 01/20/17 20:28 28 Intake and Output 01/21/17 01/21/17 01/22/17 15:00 23:00 07:00 Intake Total 1400 ml 420 ml Output Total 4500 ml 550 ml Balance -3100 ml -130 ml Exam GENERAL: This is a morbidly obese female lying in bed in no apparent distress. HEENT: Head normocephalic and atraumatic. Eyes: Anicteric sclerae. Conjunctivae clear. ENT: Nasal septum is midline. Oral mucosa is dry. NECK: Short and obese. Unable to visualize any neck veins. CARDIAC: Regular rate and rhythm. No murmurs. RESPIRATORY: Diminished breath sounds bilaterally with bilateral rales and occasional wheezing. ABDOMEN: Obese. Soft. Nontender. Bowel sounds hypoactive in all 4 quadrants. GENITOURINARY: Deferred. EXTREMITIES: No cyanosis, no clubbing. B/L LE edema. Peripheral pulses palpable. NEUROLOGIC: The patient is awake, alert, and oriented. Cranial nerves are grossly intact. Results Result Diagram: 01/22/17 0435 01/22/17 0435 Results 24 hrs Laboratory Tests Test 01/21/17 07:44 01/21/17 08:38 01/21/17 11:57 01/21/17 17:49 White Blood Count 9.4 # Red Blood Count 3.84 L Hemoglobin 10.8 L Hematocrit 34.6 L Mean Corpuscular Volume 90.1 Mean Corpuscular Hemoglobin 28.1 L Mean Corpuscular Hemoglobin Concent 31.2 L Red Cell Distribution Width 12.7 Platelet Count 213 # Mean Platelet Volume 10.9 H Neutrophils % 69.4 Lymphocytes % 16.2 Monocytes % 9.0 Eosinophils % 4.4 Basophils % 0.4 Nucleated Red Blood Cells % 0.0 Neutrophils # 6.5 Lymphocytes # 1.5 Monocytes # 0.9 Eosinophils # 0.4 Basophils # 0.0 Nucleated Red Blood Cells # 0.0 Sodium Level 135 Potassium Level 4.4 Chloride Level 98 Carbon Dioxide Level 26 Anion Gap 15 Blood Urea Nitrogen 67 H Creatinine 6.09 H Glucose Level 157 Calcium Level 8.0 L Phosphorus Level 7.0 H Magnesium Level 1.6 L Bedside Glucose 147 274 H 136 Test 01/21/17 21:43 01/21/17 23:23 01/22/17 02:22 01/22/17 04:35 Bedside Glucose 311 H 323 H 212 White Blood Count 9.7 Red Blood Count 3.69 L Hemoglobin 10.7 L Hematocrit 32.9 L Mean Corpuscular Volume 89.2 Mean Corpuscular Hemoglobin 29.0 Mean Corpuscular Hemoglobin Concent 32.5 Red Cell Distribution Width 12.4 Platelet Count 187 Mean Platelet Volume 10.8 H Neutrophils % 71.7 Lymphocytes % 14.7 L Monocytes % 9.4 Eosinophils % 3.1 Basophils % 0.3 Nucleated Red Blood Cells % 0.0 Neutrophils # 7.0 Lymphocytes # 1.4 Monocytes # 0.9 Eosinophils # 0.3 Basophils # 0.0 Nucleated Red Blood Cells # 0.0 Sodium Level 135 Potassium Level 4.5 Chloride Level 101 Carbon Dioxide Level 26 Anion Gap 13 Blood Urea Nitrogen 50 H Creatinine 4.18 #H Glucose Level 184 Calcium Level 8.3 L Phosphorus Level 4.8 # Magnesium Level 1.6 L Medications Medications Current Medications Amlodipine Besylate (Norvasc) 10 mg DAILY PO Last administered on 01/18/17 09: 20; Admin Dose 10 MG; Start 01/18/17 at 09:00; Status Future Hold Aspirin (Aspirin) 81 mg DAILY PO Last administered on 01/21/17 08:51; Admin Dose 81 MG; Start 01/18/17 at 09:00 Carvedilol (Coreg) 3.125 mg BID PO Last administered on 01/21/17 21:51; Admin Dose 3.125 MG; Start 01/17/17 at 21:00 EZETIMIBE (Zetia) 10 mg DAILY PO Last administered on 01/20/17 08:33; Admin Dose 10 MG; Start 01/18/17 at 09:00 Gabapentin (Neurontin) 300 mg BID PO Last administered on 01/21/17 21:51; Admin Dose 300 MG; Start 01/17/17 at 21:00 Loratadine (Claritin) 10 mg DAILY PO Last administered on 01/21/17 08:51; Admin Dose 10 MG; Start 01/18/17 at 09:00 Montelukast Sodium (Singulair) 10 mg QHS PO Last administered on 01/21/17 21:51 ; Admin Dose 10 MG; Start 01/17/17 at 21:00 Nitroglycerin (Nitroglycerin (Sl Tab) 0.4 Mg) 1 tab Q5M PRN SL ANGINA; Start at 15:00 Pramipexole (Mirapex) 0.5 mg HS PO Last administered on 01/21/17 23:19; Admin Dose 0.5 MG; Start 01/17/17 at 21:00 Tramadol HCl (Ultram) 50 mg BID PRN PO PAIN Last administered on 01/20/17 22:02 ; Admin Dose 50 MG; Start 01/17/17 at 15:00 Diagnostic Test (Pha) (Accu-Chek) 1 ea 02 XX Last administered on 01/22/17 02: 00; Admin Dose 1 EA; Start 01/18/17 at 02:00 Atorvastatin Calcium (Lipitor) 20 mg DAILY@21 PO Last administered on 01/21/17 21:50; Admin Dose 20 MG; Start 01/17/17 at 21:00 Miscellaneous Information 1 ea NOTE XX ; Start 01/17/17 at 16:30 Glucose (Glutose) 15 gm Q15M PRN PO DECREASED GLUCOSE; Start 01/17/17 at 16:30 Glucose (Glutose) 22.5 gm Q15M PRN PO DECREASED GLUCOSE; Start 01/17/17 at 16: 30 Dextrose (D50w Syringe) 25 ml Q15M PRN IV DECREASED GLUCOSE Last administered on 01/18/17 06:06; Admin Dose 25 ML; Start 01/17/17 at 16:30 Dextrose (D50w Syringe) 50 ml Q15M PRN IV DECREASED GLUCOSE Last administered on 01/18/17 11:11; Admin Dose 50 ML; Start 01/17/17 at 16:30 Glucagon (Glucagen) 1 mg Q15M PRN IM DECREASED GLUCOSE; Start 01/17/17 at 16:30 Glucose 15 gm 15 gm Q15M PRN BUCCAL DECREASED GLUCOSE; Start 01/17/17 at 16:30 Ondansetron HCl/ Dextrose (Zofran Inj/D5W) 54 ml @ 108 mls/hr Q6H PRN IV NAUSEA AND/OR VOMITING Last administered on 01/18/17 01:13; Admin Dose 108 MLS/ HR; Start 01/17/17 at 23:30 Famotidine (Pepcid) 20 mg DAILY PO Last administered on 01/21/17 08:51; Admin Dose 20 MG; Start 01/20/17 at 12:30 ZOEY PAINTING NP Jan 22, 2017 07:15
[2017-01-22] MEDS: INSULIN ASPART [NOVOLOG] 3 ML PEN SC SCH ×4 (07:50→21:16)
[2017-01-22] MEDS ORDERED: MAGNESIUM OXIDE 400 MG TAB PO ONE (08:30)
[2017-01-22] MEDS: ALBUTEROL/IPRATROPIUM (NEB) 3 ML AMP HHN SCH ×4 (08:57→21:07)
[2017-01-22] MEDS: ASPIRIN 81 MG TAB PO SCH (09:14)
[2017-01-22] MEDS: FAMOTIDINE 20 MG TAB PO SCH (09:14)
[2017-01-22] MEDS: LORATADINE 10 MG TAB PO SCH (09:14)
[2017-01-22] MEDS: GABAPENTIN 300 MG CAP PO SCH ×2 (09:14→21:15)
[2017-01-22] MEDS: EZETIMIBE 10 MG TAB PO SCH (09:14)
--- NOTE | 2017-01-22 09:28 | PN ---
DATE: 01/22/2017 SUBJECTIVE: The patient had hemodialysis yesterday tolerated it well. The patient states urinary o utput is improving, total output is over 1500 mL. No other acute events noted. No vomitus, hematem esis, hematochezia. OBJECTIVE: VITAL SIGNS: Blood pressure 172/58, respirations 18, pulse 78, temperature 97.7. HEENT: Head is normocephalic. NECK: Supple. HEART: Regular rate. LUNGS: Show diminished breath sounds at the base. ABDOMEN: Soft, nontender to palpation, no rebound or guarding. EXTREMITIES: Negative for clubbing, cyanosis, no edema. DERMATOLOGIC: No rashes. MUSCULOSKELETAL: No joint effusions. NEUROLOGIC: No change in exam. MEDICATIONS: The patient's medications have been reviewed. LABORATORY DATA: Shows sodium 135, potassium 4.5, chloride 101, BUN 23, creatinine 4.18, magnesium 1.6. White count 9.7, hemoglobin 10.7, hematocrit 32.9, platelet count is 187. ASSESSMENT AND PLAN: 1. Nonoliguric acute kidney injury on top of chronic kidney disease with previous baseline creatini ne of 1.0 mg/dL. Etiology of acute kidney injury is most likely due to acute tubular necrosis. The re is low suspicion for acute glomerulonephritis. The patient's serological workup has been negativ e to date. The patient's GOLDY complements and anti-double stranded DNA rheumatoid factor are negativ e. Patient's hepatitis panel is negative. The patient's SPEP and UPEP are essentially negative. A t this point, the patient has been started on hemodialysis and has had 3 sessions. The patient's ur inary output has improved. Therefore, there may be underlying recovery. We will continue to hold d ialysis and monitor for signs of renal recovery. 2. Hypomagnesemia, replete with magnesium sulfate. 3. Metabolic acidosis secondary to acute kidney injury, resolved. 4. Mineral bone disorder. Monitor calcium and phosphorus levels. 5. Anemia. We will monitor H and H levels. No need for Epogen at this time. 6. Dyslipidemia. Continue statin therapy. 7. Congestive heart failure. The patient is clinically improved. Continue current medical managem ent. 8. Hypothyroidism. Continue Synthroid. 9. Diabetes, continue Accu-Cheks and insulin sliding scale. 10. Pulmonary hypertension. Continue current medical management. Dictated By: ELINA LAFLEUR/AYDIN Conf#: [id number] DID#: [id number]
[2017-01-22 19:24] VITALS: BP 128/88; RESP 20
[2017-01-22] MEDS: PRAMIPEXOLE 0.25 MG TAB PO SCH (21:14)
[2017-01-22] MEDS: MONTELUKAST 10 MG TAB PO SCH (21:15)
[2017-01-22] MEDS: ATORVASTATIN 20 MG TAB PO SCH (21:15)
[2017-01-23] MEDS: ALBUTEROL HFA 8 GM INHALER INH SCH ×6 (01:00→20:42)
[2017-01-23] MEDS: ACCU-CHEK XX SCH (01:57)
[2017-01-23 05:42] LABS: ADD SCAN DIFF NO
[2017-01-23 05:45] LABS: BASOPHILS % 0.3 % (0.0-2.0); EOSINOPHILS # 0.5 10^3/ul (0.0-0.5); EOSINOPHILS % 5.2 % (0.0-7.0); HEMATOCRIT 33.6 % (37.0-47.0); HEMOGLOBIN 10.5 g/dl (12.0-16.0); LYMPHOCYTES # 1.7 10^3/ul (0.8-2.9); LYMPHOCYTES % 17.9 % (15.0-51.0); MEAN CORPUSCULAR HEMOGLOBIN 28.4 pg (29.0-33.0); MEAN CORPUSCULAR HGB CONC 31.3 g/dl (32.0-37.0); MEAN CORPUSCULAR VOLUME 90.8 fl (82.0-101.0); MEAN PLATELET VOLUME 10.7 fl (7.4-10.4); MONOCYTE # 0.8 10^3/ul (0.3-0.9); MONOCYTES % 8.5 % (0.0-11.0); NEUTROPHIL # 6.2 10^3/ul (1.6-7.5); NEUTROPHILS % 67.2 % (39.0-77.0); PLATELET COUNT 210 10^3/UL (140-415); RED CELL DISTRIBUTION WIDTH 12.8 % (11.5-14.5); WHITE BLOOD COUNT 9.3 10^3/ul (4.8-10.8)
[2017-01-23 06:02] LABS: POTASSIUM 4.4 mmol/L (3.5-5.1)
[2017-01-23 06:05] LABS: CREATININE 3.63 mg/dl (0.44-1.00)
[2017-01-23 06:06] LABS: CALCIUM 8.8 mg/dl (8.4-10.2); MAGNESIUM 1.6 mg/dl (1.7-2.5); PHOSPHORUS 4.9 mg/dl (2.5-4.9)
[2017-01-23] MEDS: LEVOTHYROXINE 112 MCG TAB PO SCH (06:58)
[2017-01-23 07:33] VITALS: BP 126/57; RESP 18
[2017-01-23] MEDS: ALBUTEROL/IPRATROPIUM (NEB) 3 ML AMP HHN SCH ×4 (09:30→20:55)
[2017-01-23] MEDS: EZETIMIBE 10 MG TAB PO SCH (09:31)
[2017-01-23] MEDS: GABAPENTIN 300 MG CAP PO SCH ×2 (09:31→20:35)
[2017-01-23] MEDS: LORATADINE 10 MG TAB PO SCH (09:31)
[2017-01-23] MEDS: FAMOTIDINE 20 MG TAB PO SCH (09:31)
[2017-01-23] MEDS: ASPIRIN 81 MG TAB PO SCH (09:31)
[2017-01-23] MEDS: INSULIN ASPART [NOVOLOG] 3 ML PEN SC SCH ×4 (09:40→21:16)
--- NOTE | 2017-01-23 10:45 | PN ---
Date/Time of Note Date/Time of Note DATE: 01/23/17 TIME: 10:45 Assessment/Plan VTE Prophylaxis VTE Prophylaxis Intervention: SCD's Lines/Catheters IV Catheter Type (from [facility]): DIALYSIS CATH Urinary Cath still in place: No Assessment/Plan Chief Complaint/Hosp Course 1. Acute kidney injury requiring hemodialysis. Etiology could be acute tubular necrosis versus induced by drugs including ARB or NSAIDs. Continue hemodialysis as per nephrology. 2. Hyperkalemia secondary to acute kidney injury, currently resolved. 3. Type 2 diabetes mellitus. Hemoglobin A1c is 7.7. Continue sliding scale insulin along with Lantus insulin. Blood sugars fairly well controlled. 4. Pulmonary hypertension. PA pressure of 49 mmHg as per 2-D echocardiogram. Continue supplemental oxygen. 5. Dyslipidemia. Continue statins. 6. Acute respiratory failure. Hypoxic, most probably secondary to volume overload as well as a combination of diastolic heart failure. Continue inhaled bronchodilators. Pulmonary following. 7. Hypothyroidism. Continue Synthroid. 8. Morbid obesity. BMI of 46.0 kg/m sq. Weight reduction will be advised. 9. Fluid, electrolytes, and nutrition. Carbohydrate controlled renal diet. 10. Deep venous thrombosis prophylaxis. Bilateral sequential compression devices. 11. Gastrointestinal prophylaxis. H2 receptor blockers. 12. Plan. Continue hemodialysis as per nephrology. Await further recommendations from nephrology. Case discussed with Dr. Torres. Problems: Subjective 24 Hr Interval Summary Free Text/Dictation Vital signs stable. Status post hemodialysis on 01/22/2017. Exam/Review of Systems Vital Signs Vitals Vital Signs Date Time Temp Pulse Resp B/P Pulse Ox O2 Delivery O2 Flow Rate FiO2 01/23/17 09:30 2.0 01/23/17 09:30 86 18 97 Nasal Cannula 01/23/17 07:33 98.0 126/57 01/22/17 08:57 21 Intake and Output 01/22/17 01/22/17 01/23/17 15:00 23:00 07:00 Intake Total 1380 ml 600 ml Output Total 1200 ml 1450 ml Balance 180 ml -850 ml Exam GENERAL: This is a morbidly obese female lying in bed in no apparent distress. HEENT: Head normocephalic and atraumatic. Eyes: Anicteric sclerae. Conjunctivae clear. ENT: Nasal septum is midline. Oral mucosa is dry. NECK: Short and obese. Unable to visualize any neck veins. CARDIAC: Regular rate and rhythm. No murmurs. RESPIRATORY: Diminished breath sounds bilaterally with bilateral rales and occasional wheezing. ABDOMEN: Obese. Soft. Nontender. Bowel sounds hypoactive in all 4 quadrants. GENITOURINARY: Deferred. EXTREMITIES: No cyanosis, no clubbing. B/L LE edema. Peripheral pulses palpable. NEUROLOGIC: The patient is awake, alert, and oriented. Cranial nerves are grossly intact. Results Result Diagram: 01/23/17 0445 01/23/17 0445 Results 24 hrs Laboratory Tests Test 01/22/17 12:12 01/22/17 12:36 01/22/17 17:51 01/22/17 21:01 Bedside Glucose 269 H 209 252 H Lab Scanned Report REFERENCE LAB Test 01/23/17 01:49 01/23/17 04:45 01/23/17 07:51 Bedside Glucose 216 193 White Blood Count 9.3 Red Blood Count 3.70 L Hemoglobin 10.5 L Hematocrit 33.6 L Mean Corpuscular Volume 90.8 Mean Corpuscular Hemoglobin 28.4 L Mean Corpuscular Hemoglobin Concent 31.3 L Red Cell Distribution Width 12.8 Platelet Count 210 Mean Platelet Volume 10.7 H Neutrophils % 67.2 Lymphocytes % 17.9 Monocytes % 8.5 Eosinophils % 5.2 Basophils % 0.3 Nucleated Red Blood Cells % 0.0 Neutrophils # 6.2 Lymphocytes # 1.7 Monocytes # 0.8 Eosinophils # 0.5 Basophils # 0.0 Nucleated Red Blood Cells # 0.0 Sodium Level 139 Potassium Level 4.4 Chloride Level 98 Carbon Dioxide Level 26 Anion Gap 19 H Blood Urea Nitrogen 60 H Creatinine 3.63 H Glucose Level 219 Calcium Level 8.8 Phosphorus Level 4.9 Magnesium Level 1.6 L Medications Medications Current Medications Amlodipine Besylate (Norvasc) 10 mg DAILY PO Last administered on 01/18/17 09: 20; Admin Dose 10 MG; Start 01/18/17 at 09:00; Status Future Hold Aspirin (Aspirin) 81 mg DAILY PO Last administered on 01/23/17 09:31; Admin Dose 81 MG; Start 01/18/17 at 09:00 Carvedilol (Coreg) 3.125 mg BID PO Last administered on 01/23/17 09:31; Admin Dose 3.125 MG; Start 01/17/17 at 21:00 EZETIMIBE (Zetia) 10 mg DAILY PO Last administered on 01/23/17 09:31; Admin Dose 10 MG; Start 01/18/17 at 09:00 Gabapentin (Neurontin) 300 mg BID PO Last administered on 01/23/17 09:31; Admin Dose 300 MG; Start 01/17/17 at 21:00 Loratadine (Claritin) 10 mg DAILY PO Last administered on 01/23/17 09:31; Admin Dose 10 MG; Start 01/18/17 at 09:00 Montelukast Sodium (Singulair) 10 mg QHS PO Last administered on 01/22/17 21:15 ; Admin Dose 10 MG; Start 01/17/17 at 21:00 Nitroglycerin (Nitroglycerin (Sl Tab) 0.4 Mg) 1 tab Q5M PRN SL ANGINA; Start at 15:00 Pramipexole (Mirapex) 0.5 mg HS PO Last administered on 01/22/17 21:14; Admin Dose 0.5 MG; Start 01/17/17 at 21:00 Tramadol HCl (Ultram) 50 mg BID PRN PO PAIN Last administered on 01/20/17 22:02 ; Admin Dose 50 MG; Start 01/17/17 at 15:00 Diagnostic Test (Pha) (Accu-Chek) 1 ea 02 XX Last administered on 01/23/17 01: 57; Admin Dose 1 EA; Start 01/18/17 at 02:00 Atorvastatin Calcium (Lipitor) 20 mg DAILY@21 PO Last administered on 01/22/17 21:15; Admin Dose 20 MG; Start 01/17/17 at 21:00 Miscellaneous Information 1 ea NOTE XX ; Start 01/17/17 at 16:30 Glucose (Glutose) 15 gm Q15M PRN PO DECREASED GLUCOSE; Start 01/17/17 at 16:30 Glucose (Glutose) 22.5 gm Q15M PRN PO DECREASED GLUCOSE; Start 01/17/17 at 16: 30 Dextrose (D50w Syringe) 25 ml Q15M PRN IV DECREASED GLUCOSE Last administered on 01/18/17 06:06; Admin Dose 25 ML; Start 01/17/17 at 16:30 Dextrose (D50w Syringe) 50 ml Q15M PRN IV DECREASED GLUCOSE Last administered on 01/18/17 11:11; Admin Dose 50 ML; Start 01/17/17 at 16:30 Glucagon (Glucagen) 1 mg Q15M PRN IM DECREASED GLUCOSE; Start 01/17/17 at 16:30 Glucose 15 gm 15 gm Q15M PRN BUCCAL DECREASED GLUCOSE; Start 01/17/17 at 16:30 Ondansetron HCl/ Dextrose (Zofran Inj/D5W) 54 ml @ 108 mls/hr Q6H PRN IV NAUSEA AND/OR VOMITING Last administered on 01/18/17 01:13; Admin Dose 108 MLS/ HR; Start 01/17/17 at 23:30 Famotidine (Pepcid) 20 mg DAILY PO Last administered on 01/23/17 09:31; Admin Dose 20 MG; Start 01/20/17 at 12:30 ZOEY PAINTING NP Jan 23, 2017 10:45
--- NOTE | 2017-01-23 15:47 | CONS ---
Date/Time of Note Date/Time of Note DATE: 01/23/17 TIME: 15:44 Consult Date/Type/Reason Admit Date/Time Jan 17, 2017 at 12:29 Initial Consult Date Type of Consultation: nephro Subjective The patient on hd two days ago. The patient states urinary output is improving. No other acute events noted. No vomitus, hematemesis, hematochezia. OBJECTIVE: HEENT: Head is normocephalic. NECK: Supple. HEART: Regular rate. LUNGS: Show diminished breath sounds at the base. ABDOMEN: Soft, nontender to palpation, no rebound or guarding. EXTREMITIES: Negative for clubbing, cyanosis, no edema. DERMATOLOGIC: No rashes. MUSCULOSKELETAL: No joint effusions. NEUROLOGIC: No change in exam. MEDICATIONS: The patient's medications have been reviewed. Objective Vital Signs Date Time Temp Pulse Resp B/P Pulse Ox O2 Delivery O2 Flow Rate FiO2 01/23/17 12:10 88 20 96 Nasal Cannula 2.0 01/23/17 07:33 98.0 126/57 01/22/17 08:57 21 Intake and Output 01/22/17 01/22/17 01/23/17 15:00 23:00 07:00 Intake Total 1380 ml 600 ml Output Total 1200 ml 1450 ml Balance 180 ml -850 ml Results/Medications Result Diagram: 01/23/17 0445 01/23/17 0445 Results 24 hrs Laboratory Tests Test 01/22/17 17:51 01/22/17 21:01 01/23/17 01:49 01/23/17 04:45 Bedside Glucose 209 252 H 216 White Blood Count 9.3 Red Blood Count 3.70 L Hemoglobin 10.5 L Hematocrit 33.6 L Mean Corpuscular Volume 90.8 Mean Corpuscular Hemoglobin 28.4 L Mean Corpuscular Hemoglobin Concent 31.3 L Red Cell Distribution Width 12.8 Platelet Count 210 Mean Platelet Volume 10.7 H Neutrophils % 67.2 Lymphocytes % 17.9 Monocytes % 8.5 Eosinophils % 5.2 Basophils % 0.3 Nucleated Red Blood Cells % 0.0 Neutrophils # 6.2 Lymphocytes # 1.7 Monocytes # 0.8 Eosinophils # 0.5 Basophils # 0.0 Nucleated Red Blood Cells # 0.0 Sodium Level 139 Potassium Level 4.4 Chloride Level 98 Carbon Dioxide Level 26 Anion Gap 19 H Blood Urea Nitrogen 60 H Creatinine 3.63 H Glucose Level 219 Calcium Level 8.8 Phosphorus Level 4.9 Magnesium Level 1.6 L Test 01/23/17 07:51 01/23/17 12:13 Bedside Glucose 193 302 H Medications Current Medications Amlodipine Besylate (Norvasc) 10 mg DAILY PO Last administered on 01/18/17 09: 20; Admin Dose 10 MG; Start 01/18/17 at 09:00; Status Future Hold Aspirin (Aspirin) 81 mg DAILY PO Last administered on 01/23/17 09:31; Admin Dose 81 MG; Start 01/18/17 at 09:00 Carvedilol (Coreg) 3.125 mg BID PO Last administered on 01/23/17 09:31; Admin Dose 3.125 MG; Start 01/17/17 at 21:00 EZETIMIBE (Zetia) 10 mg DAILY PO Last administered on 01/23/17 09:31; Admin Dose 10 MG; Start 01/18/17 at 09:00 Gabapentin (Neurontin) 300 mg BID PO Last administered on 01/23/17 09:31; Admin Dose 300 MG; Start 01/17/17 at 21:00 Loratadine (Claritin) 10 mg DAILY PO Last administered on 01/23/17 09:31; Admin Dose 10 MG; Start 01/18/17 at 09:00 Montelukast Sodium (Singulair) 10 mg QHS PO Last administered on 01/22/17 21:15 ; Admin Dose 10 MG; Start 01/17/17 at 21:00 Nitroglycerin (Nitroglycerin (Sl Tab) 0.4 Mg) 1 tab Q5M PRN SL ANGINA; Start at 15:00 Pramipexole (Mirapex) 0.5 mg HS PO Last administered on 01/22/17 21:14; Admin Dose 0.5 MG; Start 01/17/17 at 21:00 Tramadol HCl (Ultram) 50 mg BID PRN PO PAIN Last administered on 01/20/17 22:02 ; Admin Dose 50 MG; Start 01/17/17 at 15:00 Diagnostic Test (Pha) (Accu-Chek) 1 ea 02 XX Last administered on 01/23/17 01: 57; Admin Dose 1 EA; Start 01/18/17 at 02:00 Atorvastatin Calcium (Lipitor) 20 mg DAILY@21 PO Last administered on 01/22/17 21:15; Admin Dose 20 MG; Start 01/17/17 at 21:00 Miscellaneous Information 1 ea NOTE XX ; Start 01/17/17 at 16:30 Glucose (Glutose) 15 gm Q15M PRN PO DECREASED GLUCOSE; Start 01/17/17 at 16:30 Glucose (Glutose) 22.5 gm Q15M PRN PO DECREASED GLUCOSE; Start 01/17/17 at 16: 30 Dextrose (D50w Syringe) 25 ml Q15M PRN IV DECREASED GLUCOSE Last administered on 01/18/17 06:06; Admin Dose 25 ML; Start 01/17/17 at 16:30 Dextrose (D50w Syringe) 50 ml Q15M PRN IV DECREASED GLUCOSE Last administered on 01/18/17 11:11; Admin Dose 50 ML; Start 01/17/17 at 16:30 Glucagon (Glucagen) 1 mg Q15M PRN IM DECREASED GLUCOSE; Start 01/17/17 at 16:30 Glucose 15 gm 15 gm Q15M PRN BUCCAL DECREASED GLUCOSE; Start 01/17/17 at 16:30 Ondansetron HCl/ Dextrose (Zofran Inj/D5W) 54 ml @ 108 mls/hr Q6H PRN IV NAUSEA AND/OR VOMITING Last administered on 01/18/17 01:13; Admin Dose 108 MLS/ HR; Start 01/17/17 at 23:30 Famotidine (Pepcid) 20 mg DAILY PO Last administered on 01/23/17 09:31; Admin Dose 20 MG; Start 01/20/17 at 12:30 Assessment/Plan Chief Complaint/Hosp Course ASSESSMENT AND PLAN: 1. Nonoliguric acute kidney injury on top of chronic kidney disease with previous baseline creatinine of 1.0 mg/dL. Etiology of acute kidney injury is most likely due to acute tubular necrosis. There is low suspicion for acute glomerulonephritis. The patient's serological workup has been negative to date. The patient's GOLDY complements and anti-double stranded DNA rheumatoid factor are negative. Patient's hepatitis panel is negative. The patient's SPEP and UPEP are essentially negative. At this point, the patient has been started on hemodialysis and has had 4 sessions. The patient's urinary output has improved. Therefore, there may be underlying recovery. We will continue to hold dialysis and monitor for signs of renal recovery. 2. Hypomagnesemia, replete with magnesium sulfate. 3. Metabolic acidosis secondary to acute kidney injury, resolved. 4. Mineral bone disorder. Monitor calcium and phosphorus levels. 5. Anemia. We will monitor H and H levels. No need for Epogen at this time. 6. Dyslipidemia. Continue statin therapy. 7. Congestive heart failure. The patient is clinically improved. Continue current medical management. 8. Hypothyroidism. Continue Synthroid. 9. Diabetes, continue Accu-Cheks and insulin sliding scale. 10. Pulmonary hypertension. Continue current medical management. Problems: LINDSEY VAN MD Jan 23, 2017 15:47
[2017-01-23] MEDS: traMADol 50 MG TAB PO PRN (16:04)
[2017-01-23 19:37] VITALS: BP 137/63; RESP 22
[2017-01-23] MEDS: MONTELUKAST 10 MG TAB PO SCH (20:35)
[2017-01-23] MEDS: ATORVASTATIN 20 MG TAB PO SCH (20:35)
[2017-01-23] MEDS: ZOLPIDEM 5 MG TAB PO PRN (21:18)
[2017-01-23] MEDS: PRAMIPEXOLE 0.25 MG TAB PO SCH (22:16)
[2017-01-23] MEDS: INSULIN GLARGINE [LANtus] 3 ML PEN SC SCH (23:19)
[2017-01-24] MEDS: ALBUTEROL HFA 8 GM INHALER INH SCH ×6 (01:00→21:00)
[2017-01-24] MEDS: ACCU-CHEK XX SCH (02:30)
[2017-01-24 05:40] LABS: ADD SCAN DIFF NO
[2017-01-24 05:47] LABS: BASOPHILS % 0.5 % (0.0-2.0); EOSINOPHILS # 0.5 10^3/ul (0.0-0.5); EOSINOPHILS % 5.9 % (0.0-7.0); HEMATOCRIT 31.8 % (37.0-47.0); HEMOGLOBIN 10.1 g/dl (12.0-16.0); LYMPHOCYTES # 1.7 10^3/ul (0.8-2.9); LYMPHOCYTES % 21.6 % (15.0-51.0); MEAN CORPUSCULAR HEMOGLOBIN 29.1 pg (29.0-33.0); MEAN CORPUSCULAR HGB CONC 31.8 g/dl (32.0-37.0); MEAN CORPUSCULAR VOLUME 91.6 fl (82.0-101.0); MEAN PLATELET VOLUME 10.4 fl (7.4-10.4); MONOCYTE # 0.7 10^3/ul (0.3-0.9); MONOCYTES % 8.4 % (0.0-11.0); NEUTROPHILS % 62.2 % (39.0-77.0); PLATELET COUNT 217 10^3/UL (140-415); RED BLOOD COUNT 3.47 10^6/ul (4.20-5.40); RED CELL DISTRIBUTION WIDTH 12.6 % (11.5-14.5)
[2017-01-24 06:02] LABS: POTASSIUM 4.6 mmol/L (3.5-5.1)
[2017-01-24 06:04] LABS: CREATININE 2.88 mg/dl (0.44-1.00)
[2017-01-24 06:05] LABS: CALCIUM 8.6 mg/dl (8.4-10.2)
[2017-01-24 06:29] LABS: MAGNESIUM 1.5 mg/dl (1.7-2.5); PHOSPHORUS 4.7 mg/dl (2.5-4.9)
[2017-01-24] MEDS: LEVOTHYROXINE 112 MCG TAB PO SCH (07:20)
[2017-01-24 08:09] VITALS: BP 144/64; RESP 18
[2017-01-24] MEDS: GABAPENTIN 300 MG CAP PO SCH ×2 (08:46→20:15)
[2017-01-24] MEDS: LORATADINE 10 MG TAB PO SCH (08:46)
[2017-01-24] MEDS: ASPIRIN 81 MG TAB PO SCH (08:46)
[2017-01-24] MEDS: FAMOTIDINE 20 MG TAB PO SCH (08:46)
[2017-01-24] MEDS ORDERED: MAGNESIUM OXIDE 400 MG TAB PO ONE (09:00)
[2017-01-24] MEDS: ALBUTEROL/IPRATROPIUM (NEB) 3 ML AMP HHN SCH ×4 (09:00→21:47)
[2017-01-24] MEDS: INSULIN ASPART [NOVOLOG] 3 ML PEN SC SCH ×6 (09:01→21:26)
[2017-01-24] MEDS: EZETIMIBE 10 MG TAB PO SCH (09:01)
--- NOTE | 2017-01-24 09:01 | PN ---
Date/Time of Note Date/Time of Note DATE: 01/24/17 TIME: 08:56 Assessment/Plan VTE Prophylaxis VTE Prophylaxis Intervention: SCD's Lines/Catheters IV [facility]ter Type (from [facility]): DIALYSIS CATHETER Urinary Cath still in place: No Assessment/Plan Chief Complaint/Hosp Course 1. Acute kidney injury requiring hemodialysis. Etiology could be acute tubular necrosis versus induced by drugs including ARB or NSAIDs. Continue hemodialysis as per nephrology. 2. Hyperkalemia secondary to acute kidney injury. Currently resolved. 3. Type 2 diabetes mellitus. Hemoglobin A1c is 7.7. Continue sliding scale insulin along with Lantus insulin. Adjust sliding scale to obtain optimal blood sugar control. 4. Pulmonary hypertension. PA pressure of 49 mmHg as per 2-D echocardiogram. Continue supplemental oxygen. 5. Dyslipidemia. Continue statins. 6. Acute respiratory failure. Hypoxic, most probably secondary to volume overload as well as a combination of diastolic heart failure. Continue inhaled bronchodilators. Pulmonary following. 7. Hypothyroidism. Continue Synthroid. 8. Morbid obesity. BMI of 46.0 kg/m sq. Weight reduction will be advised. 9. Fluid, electrolytes, and nutrition. Carbohydrate controlled renal diet. 10. Deep venous thrombosis prophylaxis. Bilateral sequential compression devices. 11. Gastrointestinal prophylaxis. H2 receptor blockers. 12. Plan. Replete magnesium. Continue hemodialysis as per nephrology. Await clearance from nephrology before discharge. Obtain physical therapy evaluation. Add pre-meal insulin. Case discussed with Dr. Torres. Problems: Subjective 24 Hr Interval Summary Free Text/Dictation The patient's blood sugars have been running high over the last night. Shortness of breath with minimal exertion. Exam/Review of Systems Vital Signs Vitals Vital Signs Date Time Temp Pulse Resp B/P Pulse Ox O2 Delivery O2 Flow Rate FiO2 01/24/17 08:09 98.4 65 18 144/64 94 01/23/17 20:56 21 01/23/17 20:00 Nasal Cannula 2.0 Intake and Output 01/23/17 01/23/17 01/24/17 15:00 23:00 07:00 Intake Total 820 ml 480 ml Output Total 780 ml Balance 820 ml -300 ml Exam GENERAL: This is a morbidly obese female lying in bed in no apparent distress. HEENT: Head normocephalic and atraumatic. Eyes: Anicteric sclerae. Conjunctivae clear. ENT: Nasal septum is midline. Oral mucosa is dry. NECK: Short and obese. Unable to visualize any neck veins. CARDIAC: Regular rate and rhythm. No murmurs. RESPIRATORY: Diminished breath sounds bilaterally with bilateral rales and occasional wheezing. ABDOMEN: Obese. Soft. Nontender. Bowel sounds hypoactive in all 4 quadrants. GENITOURINARY: Deferred. EXTREMITIES: No cyanosis, no clubbing. B/L LE edema. Peripheral pulses palpable. NEUROLOGIC: The patient is awake, alert, and oriented. Cranial nerves are grossly intact. Results Result Diagram: 01/24/17 0430 01/24/17 0430 Results 24 hrs Laboratory Tests Test 01/23/17 12:13 01/23/17 17:19 01/23/17 21:11 01/24/17 02:27 Bedside Glucose 302 H 249 H 384 H 252 H Test 01/24/17 04:30 01/24/17 08:04 White Blood Count 8.0 Red Blood Count 3.47 L Hemoglobin 10.1 L Hematocrit 31.8 L Mean Corpuscular Volume 91.6 Mean Corpuscular Hemoglobin 29.1 Mean Corpuscular Hemoglobin Concent 31.8 L Red Cell Distribution Width 12.6 Platelet Count 217 Mean Platelet Volume 10.4 Neutrophils % 62.2 Lymphocytes % 21.6 Monocytes % 8.4 Eosinophils % 5.9 Basophils % 0.5 Nucleated Red Blood Cells % 0.0 Neutrophils # 5.0 Lymphocytes # 1.7 Monocytes # 0.7 Eosinophils # 0.5 Basophils # 0.0 Nucleated Red Blood Cells # 0.0 Sodium Level 141 Potassium Level 4.6 Chloride Level 102 Carbon Dioxide Level 25 Anion Gap 19 H Blood Urea Nitrogen 66 H Creatinine 2.88 H Glucose Level 229 H Calcium Level 8.6 Phosphorus Level 4.7 Magnesium Level 1.5 L Bedside Glucose 199 Medications Medications Current Medications Amlodipine Besylate (Norvasc) 10 mg DAILY PO Last administered on 01/18/17 09: 20; Admin Dose 10 MG; Start 01/18/17 at 09:00; Status Future Hold Aspirin (Aspirin) 81 mg DAILY PO Last administered on 01/23/17 09:31; Admin Dose 81 MG; Start 01/18/17 at 09:00 Carvedilol (Coreg) 3.125 mg BID PO Last administered on 01/23/17 20:35; Admin Dose 3.125 MG; Start 01/17/17 at 21:00 EZETIMIBE (Zetia) 10 mg DAILY PO Last administered on 01/23/17 09:31; Admin Dose 10 MG; Start 01/18/17 at 09:00 Gabapentin (Neurontin) 300 mg BID PO Last administered on 01/23/17 20:35; Admin Dose 300 MG; Start 01/17/17 at 21:00 Loratadine (Claritin) 10 mg DAILY PO Last administered on 01/23/17 09:31; Admin Dose 10 MG; Start 01/18/17 at 09:00 Montelukast Sodium (Singulair) 10 mg QHS PO Last administered on 01/23/17 20:35 ; Admin Dose 10 MG; Start 01/17/17 at 21:00 Nitroglycerin (Nitroglycerin (Sl Tab) 0.4 Mg) 1 tab Q5M PRN SL ANGINA; Start at 15:00 Pramipexole (Mirapex) 0.5 mg HS PO Last administered on 01/23/17 22:16; Admin Dose 0.5 MG; Start 01/17/17 at 21:00 Tramadol HCl (Ultram) 50 mg BID PRN PO PAIN Last administered on 01/23/17 16:04 ; Admin Dose 50 MG; Start 01/17/17 at 15:00 Diagnostic Test (Pha) (Accu-Chek) 1 ea 02 XX Last administered on 01/24/17 02: 30; Admin Dose 1 EA; Start 01/18/17 at 02:00 Atorvastatin Calcium (Lipitor) 20 mg DAILY@21 PO Last administered on 01/23/17 20:35; Admin Dose 20 MG; Start 01/17/17 at 21:00 Miscellaneous Information 1 ea NOTE XX ; Start 01/17/17 at 16:30 Glucose (Glutose) 15 gm Q15M PRN PO DECREASED GLUCOSE; Start 01/17/17 at 16:30 Glucose (Glutose) 22.5 gm Q15M PRN PO DECREASED GLUCOSE; Start 01/17/17 at 16: 30 Dextrose (D50w Syringe) 25 ml Q15M PRN IV DECREASED GLUCOSE Last administered on 01/18/17 06:06; Admin Dose 25 ML; Start 01/17/17 at 16:30 Dextrose (D50w Syringe) 50 ml Q15M PRN IV DECREASED GLUCOSE Last administered on 01/18/17 11:11; Admin Dose 50 ML; Start 01/17/17 at 16:30 Glucagon (Glucagen) 1 mg Q15M PRN IM DECREASED GLUCOSE; Start 01/17/17 at 16:30 Glucose 15 gm 15 gm Q15M PRN BUCCAL DECREASED GLUCOSE; Start 01/17/17 at 16:30 Ondansetron HCl/ Dextrose (Zofran Inj/D5W) 54 ml @ 108 mls/hr Q6H PRN IV NAUSEA AND/OR VOMITING Last administered on 01/18/17 01:13; Admin Dose 108 MLS/ HR; Start 01/17/17 at 23:30 Famotidine (Pepcid) 20 mg DAILY PO Last administered on 01/23/17 09:31; Admin Dose 20 MG; Start 01/20/17 at 12:30 Insulin Glargine (Lantus) 10 unit DAILY@20 SC Last administered on 01/23/17 23: 19; Admin Dose 10 UNIT; Start 01/23/17 at 22:00 ZOEY PAINTING NP Jan 24, 2017 09:01
[2017-01-24] MEDS: METHYLPREDNISOLONE 40 MG INJ IV SCH ×2 (12:32→20:17)
[2017-01-24] MEDS: NPH, HUMAN INSULIN ISOPHANE 3ML VIAL SC SCH ×2 (12:34→21:25)
--- NOTE | 2017-01-24 14:31 | PN ---
Date/Time of Note Date/Time of Note DATE: 01/24/17 TIME: 14:30 Assessment/Plan VTE Prophylaxis VTE Prophylaxis Intervention: other Lines/Catheters IV C[facility] Type [facility]from [facility] Central Line Central line still needed: Yes Urinary Cath still in place: No Assessment/Plan Assessment/Plan 1. Nonoliguric acute kidney injury on top of chronic kidney disease with previous baseline creatinine of 1.0 mg/dL. Etiology of acute kidney injury is most likely due to acute tubular necrosis. There is low suspicion for acute glomerulonephritis. The patient's serological workup has been negative to date. The patient's GOLDY complements and anti-double stranded DNA rheumatoid factor are negative. Patient's hepatitis panel is negative. The patient's SPEP and UPEP are essentially negative. At this point, the patient has been started on hemodialysis and has had 4 sessions. The patient's urinary output has improved. Therefore, there may be underlying recovery. We will continue to hold dialysis and monitor for signs of renal recovery. 2. Hypomagnesemia, replete with magnesium sulfate. 3. Metabolic acidosis secondary to acute kidney injury, resolved. 4. Mineral bone disorder. Monitor calcium and phosphorus levels. 5. Anemia. We will monitor H and H levels. No need for Epogen at this time. 6. Dyslipidemia. Continue statin therapy. 7. Congestive heart failure. The patient is clinically improved. Continue current medical management. 8. Hypothyroidism. Continue Synthroid. 9. Diabetes, continue Accu-Cheks and insulin sliding scale. 10. Pulmonary hypertension. Continue current medical management. Subjective 24 Hr Interval Summary Free Text/Dictation The patient on hd three days ago. The patient states urinary output is improving. No other acute events noted. No vomitus, hematemesis, hematochezia. OBJECTIVE: HEENT: Head is normocephalic. NECK: Supple. HEART: Regular rate. LUNGS: Show diminished breath sounds at the base. ABDOMEN: Soft, nontender to palpation, no rebound or guarding. EXTREMITIES: Negative for clubbing, cyanosis, no edema. DERMATOLOGIC: No rashes. MUSCULOSKELETAL: No joint effusions. NEUROLOGIC: No change in exam. MEDICATIONS: The patient's medications have been reviewed. Exam/Review of Systems Vital Signs Vitals Vital Signs Date Time Temp Pulse Resp B/P Pulse Ox O2 Delivery O2 Flow Rate FiO2 01/24/17 08:09 98.4 65 18 144/64 94 01/24/17 08:00 Nasal Cannula 2.0 01/23/17 20:56 21 Intake and Output 01/23/17 01/23/17 01/24/17 15:00 23:00 07:00 Intake Total 820 ml 480 ml Output Total 780 ml Balance 820 ml -300 ml Results Result Diagram: 01/24/17 0430 01/24/17 0430 Results 24 hrs Laboratory Tests Test 01/23/17 17:19 01/23/17 21:11 01/24/17 02:27 01/24/17 04:30 Bedside Glucose 249 H 384 H 252 H White Blood Count 8.0 Red Blood Count 3.47 L Hemoglobin 10.1 L Hematocrit 31.8 L Mean Corpuscular Volume 91.6 Mean Corpuscular Hemoglobin 29.1 Mean Corpuscular Hemoglobin Concent 31.8 L Red Cell Distribution Width 12.6 Platelet Count 217 Mean Platelet Volume 10.4 Neutrophils % 62.2 Lymphocytes % 21.6 Monocytes % 8.4 Eosinophils % 5.9 Basophils % 0.5 Nucleated Red Blood Cells % 0.0 Neutrophils # 5.0 Lymphocytes # 1.7 Monocytes # 0.7 Eosinophils # 0.5 Basophils # 0.0 Nucleated Red Blood Cells # 0.0 Sodium Level 141 Potassium Level 4.6 Chloride Level 102 Carbon Dioxide Level 25 Anion Gap 19 H Blood Urea Nitrogen 66 H Creatinine 2.88 H Glucose Level 229 H Calcium Level 8.6 Phosphorus Level 4.7 Magnesium Level 1.5 L Test 01/24/17 08:04 01/24/17 12:29 Bedside Glucose 199 291 H Medications Medications Current Medications Amlodipine Besylate (Norvasc) 10 mg DAILY PO Last administered on 01/18/17 09: 20; Admin Dose 10 MG; Start 01/18/17 at 09:00; Status Future Hold Aspirin (Aspirin) 81 mg DAILY PO Last administered on 01/24/17 08:46; Admin Dose 81 MG; Start 01/18/17 at 09:00 Carvedilol (Coreg) 3.125 mg BID PO Last administered on 01/24/17 08:46; Admin Dose 3.125 MG; Start 01/17/17 at 21:00 EZETIMIBE (Zetia) 10 mg DAILY PO Last administered on 01/24/17 09:01; Admin Dose 10 MG; Start 01/18/17 at 09:00 Gabapentin (Neurontin) 300 mg BID PO Last administered on 01/24/17 08:46; Admin Dose 300 MG; Start 01/17/17 at 21:00 Loratadine (Claritin) 10 mg DAILY PO Last administered on 01/24/17 08:46; Admin Dose 10 MG; Start 01/18/17 at 09:00 Montelukast Sodium (Singulair) 10 mg QHS PO Last administered on 01/23/17 20:35 ; Admin Dose 10 MG; Start 01/17/17 at 21:00 Nitroglycerin (Nitroglycerin (Sl Tab) 0.4 Mg) 1 tab Q5M PRN SL ANGINA; Start at 15:00 Pramipexole (Mirapex) 0.5 mg HS PO Last administered on 01/23/17 22:16; Admin Dose 0.5 MG; Start 01/17/17 at 21:00 Tramadol HCl (Ultram) 50 mg BID PRN PO PAIN Last administered on 01/23/17 16:04 ; Admin Dose 50 MG; Start 01/17/17 at 15:00 Diagnostic Test (Pha) (Accu-Chek) 1 ea 02 XX Last administered on 01/24/17 02: 30; Admin Dose 1 EA; Start 01/18/17 at 02:00 Atorvastatin Calcium (Lipitor) 20 mg DAILY@21 PO Last administered on 01/23/17 20:35; Admin Dose 20 MG; Start 01/17/17 at 21:00 Miscellaneous Information 1 ea NOTE XX ; Start 01/17/17 at 16:30 Glucose (Glutose) 15 gm Q15M PRN PO DECREASED GLUCOSE; Start 01/17/17 at 16:30 Glucose (Glutose) 22.5 gm Q15M PRN PO DECREASED GLUCOSE; Start 01/17/17 at 16: 30 Dextrose (D50w Syringe) 25 ml Q15M PRN IV DECREASED GLUCOSE Last administered on 01/18/17 06:06; Admin Dose 25 ML; Start 01/17/17 at 16:30 Dextrose (D50w Syringe) 50 ml Q15M PRN IV DECREASED GLUCOSE Last administered on 01/18/17 11:11; Admin Dose 50 ML; Start 3/31/17 at 16:30 Glucagon (Glucagen) 1 mg Q15M PRN IM DECREASED GLUCOSE; Start 01/17/17 at 16:30 Glucose 15 gm 15 gm Q15M PRN BUCCAL DECREASED GLUCOSE; Start 01/17/17 at 16:30 Ondansetron HCl/ Dextrose (Zofran Inj/D5W) 54 ml @ 108 mls/hr Q6H PRN IV NAUSEA AND/OR VOMITING Last administered on 01/18/17 01:13; Admin Dose 108 MLS/ HR; Start 01/17/17 at 23:30 Famotidine (Pepcid) 20 mg DAILY PO Last administered on 01/24/17 08:46; Admin Dose 20 MG; Start 01/20/17 at 12:30 Insulin Glargine (Lantus) 10 unit DAILY@20 SC Last administered on 01/23/17 23: 19; Admin Dose 10 UNIT; Start 01/23/17 at 22:00 Methylprednisolone Sodium Succinate (Solu-Medrol) 40 mg Q12 IV Last administered on 01/24/17 12:32; Admin Dose 40 MG; Start 01/24/17 at 10:00 Insulin Human NPH (Humulin N) 10 unit BID SC Last administered on 01/24/17 12: 34; Admin Dose 10 UNIT; Start 01/24/17 at 10:00 VERONICA SOTO DO Jan 24, 2017 14:31
[2017-01-24 14:43] LABS: % CRYOCRIT NONE DETECTED (NONE DETECTED)
[2017-01-24 19:55] VITALS: BP 137/63; RESP 18
[2017-01-24] MEDS: INSULIN GLARGINE [LANtus] 3 ML PEN SC SCH (20:14)
[2017-01-24] MEDS: PRAMIPEXOLE 0.25 MG TAB PO SCH (20:15)
[2017-01-24] MEDS: ATORVASTATIN 20 MG TAB PO SCH (20:15)
[2017-01-24] MEDS: MONTELUKAST 10 MG TAB PO SCH (20:19)
[2017-01-24] MEDS: ZOLPIDEM 5 MG TAB PO PRN (23:28)
[2017-01-25] MEDS: ALBUTEROL HFA 8 GM INHALER INH SCH ×6 (01:00→21:11)
[2017-01-25] MEDS: ACCU-CHEK XX SCH (02:06)
[2017-01-25 05:35] LABS: ADD SCAN DIFF NO
[2017-01-25 05:36] LABS: BASOPHILS % 0.2 % (0.0-2.0); EOSINOPHILS % 0.1 % (0.0-7.0); HEMOGLOBIN 10.5 g/dl (12.0-16.0); LYMPHOCYTES % 8.6 % (15.0-51.0); MEAN CORPUSCULAR HGB CONC 31.8 g/dl (32.0-37.0); MEAN CORPUSCULAR VOLUME 91.2 fl (82.0-101.0); MEAN PLATELET VOLUME 10.7 fl (7.4-10.4); MONOCYTE # 0.7 10^3/ul (0.3-0.9); MONOCYTES % 6.1 % (0.0-11.0); NEUTROPHIL # 9.8 10^3/ul (1.6-7.5); NEUTROPHILS % 83.4 % (39.0-77.0); PLATELET COUNT 287 10^3/UL (140-415); RED BLOOD COUNT 3.62 10^6/ul (4.20-5.40); RED CELL DISTRIBUTION WIDTH 12.5 % (11.5-14.5); WHITE BLOOD COUNT 11.7 10^3/ul (4.8-10.8)
[2017-01-25 05:50] LABS: POTASSIUM 4.8 mmol/L (3.5-5.1)
[2017-01-25 05:52] LABS: CREATININE 2.27 mg/dl (0.44-1.00)
[2017-01-25 05:53] LABS: CALCIUM 9.4 mg/dl (8.4-10.2)
[2017-01-25 05:55] LABS: MAGNESIUM 1.4 mg/dl (1.7-2.5); PHOSPHORUS 3.3 mg/dl (2.5-4.9)
[2017-01-25] MEDS: LEVOTHYROXINE 112 MCG TAB PO SCH (07:34)
[2017-01-25 08:06] VITALS: BP 150/70; RESP 20
[2017-01-25] MEDS: INSULIN ASPART [NOVOLOG] 3 ML PEN SC SCH ×7 (08:27→20:16)
[2017-01-25] MEDS: NPH, HUMAN INSULIN ISOPHANE 3ML VIAL SC SCH ×2 (08:28→20:59)
[2017-01-25] MEDS: METHYLPREDNISOLONE 40 MG INJ IV SCH ×2 (08:32→20:57)
[2017-01-25] MEDS: ASPIRIN 81 MG TAB PO SCH (08:33)
[2017-01-25] MEDS: FAMOTIDINE 20 MG TAB PO SCH (08:33)
[2017-01-25] MEDS: GABAPENTIN 300 MG CAP PO SCH ×2 (08:33→21:01)
[2017-01-25] MEDS: LORATADINE 10 MG TAB PO SCH (08:33)
[2017-01-25] MEDS: EZETIMIBE 10 MG TAB PO SCH (08:33)
--- NOTE | 2017-01-25 09:17 | PN ---
Date/Time of Note Date/Time of Note DATE: 01/25/17 TIME: 09:16 Assessment/Plan VTE Prophylaxis VTE Prophylaxis Intervention: heparin, SCD's Lines/Catheters IV C[facility] Type (from [facility] Central Line Central line still needed: Yes Urinary Cath still in place: No Assessment/Plan Chief Complaint/Hosp Course 1. Acute kidney injury requiring hemodialysis. Etiology could be acute tubular necrosis versus induced by drugs including ARB or NSAIDs. Continue hemodialysis as per nephrology. The patient's renal status improving slowly. Has been off hemodialysis for the past few days. 2. Hyperkalemia secondary to acute kidney injury. Currently resolved. 3. Type 2 diabetes mellitus. Hemoglobin A1c is 7.7. Continue sliding scale insulin along with Lantus insulin. Adjust sliding scale to obtain optimal blood sugar control. 4. Pulmonary hypertension. PA pressure of 49 mmHg as per 2-D echocardiogram. Continue supplemental oxygen. 5. Dyslipidemia. Continue statins. 6. Acute respiratory failure. Hypoxic, most probably secondary to volume overload as well as a combination of diastolic heart failure. Continue inhaled bronchodilators. Pulmonary following. 7. Hypothyroidism. Continue Synthroid. 8. Morbid obesity. BMI of 46.0 kg/m sq. Weight reduction will be advised. 9. Fluid, electrolytes, and nutrition. Carbohydrate controlled renal diet. 10. Deep venous thrombosis prophylaxis. Bilateral sequential compression devices. 11. Gastrointestinal prophylaxis. H2 receptor blockers. 12. Plan. Replete magnesium. Await clearance from nephrology before discharge. Obtain physical therapy evaluation. Case discussed with Dr. Torres. Problems: Subjective 24 Hr Interval Summary Free Text/Dictation Blood sugars running high, most probably secondary to underlying steroid use. Exam/Review of Systems Vital Signs Vitals Vital Signs Date Time Temp Pulse Resp B/P Pulse Ox O2 Delivery O2 Flow Rate FiO2 01/25/17 08:06 97.5 62 20 150/70 97 01/25/17 05:54 2.0 01/24/17 21:47 Nasal Cannula 01/23/17 20:56 21 Intake and Output 01/24/17 01/24/17 01/25/17 15:00 23:00 07:00 Intake Total 820 ml 480 ml Output Total 800 ml Balance 820 ml -320 ml Exam GENERAL: This is a morbidly obese female lying in bed in no apparent distress. HEENT: Head normocephalic and atraumatic. Eyes: Anicteric sclerae. Conjunctivae clear. ENT: Nasal septum is midline. Oral mucosa is dry. NECK: Short and obese. Unable to visualize any neck veins. CARDIAC: Regular rate and rhythm. No murmurs. RESPIRATORY: Diminished breath sounds bilaterally with bilateral rales and occasional wheezing. ABDOMEN: Obese. Soft. Nontender. Bowel sounds hypoactive in all 4 quadrants. GENITOURINARY: Deferred. EXTREMITIES: No cyanosis, no clubbing. B/L LE edema. Peripheral pulses palpable. NEUROLOGIC: The patient is awake, alert, and oriented. Cranial nerves are grossly intact. Results Result Diagram: 01/25/17 0420 01/25/17 0420 Results 24 hrs Laboratory Tests Test 01/24/17 12:29 01/24/17 17:23 01/24/17 20:10 01/24/17 21:15 Bedside Glucose 291 H 345 H 449 *H 499 *H Test 01/25/17 02:00 01/25/17 04:20 01/25/17 08:15 Bedside Glucose 351 H 240 H White Blood Count 11.7 #H Red Blood Count 3.62 L Hemoglobin 10.5 L Hematocrit 33.0 L Mean Corpuscular Volume 91.2 Mean Corpuscular Hemoglobin 29.0 Mean Corpuscular Hemoglobin Concent 31.8 L Red Cell Distribution Width 12.5 Platelet Count 287 # Mean Platelet Volume 10.7 H Neutrophils % 83.4 H Lymphocytes % 8.6 L Monocytes % 6.1 Eosinophils % 0.1 Basophils % 0.2 Nucleated Red Blood Cells % 0.0 Neutrophils # 9.8 H Lymphocytes # 1.0 Monocytes # 0.7 Eosinophils # 0.0 Basophils # 0.0 Nucleated Red Blood Cells # 0.0 Sodium Level 143 Potassium Level 4.8 Chloride Level 103 Carbon Dioxide Level 24 Anion Gap 21 H Blood Urea Nitrogen 60 H Creatinine 2.27 H Glucose Level 278 H Calcium Level 9.4 Phosphorus Level 3.3 Magnesium Level 1.4 L Medications Medications Current Medications Amlodipine Besylate (Norvasc) 10 mg DAILY PO Last administered on 01/18/17 09: 20; Admin Dose 10 MG; Start 01/18/17 at 09:00; Status Future Hold Aspirin (Aspirin) 81 mg DAILY PO Last administered on 01/25/17 08:33; Admin Dose 81 MG; Start 01/18/17 at 09:00 Carvedilol (Coreg) 3.125 mg BID PO Last administered on 01/25/17 08:33; Admin Dose 3.125 MG; Start 01/17/17 at 21:00 EZETIMIBE (Zetia) 10 mg DAILY PO Last administered on 01/25/17 08:33; Admin Dose 10 MG; Start 01/18/17 at 09:00 Gabapentin (Neurontin) 300 mg BID PO Last administered on 01/25/17 08:33; Admin Dose 300 MG; Start 01/17/17 at 21:00 Loratadine (Claritin) 10 mg DAILY PO Last administered on 01/25/17 08:33; Admin Dose 10 MG; Start 01/18/17 at 09:00 Montelukast Sodium (Singulair) 10 mg QHS PO Last administered on 01/24/17 20:19 ; Admin Dose 10 MG; Start 01/17/17 at 21:00 Nitroglycerin (Nitroglycerin (Sl Tab) 0.4 Mg) 1 tab Q5M PRN SL ANGINA; Start at 15:00 Pramipexole (Mirapex) 0.5 mg HS PO Last administered on 01/24/17 20:15; Admin Dose 0.5 MG; Start 01/17/17 at 21:00 Tramadol HCl (Ultram) 50 mg BID PRN PO PAIN Last administered on 01/23/17 16:04 ; Admin Dose 50 MG; Start 01/17/17 at 15:00 Diagnostic Test (Pha) (Accu-Chek) 1 ea 02 XX Last administered on 01/25/17 02: 06; Admin Dose 1 EA; Start 01/18/17 at 02:00 Atorvastatin Calcium (Lipitor) 20 mg DAILY@21 PO Last administered on 01/24/17 20:15; Admin Dose 20 MG; Start 01/17/17 at 21:00 Miscellaneous Information 1 ea NOTE XX ; Start 01/17/17 at 16:30 Glucose (Glutose) 15 gm Q15M PRN PO DECREASED GLUCOSE; Start 01/17/17 at 16:30 Glucose (Glutose) 22.5 gm Q15M PRN PO DECREASED GLUCOSE; Start 01/17/17 at 16: 30 Dextrose (D50w Syringe) 25 ml Q15M PRN IV DECREASED GLUCOSE Last administered on 01/18/17 06:06; Admin Dose 25 ML; Start 01/17/17 at 16:30 Dextrose (D50w Syringe) 50 ml Q15M PRN IV DECREASED GLUCOSE Last administered on 01/18/17 11:11; Admin Dose 50 ML; Start 01/17/17 at 16:30 Glucagon (Glucagen) 1 mg Q15M PRN IM DECREASED GLUCOSE; Start 01/17/17 at 16:30 Glucose 15 gm 15 gm Q15M PRN BUCCAL DECREASED GLUCOSE; Start 01/17/17 at 16:30 Ondansetron HCl/ Dextrose (Zofran Inj/D5W) 54 ml @ 108 mls/hr Q6H PRN IV NAUSEA AND/OR VOMITING Last administered on 01/18/17 01:13; Admin Dose 108 MLS/ HR; Start 01/17/17 at 23:30 Famotidine (Pepcid) 20 mg DAILY PO Last administered on 01/25/17 08:33; Admin Dose 20 MG; Start 01/20/17 at 12:30 Insulin Glargine (Lantus) 10 unit DAILY@20 SC Last administered on 01/24/17 20: 14; Admin Dose 10 UNIT; Start 01/23/17 at 22:00 Methylprednisolone Sodium Succinate (Solu-Medrol) 40 mg Q12 IV Last administered on 01/25/17 08:32; Admin Dose 40 MG; Start 01/24/17 at 10:00 Insulin Human NPH (Humulin N) 10 unit BID SC Last administered on 01/25/17 08: 28; Admin Dose 10 UNIT; Start 01/24/17 at 10:00 ZOEY PAINTING NP Jan 25, 2017 09:17
[2017-01-25] MEDS: ALBUTEROL/IPRATROPIUM (NEB) 3 ML AMP HHN SCH ×4 (09:47→20:26)
[2017-01-25] MEDS ORDERED: MAGNESIUM SULFATE 3 GM in SOD CHLORIDE 0.9% 100 ML IVPB ONE (10:00)
[2017-01-25] MEDS: HEPARIN 5,000 UNIT/0.5 ML VIAL SC SCH ×2 (10:25→21:00)
--- NOTE | 2017-01-25 10:55 | CONS ---
Date/Time of Note Date/Time of Note DATE: 01/25/17 TIME: 10:53 Consult Date/Type/Reason Admit Date/Time Jan 17, 2017 at 12:29 Type of Consultation: nephro Subjective The patient on hd 4 days ago. The patient's urinary output is improving. No other acute events noted. No vomitus, hematemesis, hematochezia. OBJECTIVE: HEENT: Head is normocephalic. NECK: Supple. HEART: Regular rate. LUNGS: Show diminished breath sounds at the base. ABDOMEN: Soft, nontender to palpation, no rebound or guarding. EXTREMITIES: Negative for clubbing, cyanosis, no edema. DERMATOLOGIC: No rashes. MUSCULOSKELETAL: No joint effusions. NEUROLOGIC: No change in exam. Objective Vital Signs Date Time Temp Pulse Resp B/P Pulse Ox O2 Delivery O2 Flow Rate FiO2 01/25/17 09:48 69 20 89 Nasal Cannula 2.0 01/25/17 08:06 97.5 150/70 01/23/17 20:56 21 Intake and Output 01/24/17 01/24/17 01/25/17 15:00 23:00 07:00 Intake Total 820 ml 480 ml Output Total 800 ml Balance 820 ml -320 ml Results/Medications Result Diagram: 01/25/17 0420 01/25/17 0420 Results 24 hrs Laboratory Tests Test 01/24/17 12:29 01/24/17 17:23 01/24/17 20:10 01/24/17 21:15 Bedside Glucose 291 H 345 H 449 *H 499 *H Test 01/25/17 02:00 01/25/17 04:20 01/25/17 08:15 Bedside Glucose 351 H 240 H White Blood Count 11.7 #H Red Blood Count 3.62 L Hemoglobin 10.5 L Hematocrit 33.0 L Mean Corpuscular Volume 91.2 Mean Corpuscular Hemoglobin 29.0 Mean Corpuscular Hemoglobin Concent 31.8 L Red Cell Distribution Width 12.5 Platelet Count 287 # Mean Platelet Volume 10.7 H Neutrophils % 83.4 H Lymphocytes % 8.6 L Monocytes % 6.1 Eosinophils % 0.1 Basophils % 0.2 Nucleated Red Blood Cells % 0.0 Neutrophils # 9.8 H Lymphocytes # 1.0 Monocytes # 0.7 Eosinophils # 0.0 Basophils # 0.0 Nucleated Red Blood Cells # 0.0 Sodium Level 143 Potassium Level 4.8 Chloride Level 103 Carbon Dioxide Level 24 Anion Gap 21 H Blood Urea Nitrogen 60 H Creatinine 2.27 H Glucose Level 278 H Calcium Level 9.4 Phosphorus Level 3.3 Magnesium Level 1.4 L Medications Current Medications Amlodipine Besylate (Norvasc) 10 mg DAILY PO Last administered on 01/18/17 09: 20; Admin Dose 10 MG; Start 01/18/17 at 09:00; Status Future Hold Aspirin (Aspirin) 81 mg DAILY PO Last administered on 01/25/17 08:33; Admin Dose 81 MG; Start 01/18/17 at 09:00 Carvedilol (Coreg) 3.125 mg BID PO Last administered on 01/25/17 08:33; Admin Dose 3.125 MG; Start 01/17/17 at 21:00 EZETIMIBE (Zetia) 10 mg DAILY PO Last administered on 01/25/17 08:33; Admin Dose 10 MG; Start 01/18/17 at 09:00 Gabapentin (Neurontin) 300 mg BID PO Last administered on 01/25/17 08:33; Admin Dose 300 MG; Start 01/17/17 at 21:00 Loratadine (Claritin) 10 mg DAILY PO Last administered on 01/25/17 08:33; Admin Dose 10 MG; Start 01/18/17 at 09:00 Montelukast Sodium (Singulair) 10 mg QHS PO Last administered on 01/24/17 20:19 ; Admin Dose 10 MG; Start 01/17/17 at 21:00 Nitroglycerin (Nitroglycerin (Sl Tab) 0.4 Mg) 1 tab Q5M PRN SL ANGINA; Start at 15:00 Pramipexole (Mirapex) 0.5 mg HS PO Last administered on 01/24/17 20:15; Admin Dose 0.5 MG; Start 01/17/17 at 21:00 Tramadol HCl (Ultram) 50 mg BID PRN PO PAIN Last administered on 01/23/17 16:04 ; Admin Dose 50 MG; Start 01/17/17 at 15:00 Diagnostic Test (Pha) (Accu-Chek) 1 ea 02 XX Last administered on 01/25/17 02: 06; Admin Dose 1 EA; Start 01/18/17 at 02:00 Atorvastatin Calcium (Lipitor) 20 mg DAILY@21 PO Last administered on 01/24/17 20:15; Admin Dose 20 MG; Start 01/17/17 at 21:00 Miscellaneous Information 1 ea NOTE XX ; Start 01/17/17 at 16:30 Glucose (Glutose) 15 gm Q15M PRN PO DECREASED GLUCOSE; Start 01/17/17 at 16:30 Glucose (Glutose) 22.5 gm Q15M PRN PO DECREASED GLUCOSE; Start 01/17/17 at 16: 30 Dextrose (D50w Syringe) 25 ml Q15M PRN IV DECREASED GLUCOSE Last administered on 01/18/17 06:06; Admin Dose 25 ML; Start 01/17/17 at 16:30 Dextrose (D50w Syringe) 50 ml Q15M PRN IV DECREASED GLUCOSE Last administered on 01/18/17 11:11; Admin Dose 50 ML; Start 01/17/17 at 16:30 Glucagon (Glucagen) 1 mg Q15M PRN IM DECREASED GLUCOSE; Start 01/17/17 at 16:30 Glucose 15 gm 15 gm Q15M PRN BUCCAL DECREASED GLUCOSE; Start 01/17/17 at 16:30 Ondansetron HCl/ Dextrose (Zofran Inj/D5W) 54 ml @ 108 mls/hr Q6H PRN IV NAUSEA AND/OR VOMITING Last administered on 01/18/17 01:13; Admin Dose 108 MLS/ HR; Start 01/17/17 at 23:30 Famotidine (Pepcid) 20 mg DAILY PO Last administered on 01/25/17 08:33; Admin Dose 20 MG; Start 01/20/17 at 12:30 Insulin Glargine (Lantus) 10 unit DAILY@20 SC Last administered on 01/24/17 20: 14; Admin Dose 10 UNIT; Start 01/23/17 at 22:00 Insulin Human NPH 10 unit 10 unit BID SC Last administered on 01/25/17 08:28; Admin Dose 10 UNIT; Start 01/24/17 at 10:00 Magnesium Sulfate/ Sodium Chloride (Magnesium Sulfate/NS) 106 ml @ 35.333 mls/ hr ONCE ONCE IVPB Last administered on 01/25/17 10:16; Admin Dose 35.333 MLS/ HR; Start 01/25/17 at 10:00; Stop 01/25/17 at 12:59 Heparin Sodium (Porcine) (Heparin (5000 Units/0.5 ml)) 5,000 unit BID SC Last administered on 01/25/17t 10:25; Admin Dose 5,000 UNIT; Start 01/25/17 at 10:00 Methylprednisolone Sodium Succinate (Solu-Medrol) 20 mg Q12 IV ; Start 01/25/17 at 21:00 Assessment/Plan Chief Complaint/Hosp Course ASSESSMENT AND PLAN: 1. Nonoliguric acute kidney injury on top of chronic kidney disease with previous baseline creatinine of 1.0 mg/dL. Etiology of acute kidney injury is most likely due to acute tubular necrosis. There is low suspicion for acute glomerulonephritis. The patient's serological workup has been negative to date. The patient's GOLDY complements and anti-double stranded DNA rheumatoid factor are negative. Patient's hepatitis panel is negative. The patient's SPEP and UPEP are essentially negative. sp hemodialysis and has had 4 sessions. The patient's urinary output has improved. Appears to be in recovery. We will continue to hold dialysis and monitor for signs of renal recovery. monitor labs. 2. Hypomagnesemia, repleted with magnesium sulfate. 3. Metabolic acidosis secondary to acute kidney injury, resolved. 4. Mineral bone disorder. Monitor calcium and phosphorus levels. 5. Anemia. We will monitor H and H levels. No need for Epogen at this time. 6. Dyslipidemia. Continue statin therapy. 7. Congestive heart failure. The patient is clinically improved. Continue current medical management. 8. Hypothyroidism. Continue Synthroid. 9. Diabetes, continue Accu-Cheks and insulin sliding scale. elevated sugars noted likely sec to steroids. 10. Pulmonary hypertension. Continue current medical management. Problems: LINDSEY VAN MD Jan 25, 2017 10:55
[2017-01-25] MEDS ORDERED: INSULIN GLARGINE [LANtus] 3 ML PEN SC ONE (18:00)
[2017-01-25 19:56] VITALS: BP 128/59; RESP 20
[2017-01-25] MEDS: INSULIN GLARGINE [LANtus] 3 ML PEN SC SCH (20:17)
[2017-01-25] MEDS: MONTELUKAST 10 MG TAB PO SCH (21:01)
[2017-01-25] MEDS: PRAMIPEXOLE 0.25 MG TAB PO SCH (21:01)
[2017-01-25] MEDS: ATORVASTATIN 20 MG TAB PO SCH (21:01)
[2017-01-25] MEDS ORDERED: NPH, HUMAN INSULIN ISOPHANE 3ML VIAL SC ONE (21:30)
[2017-01-25] MEDS: ZOLPIDEM 5 MG TAB PO PRN (22:01)
[2017-01-26] MEDS: ALBUTEROL HFA 8 GM INHALER INH SCH ×6 (01:00→21:43)
[2017-01-26] MEDS: ACCU-CHEK XX SCH (02:00)
[2017-01-26 05:31] LABS: ADD SCAN DIFF NO; BASOPHILS % 0.2 % (0.0-2.0); HEMATOCRIT 31.3 % (37.0-47.0); HEMOGLOBIN 10.2 g/dl (12.0-16.0); LYMPHOCYTES # 0.9 10^3/ul (0.8-2.9); LYMPHOCYTES % 7.2 % (15.0-51.0); MEAN CORPUSCULAR HEMOGLOBIN 29.5 pg (29.0-33.0); MEAN CORPUSCULAR HGB CONC 32.6 g/dl (32.0-37.0); MEAN CORPUSCULAR VOLUME 90.5 fl (82.0-101.0); MEAN PLATELET VOLUME 10.5 fl (7.4-10.4); MONOCYTE # 0.5 10^3/ul (0.3-0.9); MONOCYTES % 3.9 % (0.0-11.0); NEUTROPHIL # 10.8 10^3/ul (1.6-7.5); NEUTROPHILS % 87.5 % (39.0-77.0); PLATELET COUNT 263 10^3/UL (140-415); RED BLOOD COUNT 3.46 10^6/ul (4.20-5.40); RED CELL DISTRIBUTION WIDTH 12.6 % (11.5-14.5); WHITE BLOOD COUNT 12.3 10^3/ul (4.8-10.8)
[2017-01-26 05:49] LABS: POTASSIUM 5.1 mmol/L (3.5-5.1)
[2017-01-26 05:51] LABS: CREATININE 1.71 mg/dl (0.44-1.00)
[2017-01-26 05:52] LABS: CALCIUM 9.3 mg/dl (8.4-10.2)
[2017-01-26 06:12] LABS: MAGNESIUM 1.7 mg/dl (1.7-2.5); PHOSPHORUS 3.8 mg/dl (2.5-4.9)
[2017-01-26] MEDS: LEVOTHYROXINE 112 MCG TAB PO SCH (06:33)
[2017-01-26 08:46] VITALS: BP 139/64; RESP 18
[2017-01-26] MEDS: INSULIN ASPART [NOVOLOG] 3 ML PEN SC SCH ×7 (09:24→21:40)
[2017-01-26] MEDS: METHYLPREDNISOLONE 40 MG INJ IV SCH (09:28)
[2017-01-26] MEDS: NPH, HUMAN INSULIN ISOPHANE 3ML VIAL SC SCH (09:29)
[2017-01-26] MEDS: HEPARIN 5,000 UNIT/0.5 ML VIAL SC SCH ×2 (09:31→21:39)
[2017-01-26] MEDS: ASPIRIN 81 MG TAB PO SCH (09:32)
[2017-01-26] MEDS: FAMOTIDINE 20 MG TAB PO SCH (09:32)
[2017-01-26] MEDS: GABAPENTIN 300 MG CAP PO SCH ×2 (09:32→21:44)
[2017-01-26] MEDS: LORATADINE 10 MG TAB PO SCH (09:32)
[2017-01-26] MEDS: EZETIMIBE 10 MG TAB PO SCH (09:32)
[2017-01-26] MEDS: ALBUTEROL/IPRATROPIUM (NEB) 3 ML AMP HHN SCH ×4 (10:08→20:40)
--- NOTE | 2017-01-26 10:12 | PN ---
Date/Time of Note Date/Time of Note DATE: 01/26/17 TIME: 10:10 Assessment/Plan VTE Prophylaxis VTE Prophylaxis Intervention: heparin Lines/Catheters [facility]from [facility] Saline Lock Urinary Cath still in place: No Assessment/Plan Chief Complaint/Hosp Course 1. Acute kidney injury requiring hemodialysis. Etiology could be acute tubular necrosis versus induced by drugs including ARB or NSAIDs. Continue hemodialysis as per nephrology. The patient's renal status improving slowly. Has been off hemodialysis for the past few days. 2. Hyperkalemia secondary to acute kidney injury. Currently resolved. 3. Type 2 diabetes mellitus. Hemoglobin A1c is 7.7. Continue sliding scale insulin along with Lantus insulin. Adjust sliding scale to obtain optimal blood sugar control. 4. Pulmonary hypertension. PA pressure of 49 mmHg as per 2-D echocardiogram. Continue supplemental oxygen. 5. Dyslipidemia. Continue statins. 6. Acute respiratory failure. Hypoxic, most probably secondary to volume overload as well as a combination of diastolic heart failure. Continue inhaled bronchodilators. Pulmonary following. 7. Hypothyroidism. Continue Synthroid. 8. Morbid obesity. BMI of 46.0 kg/m sq. Weight reduction will be advised. 9. Fluid, electrolytes, and nutrition. Carbohydrate controlled renal diet. 10. Deep venous thrombosis prophylaxis. Subcutaneous heparin. 11. Gastrointestinal prophylaxis. H2 receptor blockers. 12. Plan. Await clearance from nephrology before discharge. Stop IV steroids. Adjust insulin to obtain optimal blood sugar control. Case discussed with Dr. Torres. Problems: Subjective 24 Hr Interval Summary Free Text/Dictation Sugars have been running high. Exam/Review of Systems Vital Signs Vitals Vital Signs Date Time Temp Pulse Resp B/P Pulse Ox O2 Delivery O2 Flow Rate FiO2 01/26/17 08:46 98.3 62 18 139/64 96 01/26/17 01:36 2.0 01/25/17 20:27 Nasal Cannula 01/23/17 20:56 21 Intake and Output 01/25/17 01/25/17 01/26/17 15:00 23:00 07:00 Intake Total 106 ml 1040 ml 950 ml Output Total 400 ml 900 ml Balance 106 ml 640 ml 50 ml Exam GENERAL: This is a morbidly obese female lying in bed in no apparent distress. HEENT: Head normocephalic and atraumatic. Eyes: Anicteric sclerae. Conjunctivae clear. ENT: Nasal septum is midline. Oral mucosa is dry. NECK: Short and obese. Unable to visualize any neck veins. CARDIAC: Regular rate and rhythm. No murmurs. RESPIRATORY: Diminished breath sounds bilaterally with bilateral rales and occasional wheezing. ABDOMEN: Obese. Soft. Nontender. Bowel sounds hypoactive in all 4 quadrants. GENITOURINARY: Deferred. EXTREMITIES: No cyanosis, no clubbing. B/L LE edema. Peripheral pulses palpable. NEUROLOGIC: The patient is awake, alert, and oriented. Cranial nerves are grossly intact. Results Result Diagram: 01/26/17 0425 01/26/17 0425 Results 24 hrs Laboratory Tests Test 01/25/17 12:29 01/25/17 17:16 01/25/17 17:18 01/25/17 18:09 Bedside Glucose 288 H 434 *H 430 *H Glucose Level 457 #*H Test 01/25/17 18:24 01/25/17 20:09 01/25/17 22:35 01/26/17 02:13 Bedside Glucose 422 *H 430 *H 366 H 317 H Test 01/26/17 04:25 01/26/17 08:15 White Blood Count 12.3 H Red Blood Count 3.46 L Hemoglobin 10.2 L Hematocrit 31.3 L Mean Corpuscular Volume 90.5 Mean Corpuscular Hemoglobin 29.5 Mean Corpuscular Hemoglobin Concent 32.6 Red Cell Distribution Width 12.6 Platelet Count 263 Mean Platelet Volume 10.5 H Neutrophils % 87.5 H Lymphocytes % 7.2 L Monocytes % 3.9 Eosinophils % 0.0 Basophils % 0.2 Nucleated Red Blood Cells % 0.0 Neutrophils # 10.8 H Lymphocytes # 0.9 Monocytes # 0.5 Eosinophils # 0.0 Basophils # 0.0 Nucleated Red Blood Cells # 0.0 Sodium Level 141 Potassium Level 5.1 Chloride Level 103 Carbon Dioxide Level 26 Anion Gap 17 H Blood Urea Nitrogen 51 H Creatinine 1.71 H Glucose Level 296 #H Calcium Level 9.3 Phosphorus Level 3.8 Magnesium Level 1.7 Bedside Glucose 254 H Medications Medications Current Medications Amlodipine Besylate (Norvasc) 10 mg DAILY PO Last administered on 01/18/17 09: 20; Admin Dose 10 MG; Start 01/18/17 at 09:00; Status Future Hold Aspirin (Aspirin) 81 mg DAILY PO Last administered on 01/26/17 09:32; Admin Dose 81 MG; Start 01/18/17 at 09:00 Carvedilol (Coreg) 3.125 mg BID PO Last administered on 01/26/17 09:33; Admin Dose 3.125 MG; Start 01/17/17 at 21:00 EZETIMIBE (Zetia) 10 mg DAILY PO Last administered on 01/26/17 09:32; Admin Dose 10 MG; Start 01/18/17 at 09:00 Gabapentin (Neurontin) 300 mg BID PO Last administered on 01/26/17 09:32; Admin Dose 300 MG; Start 01/17/17 at 21:00 Loratadine (Claritin) 10 mg DAILY PO Last administered on 01/26/17 09:32; Admin Dose 10 MG; Start 01/18/17 at 09:00 Montelukast Sodium (Singulair) 10 mg QHS PO Last administered on 01/25/17 21:01 ; Admin Dose 10 MG; Start 01/17/17 at 21:00 Nitroglycerin (Nitroglycerin (Sl Tab) 0.4 Mg) 1 tab Q5M PRN SL ANGINA; Start at 15:00 Pramipexole (Mirapex) 0.5 mg HS PO Last administered on 01/25/17 21:01; Admin Dose 0.5 MG; Start 01/17/17 at 21:00 Tramadol HCl (Ultram) 50 mg BID PRN PO PAIN Last administered on 01/23/17 16:04 ; Admin Dose 50 MG; Start 01/17/17 at 15:00 Diagnostic Test (Pha) (Accu-Chek) 1 ea 02 XX Last administered on 01/25/17 02: 06; Admin Dose 1 EA; Start 01/18/17 at 02:00 Atorvastatin Calcium (Lipitor) 20 mg DAILY@21 PO Last administered on 01/25/17 21:01; Admin Dose 20 MG; Start 01/17/17 at 21:00 Miscellaneous Information 1 ea NOTE XX ; Start 01/17/17 at 16:30 Glucose (Glutose) 15 gm Q15M PRN PO DECREASED GLUCOSE; Start 01/17/17 at 16:30 Glucose (Glutose) 22.5 gm Q15M PRN PO DECREASED GLUCOSE; Start 01/17/17 at 16: 30 Dextrose (D50w Syringe) 25 ml Q15M PRN IV DECREASED GLUCOSE Last administered on 01/18/17 06:06; Admin Dose 25 ML; Start 01/17/17 at 16:30 Dextrose (D50w Syringe) 50 ml Q15M PRN IV DECREASED GLUCOSE Last administered on 01/18/17 11:11; Admin Dose 50 ML; Start 01/17/17 at 16:30 Glucagon (Glucagen) 1 mg Q15M PRN IM DECREASED GLUCOSE; Start 01/17/17 at 16:30 Glucose 15 gm 15 gm Q15M PRN BUCCAL DECREASED GLUCOSE; Start 01/17/17 at 16:30 Ondansetron HCl/ Dextrose (Zofran Inj/D5W) 54 ml @ 108 mls/hr Q6H PRN IV NAUSEA AND/OR VOMITING Last administered on 01/18/17 01:13; Admin Dose 108 MLS/ HR; Start 01/17/17 at 23:30 Famotidine (Pepcid) 20 mg DAILY PO Last administered on 01/26/17 09:32; Admin Dose 20 MG; Start 01/20/17 at 12:30 Insulin Glargine (Lantus) 10 unit DAILY@20 SC Last administered on 01/25/17 20: 17; Admin Dose 10 UNIT; Start 01/23/17 at 22:00 Insulin Human NPH (Humulin N) 10 unit BID SC Last administered on 01/26/17 09: 29; Admin Dose 10 UNIT; Start 01/24/17 at 10:00 Heparin Sodium (Porcine) (Heparin (5000 Units/0.5 ml)) 5,000 unit BID SC Last administered on 01/26/17 09:31; Admin Dose 5,000 UNIT; Start 01/25/17 at 10:00 Methylprednisolone Sodium Succinate (Solu-Medrol) 20 mg Q12 IV Last administered on 01/26/17 09:28; Admin Dose 20 MG; Start 01/25/17 at 21:00 ZOEY PAINTING NP Jan 26, 2017 10:12
--- NOTE | 2017-01-26 11:50 | CONS ---
Date/Time of Note Date/Time of Note DATE: 01/26/17 TIME: 11:49 Consult Date/Type/Reason Admit Date/Time Jan 17, 2017 at 12:29 Type of Consultation: nephro Subjective The patient on hd 5 days ago. The patient's urinary output is improving. No other acute events noted. No vomitus, hematemesis, hematochezia. continues to have labile sugars. OBJECTIVE: HEENT: Head is normocephalic. NECK: Supple. HEART: Regular rate. LUNGS: Show diminished breath sounds at the base. ABDOMEN: Soft, nontender to palpation, no rebound or guarding. EXTREMITIES: Negative for clubbing, cyanosis, no edema. DERMATOLOGIC: No rashes. MUSCULOSKELETAL: No joint effusions. NEUROLOGIC: No change in exam. Objective Vital Signs Date Time Temp Pulse Resp B/P Pulse Ox O2 Delivery O2 Flow Rate FiO2 01/26/17 10:11 83 20 91 Nasal Cannula 2.0 01/26/17 08:46 98.3 139/64 01/23/17 20:56 21 Intake and Output 01/25/17 01/25/17 01/26/17 15:00 23:00 07:00 Intake Total 106 ml 1040 ml 950 ml Output Total 400 ml 900 ml Balance 106 ml 640 ml 50 ml Results/Medications Result Diagram: 01/26/17 0425 01/26/17 0425 Results 24 hrs Laboratory Tests Test 01/25/17 12:29 01/25/17 17:16 01/25/17 17:18 01/25/17 18:09 Bedside Glucose 288 H 434 *H 430 *H Glucose Level 457 #*H Test 01/25/17 18:24 01/25/17 20:09 01/25/17 22:35 01/26/17 02:13 Bedside Glucose 422 *H 430 *H 366 H 317 H Test 01/26/17 04:25 01/26/17 08:15 01/26/17 11:20 White Blood Count 12.3 H Red Blood Count 3.46 L Hemoglobin 10.2 L Hematocrit 31.3 L Mean Corpuscular Volume 90.5 Mean Corpuscular Hemoglobin 29.5 Mean Corpuscular Hemoglobin Concent 32.6 Red Cell Distribution Width 12.6 Platelet Count 263 Mean Platelet Volume 10.5 H Neutrophils % 87.5 H Lymphocytes % 7.2 L Monocytes % 3.9 Eosinophils % 0.0 Basophils % 0.2 Nucleated Red Blood Cells % 0.0 Neutrophils # 10.8 H Lymphocytes # 0.9 Monocytes # 0.5 Eosinophils # 0.0 Basophils # 0.0 Nucleated Red Blood Cells # 0.0 Sodium Level 141 Potassium Level 5.1 Chloride Level 103 Carbon Dioxide Level 26 Anion Gap 17 H Blood Urea Nitrogen 51 H Creatinine 1.71 H Glucose Level 296 #H Calcium Level 9.3 Phosphorus Level 3.8 Magnesium Level 1.7 Bedside Glucose 254 H 254 H Medications Current Medications Amlodipine Besylate (Norvasc) 10 mg DAILY PO Last administered on 01/18/17 09: 20; Admin Dose 10 MG; Start 01/18/17 at 09:00; Status Future Hold Aspirin (Aspirin) 81 mg DAILY PO Last administered on 01/26/17 09:32; Admin Dose 81 MG; Start 01/18/17 at 09:00 Carvedilol (Coreg) 3.125 mg BID PO Last administered on 01/26/17 09:33; Admin Dose 3.125 MG; Start 01/17/17 at 21:00 EZETIMIBE (Zetia) 10 mg DAILY PO Last administered on 01/26/17 09:32; Admin Dose 10 MG; Start 01/18/17 at 09:00 Gabapentin (Neurontin) 300 mg BID PO Last administered on 01/26/17 09:32; Admin Dose 300 MG; Start 01/17/17 at 21:00 Loratadine (Claritin) 10 mg DAILY PO Last administered on 01/26/17 09:32; Admin Dose 10 MG; Start 01/18/17 at 09:00 Montelukast Sodium (Singulair) 10 mg QHS PO Last administered on 01/25/17 21:01 ; Admin Dose 10 MG; Start 01/17/17 at 21:00 Nitroglycerin (Nitroglycerin (Sl Tab) 0.4 Mg) 1 tab Q5M PRN SL ANGINA; Start at 15:00 Pramipexole (Mirapex) 0.5 mg HS PO Last administered on 01/25/17 21:01; Admin Dose 0.5 MG; Start 01/17/17 at 21:00 Tramadol HCl (Ultram) 50 mg BID PRN PO PAIN Last administered on 01/23/17 16:04 ; Admin Dose 50 MG; Start 01/17/17 at 15:00 Diagnostic Test (Pha) (Accu-Chek) 1 ea 02 XX Last administered on 01/25/17 02: 06; Admin Dose 1 EA; Start 01/18/17 at 02:00 Atorvastatin Calcium (Lipitor) 20 mg DAILY@21 PO Last administered on 01/25/17 21:01; Admin Dose 20 MG; Start 01/17/17 at 21:00 Miscellaneous Information 1 ea NOTE XX ; Start 01/17/17 at 16:30 Glucose (Glutose) 15 gm Q15M PRN PO DECREASED GLUCOSE; Start 01/17/17 at 16:30 Glucose (Glutose) 22.5 gm Q15M PRN PO DECREASED GLUCOSE; Start 01/17/17 at 16: 30 Dextrose (D50w Syringe) 25 ml Q15M PRN IV DECREASED GLUCOSE Last administered on 01/18/17 06:06; Admin Dose 25 ML; Start 01/17/17 at 16:30 Dextrose (D50w Syringe) 50 ml Q15M PRN IV DECREASED GLUCOSE Last administered on 01/18/17 11:11; Admin Dose 50 ML; Start 01/17/17 at 16:30 Glucagon (Glucagen) 1 mg Q15M PRN IM DECREASED GLUCOSE; Start 01/17/17 at 16:30 Glucose 15 gm 15 gm Q15M PRN BUCCAL DECREASED GLUCOSE; Start 01/17/17 at 16:30 Ondansetron HCl/ Dextrose (Zofran Inj/D5W) 54 ml @ 108 mls/hr Q6H PRN IV NAUSEA AND/OR VOMITING Last administered on 01/18/17 01:13; Admin Dose 108 MLS/ HR; Start 01/17/17 at 23:30 Famotidine (Pepcid) 20 mg DAILY PO Last administered on 01/26/17 09:32; Admin Dose 20 MG; Start 01/20/17 at 12:30 Heparin Sodium (Porcine) (Heparin (5000 Units/0.5 ml)) 5,000 unit BID SC Last administered on 01/26/17 09:31; Admin Dose 5,000 UNIT; Start 01/25/17 at 10:00 Insulin Glargine (Lantus) 12 unit DAILY@20 SC ; Start 01/26/17 at 20:00 Assessment/Plan Chief Complaint/Hosp Course ASSESSMENT AND PLAN: 1. Nonoliguric acute kidney injury on top of chronic kidney disease with previous baseline creatinine of 1.0 mg/dL. Etiology of acute kidney injury is most likely due to acute tubular necrosis. There is low suspicion for acute glomerulonephritis. The patient's serological workup has been negative to date. The patient's GOLDY complements and anti-double stranded DNA rheumatoid factor are negative. Patient's hepatitis panel is negative. The patient's SPEP and UPEP are essentially negative. sp hemodialysis and has had 4 sessions. The patient's urinary output has improved. Appears to be in recovery. We will continue to hold dialysis and monitor for signs of renal recovery. monitor labs. 2. Hypomagnesemia, repleted with magnesium sulfate. 3. Metabolic acidosis secondary to acute kidney injury, resolved. 4. Mineral bone disorder. Monitor calcium and phosphorus levels. 5. Anemia. We will monitor H and H levels. No need for Epogen at this time. 6. Dyslipidemia. Continue statin therapy. 7. Congestive heart failure. The patient is clinically improved. Continue current medical management. 8. Hypothyroidism. Continue Synthroid. 9. Diabetes, continue Accu-Cheks and insulin sliding scale. elevated sugars noted likely sec to steroids. 10. Pulmonary hypertension. Continue current medical management. Problems: LINDESY VAN MD Jan 26, 2017 11:50
[2017-01-26] MEDS ORDERED: NPH, HUMAN INSULIN ISOPHANE 3ML VIAL SC ONE (18:00)
[2017-01-26 19:49] VITALS: BP 148/74; RESP 20
[2017-01-26] MEDS: INSULIN GLARGINE [LANtus] 3 ML PEN SC SCH (21:41)
[2017-01-26] MEDS: MONTELUKAST 10 MG TAB PO SCH (21:44)
[2017-01-26] MEDS: ZOLPIDEM 5 MG TAB PO PRN (21:44)
[2017-01-26] MEDS: PRAMIPEXOLE 0.25 MG TAB PO SCH (21:44)
[2017-01-26] MEDS: ATORVASTATIN 20 MG TAB PO SCH (21:44)
[2017-01-26] MEDS ORDERED: INSULIN ASPART [NOVOLOG] 3 ML PEN SC ONE (22:00)
[2017-01-27] MEDS: ALBUTEROL HFA 8 GM INHALER INH SCH ×6 (01:00→21:15)
[2017-01-27] MEDS: ACCU-CHEK XX SCH (02:16)
[2017-01-27 04:54] LABS: ADD SCAN DIFF NO
[2017-01-27 04:57] LABS: BASOPHILS % 0.2 % (0.0-2.0); EOSINOPHILS % 0.3 % (0.0-7.0); HEMATOCRIT 31.8 % (37.0-47.0); HEMOGLOBIN 9.9 g/dl (12.0-16.0); LYMPHOCYTES # 2.2 10^3/ul (0.8-2.9); LYMPHOCYTES % 19.2 % (15.0-51.0); MEAN CORPUSCULAR HEMOGLOBIN 28.4 pg (29.0-33.0); MEAN CORPUSCULAR HGB CONC 31.1 g/dl (32.0-37.0); MEAN CORPUSCULAR VOLUME 91.4 fl (82.0-101.0); MEAN PLATELET VOLUME 10.2 fl (7.4-10.4); MONOCYTES % 8.5 % (0.0-11.0); NEUTROPHIL # 7.8 10^3/ul (1.6-7.5); NEUTROPHILS % 69.2 % (39.0-77.0); PLATELET COUNT 288 10^3/UL (140-415); RED BLOOD COUNT 3.48 10^6/ul (4.20-5.40); RED CELL DISTRIBUTION WIDTH 12.9 % (11.5-14.5); WHITE BLOOD COUNT 11.3 10^3/ul (4.8-10.8)
[2017-01-27 05:13] LABS: MAGNESIUM 1.5 mg/dl (1.7-2.5)
[2017-01-27 05:14] LABS: CREATININE 1.83 mg/dl (0.44-1.00)
[2017-01-27 05:15] LABS: CALCIUM 9.2 mg/dl (8.4-10.2)
[2017-01-27] MEDS: LEVOTHYROXINE 112 MCG TAB PO SCH (06:46)
[2017-01-27] MEDS: INSULIN ASPART [NOVOLOG] 3 ML PEN SC SCH ×7 (07:50→21:10)
[2017-01-27] MEDS: ALBUTEROL/IPRATROPIUM (NEB) 3 ML AMP HHN SCH ×4 (08:07→20:34)
[2017-01-27 08:29] VITALS: BP 133/66; RESP 18
[2017-01-27 08:32] VITALS: BP 136/74; RESP 18
[2017-01-27] MEDS: GABAPENTIN 300 MG CAP PO SCH ×2 (08:40→21:15)
[2017-01-27] MEDS: LORATADINE 10 MG TAB PO SCH (08:40)
[2017-01-27] MEDS: FAMOTIDINE 20 MG TAB PO SCH (08:40)
[2017-01-27] MEDS: ASPIRIN 81 MG TAB PO SCH (08:40)
[2017-01-27] MEDS: HEPARIN 5,000 UNIT/0.5 ML VIAL SC SCH ×2 (08:44→21:09)
[2017-01-27] MEDS: EZETIMIBE 10 MG TAB PO SCH (08:48)
[2017-01-27] MEDS ORDERED: MAGNESIUM SULFATE 2 GM/50 ML 50 ML IVPB ONE (09:00)
--- NOTE | 2017-01-27 09:18 | PN ---
DATE: 01/27/2017 SUBJECTIVE: The patient is clinically stable, continues to have episodes of shortness of breath. L ast hemodialysis approximately 5 days ago. The patient's urinary output has been improving. No oth er events noted. OBJECTIVE: VITAL SIGNS: Blood pressure 14 /74, respirations 20, pulse 88, temperature 97.7. I's and O's r eviewed. HEENT: Head is normocephalic. NECK: Supple. HEART: Regular rate. LUNGS: Show diminished breath sounds at base. ABDOMEN: Soft, nontender to palpation. No rebound or guarding. EXTREMITIES: Negative for clubbing, cyanosis. Trace edema. DERMATOLOGIC: No rashes. MUSCULOSKELETAL: No joint effusions. NEUROLOGIC: No change in exam. MEDICATIONS: The patient's medications have been reviewed. LABORATORY DATA: Showed sodium 145, potassium 4.0, chloride 105, BUN 54, creatinine 1.83, magnesium 1.5. White count 11.3, hemoglobin 9.9, hematocrit 31.8, platelet count is 288. ASSESSMENT AND PLAN: 1. Nonoliguric acute kidney injury on top of chronic kidney disease with previous baseline creatini ne 1.0 mg/dL. Etiology of acute kidney injury is secondary to acute tubular necrosis. The patient' s renal function is recovering. Last hemodialysis was approximately 5 days ago. The patient's sero logical data has been negative to date. At this point, continue to monitor renal function closely. If renal function remains stable for another 24-hours will discontinue Chano catheter. 2. Hypomagnesemia, replete with magnesium sulfate 2 grams IV x1. 3. Metabolic acidosis, resolved. 4. Mineral bone disorder, continue to monitor calcium and phosphorus levels. 5. Anemia. Continue to monitor H and H. 6. Congestive heart failure, acute. The patient is clinically improving. Continue medical managem ent. 7. Hypothyroidism. Continue Synthroid. 8. Diabetes, continue Accu-Cheks and sliding scale. 9. Pulmonary hypertension. Continue medical management. Dictated By: ELINA LAFLEUR/AYDIN Conf#: [id number] DID#: [id number]
--- NOTE | 2017-01-27 11:53 | PN ---
Date/Time of Note Date/Time of Note DATE: 01/27/17 TIME: 11:49 Assessment/Plan VTE Prophylaxis VTE Prophylaxis Intervention: heparin Lines/Catheters IV [facility] Saline Lock Urinary Cath still in place: No Assessment/Plan Chief Complaint/Hosp Course Assessment and plan 1. Acute renal failure. Cloth Laminating Supervisor following. Suspect etiology from acute tubular necrosis (ARB or NSAID). Patient has been off dialysis for several days. Continue on HD per nephrology. Renal function does appear to be improving 2. Hyperkalemia secondary to #1. Electrolytes stable. Will monitor for now. 3. Type 2 diabetes. A1c noted at 7.7. Continue basal insulin. Will adjust mealtime insulin as needed 4. Pulmonary hypertension. Patient noted with P ASP of 49 mmHg per echocardiogram. Continue on O2 as needed 5. Dyspnea. Continue on statin 6. Acute respiratory failure likely secondary to diastolic dysfunction and fluid overload. Respiratory status improved at this time. Non Destructive Testing Inspector is following 7. Hypothyroidism. Continue on Synthroid 8. Morbid obesity. Weight reduction was advised DVT prophylaxis: His heparin Disposition and plan: Continue to monitor renal panel. Nephrology following. Will follow up and monitor renal function for next 24 hours of discharge and cleared by . Consultants. Discussed plan of care with Dr. Juarez Problems: Subjective 24 Hr Interval Summary Free Text/Dictation Comfortable at present. No specific complaints Exam/Review of Systems Vital Signs Vitals Vital Signs Date Time Temp Pulse Resp B/P Pulse Ox O2 Delivery O2 Flow Rate FiO2 01/27/17 08:32 97.4 96 18 136/74 96 01/27/17 08:17 Nasal Cannula 2.0 01/23/17 20:56 21 Intake and Output 01/26/17 01/26/17 01/27/17 15:00 23:00 07:00 Intake Total 700 ml 580 ml Output Total 1100 ml Balance 700 ml -520 ml Exam General: Comfortable at present. No apparent distress. Noted to be morbidly obese Eyes: Equal round reactive to light Neck: No obvious JVD seen cardiac: Regular rate Pulmonary: Minimally diminished at lung bases GI: Obese. Soft nontender Extremities: Minimal edema noted bilateral lower extremities Skin: CDI Neurologic: AL O 4 Results Result Diagram: 01/27/17 0423 01/27/17 0423 Results 24 hrs Laboratory Tests Test 01/26/17 17:29 01/26/17 21:02 01/26/17 21:34 01/26/17 23:09 Bedside Glucose 422 *H 437 *H 450 *H 377 H Test 01/27/17 02:06 01/27/17 04:23 01/27/17 07:40 Bedside Glucose 200 101 White Blood Count 11.3 H Red Blood Count 3.48 L Hemoglobin 9.9 L Hematocrit 31.8 L Mean Corpuscular Volume 91.4 Mean Corpuscular Hemoglobin 28.4 L Mean Corpuscular Hemoglobin Concent 31.1 L Red Cell Distribution Width 12.9 Platelet Count 288 Mean Platelet Volume 10.2 Neutrophils % 69.2 Lymphocytes % 19.2 Monocytes % 8.5 Eosinophils % 0.3 Basophils % 0.2 Nucleated Red Blood Cells % 0.0 Neutrophils # 7.8 H Lymphocytes # 2.2 Monocytes # 1.0 H Eosinophils # 0.0 Basophils # 0.0 Nucleated Red Blood Cells # 0.0 Sodium Level 145 H Potassium Level 4.0 Chloride Level 105 Carbon Dioxide Level 26 Anion Gap 18 H Blood Urea Nitrogen 54 H Creatinine 1.83 H Glucose Level 159 # Calcium Level 9.2 Phosphorus Level 4.0 Magnesium Level 1.5 L Medications Medications Current Medications Amlodipine Besylate (Norvasc) 10 mg DAILY PO Last administered on 01/18/17 09: 20; Admin Dose 10 MG; Start 01/18/17 at 09:00; Status Future Hold Aspirin (Aspirin) 81 mg DAILY PO Last administered on 01/27/17 08:40; Admin Dose 81 MG; Start 01/18/17 at 09:00 Carvedilol (Coreg) 3.125 mg BID PO Last administered on 01/27/17 08:40; Admin Dose 3.125 MG; Start 01/17/17 at 21:00 EZETIMIBE (Zetia) 10 mg DAILY PO Last administered on 01/27/17 08:48; Admin Dose 10 MG; Start 01/18/17 at 09:00 Gabapentin (Neurontin) 300 mg BID PO Last administered on 01/27/17 08:40; Admin Dose 300 MG; Start 01/17/17 at 21:00 Loratadine (Claritin) 10 mg DAILY PO Last administered on 01/27/17 08:40; Admin Dose 10 MG; Start 01/18/17 at 09:00 Montelukast Sodium (Singulair) 10 mg QHS PO Last administered on 01/26/17 21:44 ; Admin Dose 10 MG; Start 01/17/17 at 21:00 Nitroglycerin (Nitroglycerin (Sl Tab) 0.4 Mg) 1 tab Q5M PRN SL ANGINA; Start at 15:00 Pramipexole (Mirapex) 0.5 mg HS PO Last administered on 01/26/17 21:44; Admin Dose 0.5 MG; Start 01/17/17 at 21:00 Tramadol HCl (Ultram) 50 mg BID PRN PO PAIN Last administered on 01/23/17 16:04 ; Admin Dose 50 MG; Start 01/17/17 at 15:00 Diagnostic Test (Pha) (Accu-Chek) 1 ea 02 XX Last administered on 01/27/17 02: 16; Admin Dose 1 EA; Start 01/18/17 at 02:00 Atorvastatin Calcium (Lipitor) 20 mg DAILY@21 PO Last administered on 01/26/17 21:44; Admin Dose 20 MG; Start 01/17/17 at 21:00 Miscellaneous Information 1 ea NOTE XX ; Start 01/17/17 at 16:30 Glucose (Glutose) 15 gm Q15M PRN PO DECREASED GLUCOSE; Start 01/17/17 at 16:30 Glucose (Glutose) 22.5 gm Q15M PRN PO DECREASED GLUCOSE; Start 01/17/17 at 16: 30 Dextrose (D50w Syringe) 25 ml Q15M PRN IV DECREASED GLUCOSE Last administered on 01/18/17 06:06; Admin Dose 25 ML; Start 01/17/17 at 16:30 Dextrose (D50w Syringe) 50 ml Q15M PRN IV DECREASED GLUCOSE Last administered on 01/18/17 11:11; Admin Dose 50 ML; Start 01/17/17 at 16:30 Glucagon (Glucagen) 1 mg Q15M PRN IM DECREASED GLUCOSE; Start 01/17/17 at 16:30 Glucose 15 gm 15 gm Q15M PRN BUCCAL DECREASED GLUCOSE; Start 01/17/17 at 16:30 Ondansetron HCl/ Dextrose (Zofran Inj/D5W) 54 ml @ 108 mls/hr Q6H PRN IV NAUSEA AND/OR VOMITING Last administered on 01/18/17 01:13; Admin Dose 108 MLS/ HR; Start 01/17/17 at 23:30 Famotidine (Pepcid) 20 mg DAILY PO Last administered on 01/27/17 08:40; Admin Dose 20 MG; Start 01/20/17 at 12:30 Heparin Sodium (Porcine) (Heparin (5000 Units/0.5 ml)) 5,000 unit BID SC Last administered on 01/27/17 08:44; Admin Dose 5,000 UNIT; Start 01/25/17 at 10:00 Insulin Glargine (Lantus) 12 unit DAILY@20 SC Last administered on 01/26/17 21: 41; Admin Dose 12 UNIT; Start 01/26/17 at 20:00 DAFNE GARCIA Jan 27, 2017 11:53
[2017-01-27 19:38] VITALS: BP 127/65; RESP 20
[2017-01-27] MEDS ORDERED: INSULIN ASPART [NOVOLOG] 3 ML PEN SC ONE (21:00)
[2017-01-27] MEDS: INSULIN GLARGINE [LANtus] 3 ML PEN SC SCH (21:08)
[2017-01-27] MEDS: PRAMIPEXOLE 0.25 MG TAB PO SCH (21:16)
[2017-01-27] MEDS: ATORVASTATIN 20 MG TAB PO SCH (21:16)
[2017-01-27] MEDS: MONTELUKAST 10 MG TAB PO SCH (21:16)
[2017-01-27] MEDS: ZOLPIDEM 5 MG TAB PO PRN (21:41)
[2017-01-28] MEDS: ALBUTEROL HFA 8 GM INHALER INH SCH ×6 (01:00→20:13)
[2017-01-28] MEDS: ACCU-CHEK XX SCH (01:56)
[2017-01-28 05:05] LABS: ADD SCAN DIFF NO
[2017-01-28 05:08] LABS: BASOPHILS % 0.5 % (0.0-2.0); EOSINOPHILS # 0.2 10^3/ul (0.0-0.5); HEMOGLOBIN 9.8 g/dl (12.0-16.0); LYMPHOCYTES # 2.2 10^3/ul (0.8-2.9); LYMPHOCYTES % 26.3 % (15.0-51.0); MEAN CORPUSCULAR HEMOGLOBIN 29.6 pg (29.0-33.0); MEAN CORPUSCULAR HGB CONC 31.6 g/dl (32.0-37.0); MEAN CORPUSCULAR VOLUME 93.7 fl (82.0-101.0); MEAN PLATELET VOLUME 11.2 fl (7.4-10.4); MONOCYTE # 0.8 10^3/ul (0.3-0.9); MONOCYTES % 9.3 % (0.0-11.0); NEUTROPHIL # 4.8 10^3/ul (1.6-7.5); NEUTROPHILS % 57.6 % (39.0-77.0); PLATELET COUNT 223 10^3/UL (140-415); RED BLOOD COUNT 3.31 10^6/ul (4.20-5.40); WHITE BLOOD COUNT 8.4 10^3/ul (4.8-10.8)
[2017-01-28 05:54] LABS: POTASSIUM 4.2 mmol/L (3.5-5.1)
[2017-01-28 05:56] LABS: CREATININE 1.72 mg/dl (0.44-1.00)
[2017-01-28 05:58] LABS: PHOSPHORUS 4.1 mg/dl (2.5-4.9)
[2017-01-28 06:01] LABS: CALCIUM 8.6 mg/dl (8.4-10.2); MAGNESIUM 1.7 mg/dl (1.7-2.5)
[2017-01-28] MEDS: LEVOTHYROXINE 112 MCG TAB PO SCH (06:44)
[2017-01-28 08:14] VITALS: BP 121/56; RESP 20
[2017-01-28] MEDS: ASPIRIN 81 MG TAB PO SCH (08:19)
[2017-01-28] MEDS: LORATADINE 10 MG TAB PO SCH (08:20)
[2017-01-28] MEDS: GABAPENTIN 300 MG CAP PO SCH ×2 (08:20→20:13)
[2017-01-28] MEDS: EZETIMIBE 10 MG TAB PO SCH (08:20)
[2017-01-28] MEDS: FAMOTIDINE 20 MG TAB PO SCH (08:20)
[2017-01-28] MEDS: INSULIN ASPART [NOVOLOG] 3 ML PEN SC SCH ×7 (08:22→20:28)
[2017-01-28] MEDS: HEPARIN 5,000 UNIT/0.5 ML VIAL SC SCH ×2 (08:23→20:21)
--- NOTE | 2017-01-28 08:55 | PN ---
DATE: 01/28/2017 SUBJECTIVE: The patient is stable, no acute events overnight. No fevers, chills, nausea, vomiting, no shortness of breath. Patient is feeling better. OBJECTIVE: VITAL SIGNS: Blood pressure 126/65, respirations 20, pulse 93, temperature 97.8. HEENT: Head is normocephalic. NECK: Supple. HEART: Regular rate. LUNGS: Show diminished breath sounds at the base. ABDOMEN: Soft, nontender to palpation. No rebound or guarding. EXTREMITIES: Negative for clubbing, cyanosis. Trace edema. DERMATOLOGIC: No rashes. MUSCULOSKELETAL: No joint effusions. NEUROLOGIC: No change in exam. MEDICATIONS: The patient's medications have been reviewed. LABORATORY DATA: Showed sodium 140, potassium 4.2, chloride 107, BUN 52, creatinine 1.72. White co unt 8.4, hemoglobin 9.8, hematocrit 31.0, platelet count 223. ASSESSMENT AND PLAN: 1. Nonoliguric acute kidney injury on top of chronic kidney disease with previous baseline creatini ne 1.0 mg/dL. Etiology of acute kidney injury was secondary to acute tubular necrosis. Patient's r enal function has recovered as renal function has stabilized around a creatinine of 1.7 to 1.8 mg/dL . The patient's last hemodialysis was 6 days ago. At this point, will remove the patient's Chano catheter as she is no longer dialysis dependent. Will continue to monitor renal function. Will ot herwise continue supportive care, renally dose all meds, avoid nephrotoxins. 2. Hypomagnesemia, resolved. 3. Metabolic acidosis, resolved. 4. Mineral bone disorder. Continue to monitor calcium and phosphorous levels. 5. Anemia. Continue to monitor hemoglobin and hematocrit levels. 6. Congestive heart failure, clinically improved. Continue medical management. 7. Hypothyroidism. Continue Synthroid. 8. Diabetes. Continue current insulin regimen. 9. Pulmonary hypertension. Continue medical management. Dictated By: ELINA LAFLEUR/AYDIN Conf#: [id number] DID#: [id number]
[2017-01-28] MEDS: ALBUTEROL/IPRATROPIUM (NEB) 3 ML AMP HHN SCH ×4 (08:56→20:33)
--- NOTE | 2017-01-28 11:06 | PN ---
Date/Time of Note Date/Time of Note DATE: 01/28/17 TIME: 11:02 Assessment/Plan Lines/Catheters IV Catheter Type (from [facility]): [place] in Place (from [facility]): No Assessment/Plan Chief Complaint/Hosp Course -Acute renal failure. It seems the patient has developed significant renal failure and hyperkalemia in which she required hemodialysis urgently. S/P emergent hemodialysis catheter and no resolving. no further vascular intervention needed -Optimize vascular status (BP meds, diet, nutrition, exercise, sugar control, antiplatelets and weight loss). -Discussed findings, plan and management with the patient's primary service. -Thank you for allowing us to partake in the care of your patient. Please call with any questions. Problems: Subjective 24 Hr Interval Summary no new vascular events overnight Exam/Review of Systems Vital Signs Vitals Vital Signs Date Time Temp Pulse Resp B/P Pulse Ox O2 Delivery O2 Flow Rate FiO2 01/28/17 08:56 72 22 96 21 01/28/17 08:14 98.8 121/56 01/27/17 08:17 Nasal Cannula 2.0 Intake and Output 01/27/17 01/27/17 01/28/17 15:00 23:00 07:00 Intake Total 1520 ml 460 ml Balance 1520 ml 460 ml Exam Free Text/Dictation GENERAL: Patient is awake and alert; PULMONARY: Coarse breath sounds bilaterally CARDIOVASCULAR: S1, S2 present. ABDOMEN: Soft, nontender, nondistended. Bowel sounds positive. Large truncal obesity and pannus. EXTREMITIES: Very large legs. Unable to palpate the femoral pulse secondary to body habitus. Unable to palpate pedal pulses secondary to edema. Motor and sensory seem to be intact. Capillary refill of 3 to 4 seconds. Extensive varicose veins throughout the lower legs from ankles all the way up to the knees and the large calves. Results Result Diagram: 01/28/1741901/28/17419 ALEIDA JOHNSON MD Jan 28, 2017 11:06
--- NOTE | 2017-01-28 12:25 | PN ---
Date/Time of Note Date/Time of Note DATE: 01/28/17 TIME: 12:23 Assessment/Plan VTE Prophylaxis VTE Prophylaxis Intervention: heparin Lines/Catheters IV Catheter Type (from [facility]): Saline Lock Urinary Cath still in place: No Assessment/Plan Chief Complaint/Hosp Course Assessment and plan 1. Acute renal failure. Brick And Tile Making Machine Operator following. Suspect etiology from acute tubular necrosis (ARB or NSAID). Patient has been off dialysis for several days. Chano catheter removed. Monitor renal function. Continue with nephrology recommendations 2. Hyperkalemia secondary to #1. Electrolytes stable. Will monitor for now. 3. Type 2 diabetes. A1c noted at 7.7. Noted to be hyperglycemic. Basal and mealtime insulin adjusted 4. Pulmonary hypertension. Patient noted with P ASP of 49 mmHg per echocardiogram. Continue on O2 as needed 5. Dyspnea. Continue on statin 6. Acute respiratory failure likely secondary to diastolic dysfunction and fluid overload. Respiratory status improved at this time. Math Teacher is following 7. Hypothyroidism. Continue on Synthroid 8. Morbid obesity. Weight reduction was advised DVT prophylaxis: His heparin Disposition and plan: Continue to monitor renal function. Does appear to be improving. Noted to be hyperglycemic. Mealtime and basal insulin adjusted. Discharge when cleared by consultants Discussed plan of care with Dr. Juarez Problems: Subjective 24 Hr Interval Summary Free Text/Dictation Comfortable at present. No apparent distress seen at this Exam/Review of Systems Vital Signs Vitals Vital Signs Date Time Temp Pulse Resp B/P Pulse Ox O2 Delivery O2 Flow Rate FiO2 01/28/17 08:56 72 22 96 21 01/28/17 08:14 98.8 121/56 01/27/17 08:17 Nasal Cannula 2.0 Intake and Output 01/27/17 01/27/17 01/28/17 15:00 23:00 07:00 Intake Total 1520 ml 460 ml Balance 1520 ml 460 ml Exam General: Morbidly obese. No apparent distress seen Eyes: Equal round reactive to light Neck: No JVD cardiac: Regular rate Pulmonary: Minimally diminished at lung bases. No wheezing or rhonchi GI: Obese. Soft nontender Extremities: Minimal edema noted bilateral lower extremities still Skin: CDI Neurologic: AL O 4 Results Result Diagram: 01/28/17 0420 01/28/17 0420 Results 24 hrs Laboratory Tests Test 01/27/17 17:27 01/27/17 20:45 01/28/17 01:52 01/28/17 04:20 Bedside Glucose 401 *H 385 H 207 White Blood Count 8.4 # Red Blood Count 3.31 L Hemoglobin 9.8 L Hematocrit 31.0 L Mean Corpuscular Volume 93.7 Mean Corpuscular Hemoglobin 29.6 Mean Corpuscular Hemoglobin Concent 31.6 L Red Cell Distribution Width 13.0 Platelet Count 223 # Mean Platelet Volume 11.2 H Neutrophils % 57.6 Lymphocytes % 26.3 Monocytes % 9.3 Eosinophils % 2.0 Basophils % 0.5 Nucleated Red Blood Cells % 0.0 Neutrophils # 4.8 Lymphocytes # 2.2 Monocytes # 0.8 Eosinophils # 0.2 Basophils # 0.0 Nucleated Red Blood Cells # 0.0 Sodium Level 140 Potassium Level 4.2 Chloride Level 107 Carbon Dioxide Level 23 Anion Gap 14 Blood Urea Nitrogen 52 H Creatinine 1.72 H Glucose Level 198 Calcium Level 8.6 Phosphorus Level 4.1 Magnesium Level 1.7 Test 01/28/17 08:17 Bedside Glucose 200 Medications Medications Current Medications Aspirin (Aspirin) 81 mg DAILY PO Last administered on 01/28/17 08:19; Admin Dose 81 MG; Start 01/18/17 at 09:00 Carvedilol (Coreg) 3.125 mg BID PO Last administered on 01/28/17 08:20; Admin Dose 3.125 MG; Start 01/17/17 at 21:00 EZETIMIBE (Zetia) 10 mg DAILY PO Last administered on 01/28/17 08:20; Admin Dose 10 MG; Start 01/18/17 at 09:00 Gabapentin (Neurontin) 300 mg BID PO Last administered on 01/28/17 08:20; Admin Dose 300 MG; Start 01/17/17 at 21:00 Loratadine (Claritin) 10 mg DAILY PO Last administered on 01/28/17 08:20; Admin Dose 10 MG; Start 01/18/17 at 09:00 Montelukast Sodium (Singulair) 10 mg QHS PO Last administered on 01/27/17 21: 16; Admin Dose 10 MG; Start 01/17/17 at 21:00 Nitroglycerin (Nitroglycerin (Sl Tab) 0.4 Mg) 1 tab Q5M PRN SL ANGINA; Start at 15:00 Pramipexole (Mirapex) 0.5 mg HS PO Last administered on 01/27/17 21:16; Admin Dose 0.5 MG; Start 01/17/17 at 21:00 Tramadol HCl (Ultram) 50 mg BID PRN PO PAIN Last administered on 01/23/17 16:04 ; Admin Dose 50 MG; Start 01/17/17 at 15:00 Atorvastatin Calcium (Lipitor) 20 mg DAILY@21 PO Last administered on 21:16; Admin Dose 20 MG; Start 01/17/17 at 21:00 Miscellaneous Information 1 ea NOTE XX ; Start 01/17/17 at 16:30 Glucose (Glutose) 15 gm Q15M PRN PO DECREASED GLUCOSE; Start 01/17/17 at 16:30 Glucose (Glutose) 22.5 gm Q15M PRN PO DECREASED GLUCOSE; Start 01/17/17 at 16: 30 Dextrose (D50w Syringe) 25 ml Q15M PRN IV DECREASED GLUCOSE Last administered on 01/18/17 06:06; Admin Dose 25 ML; Start 01/17/17 at 16:30 Dextrose (D50w Syringe) 50 ml Q15M PRN IV DECREASED GLUCOSE Last administered on 01/18/17 11:11; Admin Dose 50 ML; Start 01/17/17 at 16:30 Glucagon (Glucagen) 1 mg Q15M PRN IM DECREASED GLUCOSE; Start 01/17/17 at 16:30 Glucose 15 gm 15 gm Q15M PRN BUCCAL DECREASED GLUCOSE; Start 01/17/17 at 16:30 Ondansetron HCl/ Dextrose (Zofran Inj/D5W) 54 ml @ 108 mls/hr Q6H PRN IV NAUSEA AND/OR VOMITING Last administered on 01/18/17 01:13; Admin Dose 108 MLS/ HR; Start 01/17/17 at 23:30 Famotidine (Pepcid) 20 mg DAILY PO Last administered on 01/28/17 08:20; Admin Dose 20 MG; Start 01/20/17 at 12:30 Heparin Sodium (Porcine) (Heparin (5000 Units/0.5 ml)) 5,000 unit BID SC Last administered on 01/28/17 08:23; Admin Dose 5,000 UNIT; Start 01/25/17 at 10:00 Diagnostic Test (Pha) (Accu-Chek) 1 ea XX Last administered on 01/28/17t 01: 56; Admin Dose 1 EA; Start 01/28/17 at 02:00 Insulin Glargine (Lantus) 16 unit DAILY@20 SC ; Start 01/28/17 at 20:00; Status DAFNE MAIN Jan 28, 2017 12:25
[2017-01-28] MEDS ORDERED: CARV3.1260 PO (12:32)
[2017-01-28] MEDS ORDERED: NOVO3I SC (12:32)
[2017-01-28] MEDS ORDERED: LORA10TA3 PO (12:32)
[2017-01-28] MEDS ORDERED: SYN112 PO (12:32)
[2017-01-28] MEDS ORDERED: EZET10TA3 PO (12:32)
[2017-01-28] MEDS ORDERED: MONT10TA24 PO (12:32)
[2017-01-28] MEDS ORDERED: PRAM0.2539 PO (12:32)
[2017-01-28] MEDS ORDERED: GABA300C16 PO (12:32)
[2017-01-28] MEDS ORDERED: LANT3I SC (12:32)
[2017-01-28] MEDS ORDERED: ATOR20TA65 PO (12:32)
[2017-01-28] MEDS ORDERED: ALBU18HF INH (12:32)
[2017-01-28 19:49] VITALS: BP 114/56; RESP 18
[2017-01-28] MEDS ORDERED: INSULIN GLARGINE [LANtus] 3 ML PEN SC SCH (20:00)
[2017-01-28] MEDS: ATORVASTATIN 20 MG TAB PO SCH (20:13)
[2017-01-28] MEDS: PRAMIPEXOLE 0.25 MG TAB PO SCH (20:14)
[2017-01-28] MEDS: MONTELUKAST 10 MG TAB PO SCH (20:15)
[2017-01-28] MEDS: ZOLPIDEM 5 MG TAB PO PRN (21:51)
[2017-01-29] MEDS: ALBUTEROL HFA 8 GM INHALER INH SCH ×4 (01:38→13:01)
[2017-01-29] MEDS: ACCU-CHEK XX SCH (01:38)
[2017-01-29 05:19] LABS: POTASSIUM 4.5 mmol/L (3.5-5.1)
[2017-01-29 05:21] LABS: CREATININE 1.56 mg/dl (0.44-1.00)
[2017-01-29 05:22] LABS: CALCIUM 9.3 mg/dl (8.4-10.2); MAGNESIUM 1.5 mg/dl (1.7-2.5); PHOSPHORUS 4.5 mg/dl (2.5-4.9)
[2017-01-29] MEDS: LEVOTHYROXINE 112 MCG TAB PO SCH (07:23)
[2017-01-29] MEDS ORDERED: MAGNESIUM OXIDE 400 MG TAB PO ONE (07:30)
[2017-01-29 07:38] VITALS: BP 106/58; RESP 18
--- NOTE | 2017-01-29 08:36 | PN ---
DATE: 01/29/2017 SUBJECTIVE: The patient is stable, no acute events overnight. No fevers, chills, nausea, vomiting. OBJECTIVE: VITAL SIGNS: Blood pressure is 114/56, respiration 18, pulse 88, temperature 97.4. HEENT: Head is normocephalic. NECK: Supple. HEART: Regular rate. LUNGS: Show diminished breath sounds at the base. ABDOMEN: Soft, nontender to palpation. No rebound or guarding. EXTREMITIES: Negative for clubbing, cyanosis, no edema. DERMATOLOGIC: No rashes. MUSCULOSKELETAL: No joint effusions. NEUROLOGIC: No change in exam. MEDICATIONS: The patient's medications have been reviewed. LABORATORY DATA: Shows sodium 139, potassium 4.5, chloride 105, BUN 42, creatinine 1.56, magnesium 1.5. ASSESSMENT AND PLAN: 1. Nonoliguric acute kidney injury on top of chronic kidney disease with previous baseline creatini ne 1.0 mg/dL. Etiology of acute kidney injury is secondary to acute tubular necrosis. Patient's re nal function has recovered. The patient is status post hemodialysis. The patient has been off hemo dialysis now for approximately 1 week. The patient's dialysis catheter was discontinued yesterday. Currently, at this point, would continue current treatment plan, supportive care, renally dose all meds. The patient may be discharged home from nephrology standpoint. The patient was informed to f ollow up with myself in 1 week's time after discharge. 2. Hypomagnesemia. Will replete with magnesium oxide 400 mg p.o. x1. 3. Anemia. Continue to monitor hemoglobin and hematocrit levels. 4. Chronic obstructive pulmonary disease, clinically improved. Continue medical management. 5. Hypothyroidism. Continue Synthroid. 6. Hypertension. Blood pressure well controlled. Continue medical management. 7. Diabetes. Continue Accu-Cheks and sliding scale. 8. History of pulmonary hypertension. Dictated By: ELINA LAFLEUR/AYDIN Conf#: [id number] DID#: [id number]
[2017-01-29] MEDS: ASPIRIN 81 MG TAB PO SCH (09:08)
[2017-01-29] MEDS: EZETIMIBE 10 MG TAB PO SCH (09:08)
[2017-01-29] MEDS: INSULIN ASPART [NOVOLOG] 3 ML PEN SC SCH ×4 (09:08→12:57)
[2017-01-29] MEDS: GABAPENTIN 300 MG CAP PO SCH (09:09)
[2017-01-29] MEDS: LORATADINE 10 MG TAB PO SCH (09:09)
[2017-01-29] MEDS: FAMOTIDINE 20 MG TAB PO SCH (09:09)
[2017-01-29] MEDS: HEPARIN 5,000 UNIT/0.5 ML VIAL SC SCH (09:10)
[2017-01-29] MEDS: ALBUTEROL/IPRATROPIUM (NEB) 3 ML AMP HHN SCH ×2 (09:47→14:43)
--- NOTE | 2017-01-29 11:24 | PDOCDIS ---
Discharge Instructions DIAGNOSIS Discharge Diagnosis: 1. acute renal failure 2. diabetes 3. morbid obesity 4. hypertension HOME CARE INSTRUCTIONS: Diet Instructions: Reduced CalorieSpecial Diet: CARB CONTROLED DIET. FOLLOW UP/APPOINTMENTS Appointments 1. Follow up with Dr. Luca Ramirez in one week 2. Follow up with your primary care provider in 1-2 weeks DAFNE GARCIA Jan 29, 2017 11:24
[2017-01-29] MEDS ORDERED: ZOLP10TA5 PO (12:10)
--- NOTE | 2017-02-02 17:14 | DS ---
Date/Time of Note Date/Time of Note DATE: 02/02/17 TIME: 17:08 Discharge Summary Admission/Discharge Info Admit Date/Time Jan 17, 2017 at 12:29 Discharge Date/Time Jan 29, 2017 at 15:20 Final Diagnosis 1. Acute renal failure. 2. Hyperkalemia secondary to #1. 3. Type 2 diabetes. A1c noted at 7.7. 4. Pulmonary hypertension. 5. Dyspnea. 6. Acute respiratory failure likely secondary to diastolic dysfunction and fluid overload. 7. Hypothyroidism. 8. Morbid obesity. Patient Condition: Stable Consults 1. Dr. Luca Ramirez 2. Dr. Yunior Goldberg 3. Dr. Buchanan [facility] Course This is a 76-year-old female with history of diabetes, CHF, dyslipidemia, hypertension, obesity, hypothyroidism, who came to [facility] after suffering from a mechanical fall from suspect syncope. According to report patient was in her normal state of health. She reportedly went to the bank in the morning and then suffered from a fall. She was brought to [facility] and found to be in acute renal failure with creatinine as high as 9.24 and BUN of 91. She was also hypoglycemic with blood glucose of 43 she was reportedly given dextrose in the ER with good response. Of note, patient had just been started on insulin (exact units unknown as outpatient). Patient was additionally found to be hyperkalemic with potassium as high as 10.4. Of note renal function in September 2015 was noted to be normal. CT scan of her head showed no acute intracranial bleed or mass. She was seen by oyster cultivator. Likely etiology of patient's acute renal failure was acute tubular necrosis from either ARB or NSAID. Patient was placed on temporary dialysis and she did recover well. She was also provided with Kayexalate initially for her hyperkalemia and with diuresis her electrolyte imbalances did improve. Patient was otherwise optimized medically. She was continued on insulin for her diabetes. She is also seen by wastewater supervisor. She was initially with respiratory distress likely secondary to diastolic dysfunction and fluid overload and she was seen by operations and maintenance supervisor for pulmonary maintenance. She was resumed on statin for dyspnea and Synthroid for hypothyroidism. He was also noted to be morbidly obese and advised to weight reduction. During the course of stay she did improve. She did have good response to medical management and her renal function did improve. The plan of care was discussed with the patient and family and family and patient did verbalize understanding. On the day of discharge patient was in stable condition Discussed plan of care with Dr. Juarez Discharge process 40 minutes Home Meds Active Scripts Zolpidem Tartrate* (Zolpidem Tartrate*) 10 Mg Tablet, 10 MG PO QHS Y for INSOMNIA, #20 TAB Prov:DAFNE GARCIA 01/29/17 Pramipexole* (Mirapex*) 0.25 Mg Tablet, 0.5 MG PO HS for 30 Days, TAB Prov:DAFNE GARCIA 01/28/17 Montelukast Sodium* (Montelukast Sodium*) 10 Mg Tablet, 10 MG PO QHS for 30 Days , TAB Prov:DAFNE GARCIA 01/28/17 Loratadine* (Loratadine*) 10 Mg Tablet, 10 MG PO DAILY for 30 Days, TAB Prov:DAFNE GARCIA 01/28/17 Levothyroxine Sodium* (Levothyroxine Sodium*) 112 Mcg Tablet, 112 MCG PO AC BREAKFAST for 30 Days, TAB Prov:DAFNE GARCIA 01/28/17 Insulin Glargine* (Lantus*) 100 Unit/Ml Soln, 15 UNIT SC DAILY@20 for 30 Days Prov:DAFNE GARCIA 01/28/17 Insulin Aspart* (Novolog Insulin Pen*) 100 Unit/Ml Soln, 5 UNIT SC WITH MEALS for 30 Days Prov:DAFNE GARCIA 01/28/17 Gabapentin* (Gabapentin*) 300 Mg Capsule, 300 MG PO BID for 30 Days, CAP Prov:DAFNE GARCIA 01/28/17 Ezetimibe* (Zetia*) 10 Mg Tablet, 10 MG PO DAILY for 30 Days, TAB Prov:DAFNE GARCIA 01/28/17 Carvedilol* (Carvedilol*) 3.125 Mg Tablet, 3.125 MG PO BID for 30 Days, TAB Prov:DAFNE GARCIA 01/28/17 Atorvastatin Calcium (Atorvastatin Calcium) 20 Mg Tablet, 20 MG PO DAILY@21 for 30 Days, TAB Prov:DAFNE GARCIA 01/28/17 Albuterol Sulfate* (Ventolin HFA*) 18 Gm Hfa.aer.ad, 2 PUFF INH Q4H RESP THERAPY , #1 INH Prov:DAFNE GARCIA 01/28/17 Nitroglycerin* (Nitrostat*) 25 Tab Subl, 0.4 MG SL Q5M Y for ANGINA, #30 3 dose max Prov:DAFNE GARCIA 09/27/15 Albuterol Sulfate* (Albuterol Sulfate* HFA) 8.5 Gm Hfa.aer.ad, 2 PUFF IH Q4 for SHORTNESS OF BREATH for 30 Days, EA 2 Refills Prov:RACHID SHAH MD 12/22/14 Reported Medications Aspirin* (Aspirin* Chew) 81 Mg Tab.chew, 81 MG PO DAILY, TAB.CHEW 01/17/17 Linaclotide (LINZESS) 145 Mcg Capsule, 145 MCG PO DAILY, CAP 09/25/15 Tramadol HCl (Tramadol HCl) 50 Mg Tab, 50 MG PO BID Y for PAIN, TAB 08/05/14 Discontinued Reported Medications Metformin* (Glucophage*) 850 Mg Tablet, 850 MG PO WITH BREAKFAST DINNE, #30 TAB 01/17/17 Valsartan-Hydrochlorothiazide (Valsartan-HCTZ) 160-25 Mg Tablet, 1 TAB PO DAILY , #30 TAB 01/17/17 Pramipexole* (Pramipexole*) 0.5 Mg Tablet, 0.5 MG PO HS, TAB 01/17/17 Loratadine* (Loratadine*) 10 Mg Tablet, 10 MG PO DAILY, #30 TAB 01/17/17 Glimepiride* (Glimepiride*) 4 Mg Tablet, 4 MG PO WITH BREAKFAST DINNE, TAB 01/17/17 Ezetimibe* (Zetia*) 10 Mg Tablet, 10 MG PO DAILY, TAB 01/17/17 Simvastatin* (Zocor*) 40 Mg Tablet, 40 MG PO QHS, #30 TAB 01/17/17 Potassium Chloride* (Potassium Chloride*) 8 Meq Capsule.er, 8 MEQ PO DAILY, CAP 01/17/17 Furosemide* (Furosemide*) 40 Mg Tablet, 40 MG PO DAILY, TAB 01/17/17 Amlodipine Besylate* (Amlodipine Besylate*) 10 Mg Tablet, 10 MG PO DAILY, #30 TAB 01/17/17 Montelukast Sodium* (Singulair*) 10 Mg Tablet, 10 MG PO QHS, #30 TAB 09/25/15 Celecoxib* (Celebrex*) 200 Mg Capsule, 200 MG PO DAILY, CAP 09/25/15 Gabapentin* (Gabapentin*) 300 Mg Capsule, 300 MG PO BID, CAP 09/25/15 Carvedilol* (Coreg*) 3.125 Mg Tablet, 3.125 MG PO BID, TAB 12/20/14 Levothyroxine Sodium* (Levoxyl*) 112 Mcg Tablet, 112 MCG PO AC BREAKFAST, TAB 08/05/14 Follow-up Plan HOME CARE INSTRUCTIONS: Diet Instructions: Reduced CalorieSpecial Diet: CARB CONTROLED DIET. FOLLOW UP/APPOINTMENTS Appointments 1. Follow up with Dr. Luca Ramirez in one week 2. Follow up with your primary care provider in 1-2 weeks DAFNE GARCIA Feb 02, 2017 17:14
== END 2017-01-29 15:20 | disposition home health service (06) | DRG 682 ==
LOC: E/R 09:47 → TEL 12:29 → MS1 01-21 03:58
PROVIDERS: ADMIT Family Medicine; ATTEND Family Medicine
PROC: 5A1D60Z (ICD-10-PCS; principal; 2017-01-18)
DX: N18.3 Chronic kidney disease, stage 3 (moderate) (principal); J96.01 Acute respiratory failure with hypoxia; I50.33 Acute on chronic diastolic (congestive) heart failure; E87.2 Acidosis; E87.1 Hypo-osmolality and hyponatremia; Z68.42 Body mass index [BMI] 45.0-49.9, adult; I13.0 Hypertensive heart and chronic kidney disease with heart failure and stage 1 through stage 4 chronic kidney disease, or unspecified chronic kidney disease; E11.22 Type 2 diabetes mellitus with diabetic chronic kidney disease; D69.6 Thrombocytopenia, unspecified; J44.9 Chronic obstructive pulmonary disease, unspecified; I27.2 Other secondary pulmonary hypertension; N17.9 Acute kidney failure, unspecified; N14.1 Nephropathy induced by other drugs, medicaments and biological substances; E87.5 Hyperkalemia; E16.2 Hypoglycemia, unspecified; E66.01 Morbid (severe) obesity due to excess calories; E83.9 Disorder of mineral metabolism, unspecified; E78.5 Hyperlipidemia, unspecified; E03.9 Hypothyroidism, unspecified; E11.65 Type 2 diabetes mellitus with hyperglycemia; E83.42 Hypomagnesemia; D64.9 Anemia, unspecified; W19.XXXA Unspecified fall, initial encounter; Y92.413 State road as the place of occurrence of the external cause; Z79.4 Long term (current) use of insulin
CPT/HCPCS: 36415; 70450; 71010; 76775; 80048; 80053; 80061; 80076; 80307; 81001; 81003; 82043; 82550; 82553; 82570; 82595; 82947; 82962; 83036; 83735; 84100; 84155; 84156; 84165; 84166; 84300; 84436; 84443; 84479; 84484; 85025; 85610; 85730; 86021; 86038; 86160; 86226; 86320; 86325; 86430; 86704; 86709; 86803; 87040; 87086; 87340; 90935; 92526; 92610; 93005; 93306; 93880; 94640; 94664; 96374; 96375; 97116; 97162; 97530; J0610; J1644; J1815; J2405; J2920; J3475; J7030; J7042

== ENCOUNTER 2018-01-20 18:15 | Emergency (ER) | END 2018-01-20 19:07 | disposition left against medical advice (07) ==